=== PATIENT | male | born 1960 | race Caucasian/White ===

== ENCOUNTER 2021-12-11 21:33 | Observation (INO) ==
--- NOTE | 2021-12-11 21:42 | Emergency Department Note ---
Impression & Plan Acute dehydration, Nausea and vomiting, Abdominal discomfort, Prostate cancer metastatic to bone ED Provider Note NAME: AMBER PERRY AGE: 61 SEX: M : 1960 ARRIVES VIA: Walk-In INFORMANT: [Patient][, ] ED PROVIDER(S): [Manuel Keane MD] Chief Complaint: Nausea vomiting HPI: Patient presents primarily with concern for nausea vomiting patient has been unable to keep anything down for about 3-day period. The patient states that he did have some diarrhea and today noticed some slight blood in the stools . The patient does have abdominal discomfort which is generalized does not describe it as pain. Patient denies any fevers but has felt chilled. Patient does have a history of prostate and bone CA for which the patient does follow with hematology oncology Dr. Roland. The patient most recently had chemotherapy 1 week prior. Patient denies any upper respiratory symptoms. Patient denies any chest pains or shortness of breath. The patient has noticed some slight leg swelling may be slightly worse compared to before. Patient denies any known sick contacts or recent travel. Patient denies any dysuria or hematuria. ROS: See HPI for pertinent positives and negatives. A total of 10 systems were reviewed and otherwise negative. Past medical history: See below Surgical history: See below Social history: See below Physical Exam: GENERAL: NAD, [wearing a mask,] non-toxic. EYE EXAM: Normal conjunctiva. PERRL, no anisocoria and EOM's grossly intact w/o pain. NECK: Supple, no nuchal rigidity, no adenopathy, non-tender. No signs of meningismus. LUNGS: Clear to auscultation. Normal chest wall mechanics. HEART: Tachycardic and regular, no MRG. ABDOMEN: Abdomen soft, mild discomfort throughout but without peritonitis or localized pain, normo-active bowel sounds, no masses, no rebound or guarding. BACK: No CVA TTP. SKIN: No rashes and no bruising. UPPER EXTREMITIES: Upper extremities are grossly normal. LOWER EXTREMITIES: Grossly normal, no edema. NEURO EXAM: A&O x3, cranial nerves II-XII grossly intact, normal speech, moves all 4 extremities on command w/o issue. Differential diagnoses: Gastroenteritis, food borne illness, infections, appendicitis, diverticulitis, inflammatory bowel disease, obstruction, GI bleed, biliary pathology, volvulus, as well as other pathologies. Course: Patient was seen and evaluated the bedside. Full history physical exam was performed. [EKG interpreted by me] Sinus tachycardia with PVCs noted, rate of 124, normal intervals, normal axis, no ST changes. Imaging Studies: See Below [Cardiac monitoring: An order was placed for continuous cardiac monitoring. The monitor shows a rate of 112 with tachycardic and regular rhythm.] MDM: Patient presents due to concern for vomiting with generalized abdominal discomfort. Blood work was obtained along with procalcitonin and blood cultures. The patient was ordered IV fluids and antiemetics. Upon reassessment the patient was feeling improved. The patient states that abdominal discomfort had also improved. The patient does have a white count of 18 I do think the patient may have an element of a enteritis which may be causing his symptoms. Given the patient does have a white count with associated mild elevation of procalcitonin Zosyn was also ordered. Patient did have a white count of 18 with a hemoglobin of 12. The patient's kidney function does show prerenal azotemia. Mild hypokalemia was noted. COVID-negative. Given the patient's history of chemotherapy and cancer with associated chills and white count meeting sepsis criteria do think the patient would benefit from further treatment as an inpatient. I did speak with Dr. Campos and the patient was admitted to the inpatient service. Urinalysis was pending at the time of admission. Past Med/Surg History Social History Smoking Status: Never smoker Second Hand Exposure: No; Do You Dip or Chew Tobacco: Yes; Tobacco Cessation Education Requested by Patient: No Hx Alcohol Use: No Hx Substance Use: No Preferred Language: Bulgarian Communication Ability: Effective Restorative Coordinator Required: No Beliefs That Will Affect Care: None marital status: Single Current Living Situation: Alone Other Information That Helps Us Care for You: No Feels Safe at Home: Yes Safety Concerns: Feels Safe At This Time Assistive Devices: Cane, Walker and Wheelchair Allergies Allergies Allergy/AdvReac Type Severity Reaction Status Date / Time No Known Allergies Allergy Verified 12/12/21 04:36 Home Meds Home Medications Medication Instructions Recorded Confirmed clonidine HCl 0.1 mg tablet 0.1 mg PO TID 12/12/21 12/12/21 cyclobenzaprine 10 mg tablet 10 mg PO BID 12/12/21 12/12/21 metoprolol succinate 50 mg 50 mg PO DAILY 12/12/21 12/12/21 tablet,extended release 24 hr ondansetron HCl 8 mg tablet 8 mg PO Q6 PRN 12/12/21 12/12/21 oxycodone 10 mg tablet 10 mg PO .Q4-6HRS PRN 12/12/21 12/12/21 prednisone 5 mg tablet 5 mg PO BID 12/12/21 12/12/21 Previous Rx's Medication Instructions Recorded diphenoxylate-atropine 2.5 1 tab PO Q6H PRN #14 tab 12/12/21 mg-0.025 mg tablet (Lomotil) Results & Data (ED) Vital Signs Vital Signs - 24 hr 12/11/21 21:35 12/11/21 22:33 12/12/21 00:06 Temperature 37.2 C Temperature Source Oral Pulse Rate 125 H Pulse Rate [Apical] 114 H 113 H Respiratory Rate 16 22 20 Respiratory Effort / Characteristics Non-Labored Spontaneous Non-Labored Non-Labored Spontaneous Respiratory Depth Normal Normal Normal Blood Pressure 153/106 H Blood Pressure [Left Arm] 170/110 H 151/116 H Blood Pressure Mean 121 Blood Pressure Mean [Left Arm] 130 127 Blood Pressure Position Sitting Blood Pressure Position [Left Arm] Sitting Pulse Oximetry 98 98 97 Oxygen Delivery Method Room Air Room Air Room Air Sepsis Recent Fever Within 48 Hours No Sepsis New/Unexplained Change in Mental Status N/A Sepsis Action Taken by Nursing No Action Required Home Medications Current Medication List: was personally reviewed by me Laboratory Data Attestation: I reviewed the patient's lab results. Result diagrams: 12/12/21 05:32 12/12/21 05:32 Lab Results 12/11/21 12/11/21 12/11/21 Range/Units 22:46 22:46 22:46 WBC 18.69 H (4.8-10.8) K/uL RBC 3.89 L (4.7-6.1) M/uL Hgb 12.0 L (14.0-18.0) g/dL Hct 35.4 L (42-52) % MCV 91.0 (80-100) fL MCH 30.8 (25-34) pg MCHC 33.9 (32-36) g/dL RDW Std Deviation 48.7 H (36.4-46.3) fL RDW Coeff of Emelina 14.6 H (11.5-14.5) % Plt Count 346 (130-400) K/uL MPV 9.0 (7.4-10.4) fL Neutrophils % (Manual) 81.5 % Lymphocytes % (Manual) 16.7 % Monocytes % (Manual) 0.9 % Myelocytes % (Man) 0.9 % Neutrophils # (Manual) 15.23 H (1.4-6.5) K/uL Total Absolute Neuts 15.23 H (1.4-6.5) K/uL Lymphocytes # (Manual) 3.12 (1.2-3.4) K/uL Total Abs Lymphocytes 3.12 (1.2-3.4) K/uL Monocytes # (Manual) 0.17 (0.11-0.59) K/uL Myelocytes # (Manual) 0.17 H (0-0) K/uL RBC Morphology Unremarkable Sodium 134 L (136-145) mmol/L Potassium 3.3 L (3.5-5.1) mmol/L Chloride 98 (98-107) mmol/L Carbon Dioxide 23 (21-32) mmol/L Anion Gap 13 H (3-11) BUN 24 H (6-23) mg/dl Creatinine 0.93 (0.6-1.4) mg/dl Est Cr Clr Drug Dosing 93.5 ml/min Est GFR ( Amer) 103.8 ml/min Est GFR (Non-Af Amer) 89.5 ml/min BUN/Creatinine Ratio 25.8 H (10-20) Glucose 115 H (70-99(Fasting)) mg/dl Lactate (0.4-2.0) mmol/L Calcium 9.3 (8.5-10.1) mg/dl Magnesium 2.0 (1.7-2.4) mg/dl Total Bilirubin 0.8 (0.2-1.0) mg/dl AST 12 L (13-39) U/L ALT 11 (7-52) U/L Alkaline Phosphatase 194 H (34-104) U/L Total Protein 7.2 (6.0-8.3) gm/dl Albumin 4.5 (3.4-5.0) gm/dl Globulin 2.7 (2.5-4.0) gm/dl Albumin/Globulin Ratio 1.7 (0.9-2) Lipase 22 (11-82) U/L Procalcitonin 1.07 H (0-0.5) ng/ml SARS-CoV-2, RNA, NAAT (NEGATIVE) 12/11/21 12/11/21 Range/Units 22:46 23:11 WBC (4.8-10.8) K/uL RBC (4.7-6.1) M/uL Hgb (14.0-18.0) g/dL Hct (42-52) % MCV (80-100) fL MCH (25-34) pg MCHC (32-36) g/dL RDW Std Deviation (36.4-46.3) fL RDW Coeff of Emelina (11.5-14.5) % Plt Count (130-400) K/uL MPV (7.4-10.4) fL Neutrophils % (Manual) % Lymphocytes % (Manual) % Monocytes % (Manual) % Myelocytes % (Man) % Neutrophils # (Manual) (1.4-6.5) K/uL Total Absolute Neuts (1.4-6.5) K/uL Lymphocytes # (Manual) (1.2-3.4) K/uL Total Abs Lymphocytes (1.2-3.4) K/uL Monocytes # (Manual) (0.11-0.59) K/uL Myelocytes # (Manual) (0-0) K/uL RBC Morphology Sodium (136-145) mmol/L Potassium (3.5-5.1) mmol/L Chloride (98-107) mmol/L Carbon Dioxide (21-32) mmol/L Anion Gap (3-11) BUN (6-23) mg/dl Creatinine (0.6-1.4) mg/dl Est Cr Clr Drug Dosing ml/min Est GFR ( Amer) ml/min Est GFR (Non-Af Amer) ml/min BUN/Creatinine Ratio (10-20) Glucose (70-99(Fasting)) mg/dl Lactate 1.4 (0.4-2.0) mmol/L Calcium (8.5-10.1) mg/dl Magnesium (1.7-2.4) mg/dl Total Bilirubin (0.2-1.0) mg/dl AST (13-39) U/L ALT (7-52) U/L Alkaline Phosphatase (34-104) U/L Total Protein (6.0-8.3) gm/dl Albumin (3.4-5.0) gm/dl Globulin (2.5-4.0) gm/dl Albumin/Globulin Ratio (0.9-2) Lipase (11-82) U/L Procalcitonin (0-0.5) ng/ml SARS-CoV-2, RNA, NAAT NEGATIVE (NEGATIVE) Administered Medications Discontinued Medications Clonidine HCl (Clonidine Hcl 0.1 Mg Tab) 0.1 mg PO TID [facility] Stop: 01/11/22 08:59 Last Admin: 12/12/21 13:04 Dose: 0.1 mg Documented by: [id number] Admin: 12/12/21 08:20 Dose: 0.1 mg Documented by: [id number] Cyclobenzaprine HCl (Cyclobenzaprine Hcl 10 Mg Tab) 10 mg PO BID LINDY Stop: 01/11/22 08:59 Last Admin: 12/12/21 08:20 Dose: 10 mg Documented by: [id number] Enoxaparin Sodium (Enoxaparin Inj 40 Mg/0.4 Ml Syr) 40 mg SQ Q24H LINDY Stop: 01/11/22 08:59 Last Admin: 12/12/21 08:21 Dose: 40 mg Documented by: [id number] Sodium Chloride (Nss 1000ml) 2,000 mls @ 999 mls/hr IV .Q2H1M LINDY Stop: 12/12/21 00:00 Last Infusion: 12/12/21 02:03 Dose: 0 mls/hr Documented by: [id number] Admin: 12/11/21 22:43 Dose: 999 mls/hr Documented by: [id number] Piperacillin Sod/Tazobactam Sod (Zosyn) 4.5 gm in 120 mls @ 240 mls/hr IV NOW ONE Stop: 12/12/21 00:13 Last Infusion: 12/12/21 00:42 Dose: 0 mls/hr Documented by: [id number] Admin: 12/12/21 00:01 Dose: 240 mls/hr Documented by: [id number] Sodium Chloride (Nss 1000ml) 1,000 mls @ 125 mls/hr IV .Q8H [facility] Stop: 01/11/22 02:27 Last Admin: 12/12/21 10:21 Dose: 125 mls/hr Documented by: [id number] Infusion: 12/12/21 10:21 Dose: 125 mls/hr Documented by: [id number] Admin: 12/12/21 02:28 Dose: 125 mls/hr Documented by: [id number] Potassium Chloride (K Lino / Wtr) 10 meq in 100 mls @ 100 mls/hr IV Q1H LINDY; Protocol Stop: 12/12/21 06:27 Last Infusion: 12/12/21 08:55 Dose: 0 mls/hr Documented by: [id number] Admin: 12/12/21 07:50 Dose: 100 mls/hr Documented by: [id number] Infusion: 12/12/21 07:45 Dose: 0 mls/hr Documented by: [id number] Admin: 12/12/21 06:44 Dose: 100 mls/hr Documented by: [id number] Infusion: 12/12/21 06:43 Dose: 100 mls/hr Documented by: [id number] Admin: 12/12/21 05:43 Dose: 100 mls/hr Documented by: [id number] Infusion: 12/12/21 03:28 Dose: 100 mls/hr Documented by: [id number] Admin: 12/12/21 02:28 Dose: 100 mls/hr Documented by: [id number] Ioversol (Optiray 320 100ml) 100 ml IV ONCE ONE Stop: 12/12/21 02:03 Last Admin: 12/12/21 02:02 Dose: 93 ml Documented by: [id number] Lactobacillus Acidophilus (Advanced Probiotic 1250 Mg Capsule) 2 cap PO DAILY LINDY Stop: 01/11/22 08:59 Last Admin: 12/12/21 08:20 Dose: 2 cap Documented by: [id number] Metoprolol Succinate (Metoprolol Succ 50mg Ext Rel Tab) 50 mg PO DAILY LINDY Stop: 01/11/22 08:59 Last Admin: 12/12/21 08:20 Dose: 50 mg Documented by: [id number] Miscellaneous Information (Patient's Allergy Info Needs Entered) 1 ea N/A NOW STA Stop: 12/12/21 03:30 Last Admin: 12/12/21 04:38 Dose: 1 ea Documented by: [id number] Ondansetron HCl (Ondansetron Inj 2 Mg/Ml 2 Ml Vial) 4 mg IV NOW STA Stop: 12/11/21 21:57 Last Admin: 12/11/21 23:27 Dose: 4 mg Documented by: [id number] Ondansetron HCl (Ondansetron 4 Mg Od Tab) 8 mg PO Q6 PRN PRN Reason: Nausea Stop: 01/11/22 03:24 Last Admin: 12/12/21 07:50 Dose: 8 mg Documented by: [id number] Oxycodone HCl (Oxycodone Hcl Ir 5 Mg Tab (Immediate Release)) 10 mg PO NOW STA Stop: 12/12/21 01:24 Last Admin: 12/12/21 01:35 Dose: 10 mg Documented by: [id number] Oxycodone HCl (Oxycodone Hcl Ir 5 Mg Tab (Immediate Release)) 10 mg PO Q6H PRN PRN Reason: Pain Stop: 12/26/21 02:27 Last Admin: 12/12/21 07:50 Dose: 10 mg Documented by: [id number] Pantoprazole Sodium (Pantoprazole 40 Mg Tab) 40 mg PO DAILY LINDY Stop: 01/11/22 08:59 Last Admin: 12/12/21 09:51 Dose: 40 mg Documented by: [id number] Discharge Plan Visit Data Chief Complaint: Vomiting Stated Complaint: VOMITING. BLOOD IN STOOL. CHILLS ED Provider: Manuel Keane Discharge Problem: Acute dehydration, Nausea and vomiting, Abdominal discomfort, Prostate cancer metastatic to bone Patient Disposition: Admitted As Inpatient Discharge Instructions Interventions: ED Discharge Assessment Last Done: 12/12/21 02:09
[2021-12-11] MEDS ORDERED: ONDANSETRON INJ 2 MG/ML 2 ML VIAL IV STA (21:56)
[2021-12-11] MEDS ORDERED: SODIUM CHLORIDE 0.9% 1000ML 2,000 ML IV SCH (22:00)
[2021-12-11 23:06] LABS: Hematocrit (blood only) 35.4 % (42-52); Mean Corpuscular Hemoglobin 30.8 pg (25-34); Mean Corpuscular Hgb Conc 33.9 g/dL (32-36); Platelet Count 346 K/uL (130-400); RDW Coefficient of Variation 14.6 % (11.5-14.5); RDW Standard Deviation 48.7 fL (36.4-46.3); Red Blood Count 3.89 M/uL (4.7-6.1); White Blood Count 18.69 K/uL (4.8-10.8)
[2021-12-11 23:20] LABS: ALC (manual) 3.12 K/uL (1.2-3.4); ANC (manual) 15.23 K/uL (1.4-6.5); Lymphocytes # (manual) 3.12 K/uL (1.2-3.4); Lymphocytes % (manual) 16.7 %; Monocytes # (manual) 0.17 K/uL (0.11-0.59); Monocytes % (manual) 0.9 %; Myelocytes # (manual) 0.17 K/uL (0-0); Myelocytes % (manual) 0.9 %; Neutrophils # (manual) 15.23 K/uL (1.4-6.5); Neutrophils % (manual) 81.5 %; RBC Morphology Unremarkable
[2021-12-11 23:22] LABS: Albumin Globulin Ratio 1.7 (0.9-2); Albumin Level 4.5 gm/dl (3.4-5.0); BUN Creatinine Ratio 25.8 (10-20); Bilirubin,Total 0.8 mg/dl (0.2-1.0); Calcium 9.3 mg/dl (8.5-10.1); Creatinine Clr Calc Pharmacy 93.5 ml/min; Est GFR (African American) 103.8 ml/min; Est GFR (Non-African American) 89.5 ml/min; Globulin 2.7 gm/dl (2.5-4.0); Potassium 3.3 mmol/L (3.5-5.1); Total Protein 7.2 gm/dl (6.0-8.3)
[2021-12-11] MEDS ORDERED: PIPERACILLIN/TAZOBACTAM 4.5 GM/120 ML BAG IV ONE (23:44)
[2021-12-12] MEDS ORDERED: oxyCODONE HCL IR 5 MG TAB (IMMEDIATE RELEASE) PO STA (01:23)
[2021-12-12] MEDS ORDERED: OPTIRAY 320 100ml IV ONE (02:02)
--- NOTE | 2021-12-12 02:21 | History & Physical Report ---
Date of Service December 12, 2021 Assessment & Plan (1) Nausea and vomiting: Plan: Abhijit Brennan is a 61-year-old male with past medical history of prostate cancer with metastases to bone and hypertension who presented due to GI symptoms for the past couple of days. Admitted for further workup as well as IV hydration in the setting of PO intolerance. Nausea/vomiting/abdominal discomfort Symptoms likely due to gastroenteritis do sound more consistent with viral gastroenteritis, however his immunosuppression and elevated Pro-Favian concerning for bacterial infection Blood cultures taken in ED monitor Stool PCR ordered CT abdomen/pelvis ordered Received dose of IV Zosyn in ED will hold on further antibiotics at this time until above results available, especially in case of possible E. coli O157: H7 as antibiotics could precipitate hemolytic uremic syndrome IV fluids for maintenance Replete potassium in the setting of GI losses Antiemetics as needed Admit to [facility] Hypertension Continue home clonidine and metoprolol succinate Prostate cancer with bone metastasis Followed by [facility] cancer care partnership Last chemotherapy last week Immunosuppression making patient high risk for bacterial infection blood cultures pending, see above Continue as needed oxycodone and cyclobenzaprine for chronic low back pain related to bony metastasis Holding twice daily prednisone at this time due to abdominal discomfort/nausea/vomiting DVT prophylaxis: Lovenox SQ FEN/GI: NPO, NSS at 125 cc/h, pantoprazole for GI ppx Dispo: Admit to [facility] CODE STATUS: Full, discussed with patient (2) Abdominal discomfort: (3) Prostate cancer metastatic to bone: (4) Hypertension: History of Present Illness Primary Care Provider: Joe George Abhijit Brennan is a 61-year-old male with past medical history of prostate cancer with metastases to bone and hypertension who presented due to GI symptoms for the past couple of days. Patient states he has had nausea, vomiting, sweats, chills, loss of appetite, fatigue. Has been unable to tolerate much oral nutrition, as most of what he consumes comes back up. Says he has tolerated small amounts of water, but admittedly not as much as he is likely to need. He has not noticed any diarrhea but does say that earlier today he had a small amount of a small amount of red blood in one of his bowel movements. Feels he had some mild abdominal discomfort related more to his nausea and vomiting, but not overt abdominal pain. Does not have any known sick contacts. Denies chest pain, palpitations, shortness of breath, cough, congestion, rashes, headaches, dizziness. He denies any new urinary symptoms, but does have urgency and frequency at baseline. No dysuria at this time. He does get chemotherapy with [facility] cancer care partnership last time about a week ago. In ED, patient had lab work significant for an elevated white count at 18.69, hypokalemia of 3.3, alk phos of 194, Pro-Favian of 1.07. Of note, patient had abdomen/pelvis CT in September, which showed bladder wall thickening and nonspecific sigmoid colon thickening considered to potentially represent posttreatment changes or infectious/inflammatory process. Allergies Allergy/AdvReac Type Severity Reaction Status Date / Time No Known Allergies Allergy Verified 12/12/21 04:36 Home Medications Medication Instructions Recorded Confirmed Type clonidine HCl 0.1 mg tablet 0.1 mg PO TID 12/12/21 12/12/21 History cyclobenzaprine 10 mg tablet 10 mg PO BID 12/12/21 12/12/21 History diphenoxylate-atropine 2.5 1 tab PO Q6H PRN #14 tab 12/12/21 Rx mg-0.025 mg tablet (Lomotil) metoprolol succinate 50 mg 50 mg PO DAILY 12/12/21 12/12/21 History tablet,extended release 24 hr ondansetron HCl 8 mg tablet 8 mg PO Q6 PRN 12/12/21 12/12/21 History oxycodone 10 mg tablet 10 mg PO .Q4-6HRS PRN 12/12/21 12/12/21 History prednisone 5 mg tablet 5 mg PO BID 12/12/21 12/12/21 History Past Med/Surg History Social History Smoking Status: Never smoker Second Hand Exposure: No; Do You Dip or Chew Tobacco: Yes; Tobacco Cessation Education Requested by Patient: No Hx Alcohol Use: No Hx Substance Use: No Preferred Language: Nepali Communication Ability: Effective Credit Union Field Examiner Required: No Beliefs That Will Affect Care: None marital status: Single Current Living Situation: Alone Other Information That Helps Us Care for You: No Feels Safe at Home: Yes Safety Concerns: Feels Safe At This Time Assistive Devices: Cane, Walker and Wheelchair Review of Systems Review of Systems: All systems reviewed & are unremarkable except as noted in HPI & below Physical Exam Physical Exam: GENERAL: A&Ox3. NAD. HEENT: PERRL, EOMI. Moist mucous membranes. NECK: No JVD. No lymphadenopathy. CHEST/LUNGS: CTAB A/P. No crackles, wheezes, rales, rhonchi. Right-sided chemo port on chest without surrounding erythema or signs of infection at this time. HEART: RRR. No m/g/r. No carotid bruits. ABDOMEN: NT/ND, soft. BS+ x4 EXTREMITIES: No cyanosis, no clubbing, no edema SKIN: Warm and dry. No rashes or lesions. PSYCHIATRIC: Euthymic affect, no SI, no pressured speech, no hallucinations NEUROLOGIC: No FND. CN II-XII grossly intact. Results & Data Results & Data ([facility]) Vital Signs (Past 12 Hours) Vital Signs Temp Pulse Pulse Resp BP BP Pulse Ox 12/12/21 00:06 113 H 20 151/116 H 97 12/11/21 22:33 114 H 22 170/110 H 98 12/11/21 21:35 37.2 C 125 H 16 153/106 H 98 Code Status & VTE Plan VTE Prophylaxis Plan VTE Prophylaxis will be ordered: Yes Supervising Physician Co-Signing Physician Notes Attending addendum: I have physically seen this patient, have supervised the medical residents activities, and agree with the H&P unless as otherwise noted. Assessment and Plan: Nausea/vomiting/abdominal discomfort- Follow results of stool PCR. If negative, would start on IV antibiotics Follow results of blood cultures Received a single dose of Zosyn from the ED, will hold on further antibiotics at this time until PCR returns Previous CT scans of questioned inflammatory/infectious process noted in September, repeat CT if symptoms persist Zofran 4 mg IV every 6 hours as needed Famotidine 20 mg IV every 12 hours Hypertension - continue clonidine and metoprolol succinate with hold parameters Prostate cancer with bone mets- Most recent chemotherapy last week Monitor for secondary infection associated with immunosuppressive state Remaining orders and notations as noted Resident Activity Tracking Resident Involvement: Resident Care Provided Care Provided: Adult [facility] Medicine
[2021-12-12] MEDS: POTASSIUM CHLORIDE / WTR 10 MEQ/100 ML PLCT IV SCH ×4 (02:28→07:50)
[2021-12-12] MEDS ORDERED: ACETAMINOPHEN 325 MG TAB PO PRN (02:28)
[2021-12-12] MEDS: SODIUM CHLORIDE 0.9% 1000ML 1,000 ML IV SCH ×2 (02:28→10:21)
[2021-12-12] MEDS ORDERED: oxyCODONE HCL IR 5 MG TAB (IMMEDIATE RELEASE) PO PRN (02:28)
[2021-12-12] MEDS ORDERED: ONDANSETRON 4 MG OD TAB PO PRN (03:25)
[2021-12-12] MEDS ORDERED: Patient's ALLERGY Info needs ENTERED STA (03:29)
[2021-12-12 04:05] LABS: Appearance Urine Clear (Clear); Bacteria Urine Automated Negative (Negative); Bilirubin Urine Negative (Negative); Blood Urine 3+ (Negative); Cast Urine Automated 0 /lpf (0-5); Color Urine Yellow; Epithelial Cell Urine Auto 0-5 /lpf (0-5); Glucose Urine UA Negative (Negative); Ketones Urine Negative (Negative); Leukocyte Esterase Urine Negative (Negative); Nitrite Urine Negative (Negative); Protein Urine Trace (Negative); Specific Gravity Urine 1.037 (1.000-1.030); Urobilinogen Urine Negative (Negative)
[2021-12-12 05:53] LABS: Hematocrit (blood only) 33.4 % (42-52); Hemoglobin 11.2 g/dL (14.0-18.0); Mean Corpuscular Hemoglobin 30.6 pg (25-34); Mean Corpuscular Hgb Conc 33.5 g/dL (32-36); Mean Corpuscular Volume 91.3 fL (80-100); Mean Platelet Volume 8.5 fL (7.4-10.4); Platelet Count 293 K/uL (130-400); RDW Coefficient of Variation 14.5 % (11.5-14.5); RDW Standard Deviation 48.4 fL (36.4-46.3); Red Blood Count 3.66 M/uL (4.7-6.1); White Blood Count 14.48 K/uL (4.8-10.8)
[2021-12-12 06:23] LABS: ALC (manual) 2.77 K/uL (1.2-3.4); ANC (manual) 11.71 K/uL (1.4-6.5); Dohle Bodies 1+; Lymphocytes # (manual) 2.77 K/uL (1.2-3.4); Lymphocytes % (manual) 19.1 %; Neutrophils # (manual) 11.71 K/uL (1.4-6.5); Neutrophils % (manual) 80.9 %
[2021-12-12 06:26] LABS: Albumin Globulin Ratio 1.7 (0.9-2); Albumin Level 3.8 gm/dl (3.4-5.0); BUN Creatinine Ratio 19.1 (10-20); Bilirubin,Total 0.7 mg/dl (0.2-1.0); Calcium 7.9 mg/dl (8.5-10.1); Creatinine Clr Calc Pharmacy 84.6 ml/min; Est GFR (African American) 102.4 ml/min; Est GFR (Non-African American) 88.4 ml/min; Globulin 2.3 gm/dl (2.5-4.0); Magnesium 1.9 mg/dl (1.7-2.4); Potassium 3.6 mmol/L (3.5-5.1); Total Protein 6.1 gm/dl (6.0-8.3)
[2021-12-12] MEDS: cloNIDine HCL 0.1 MG TAB PO SCH ×2 (08:20→13:04)
[2021-12-12] MEDS ORDERED: PANTOprazole 40 MG TAB PO SCH (09:00)
[2021-12-12] MEDS ORDERED: CYCLOBENZAPRINE HCL 10 MG TAB PO SCH (09:00)
[2021-12-12] MEDS ORDERED: ENOXAPARIN INJ 40 MG/0.4 ML SYR SQ SCH (09:00)
[2021-12-12] MEDS ORDERED: ADVANCED PROBIOTIC 1250 MG CAPSULE PO SCH (09:00)
[2021-12-12] MEDS ORDERED: METOPROLOL SUCC 50MG EXT REL TAB PO SCH (09:00)
--- NOTE | 2021-12-12 09:41 | CT Scan Report ---
CT abd pelvis IV con only CLINICAL HISTORY: abd discomfort, n/v TECHNIQUE: Helical axial images of the abdomen and pelvis were obtained and displayed. Automated dose lowering techniques and/or adjustment according to patient size were utilized for this exam. This e xam was performed with intravenous contrast. CT DOSE: 478.39 mGy.cm COMPARISON: Comparison is made to CT abdomen pelvis 09/12/2021 FINDINGS: Lower chest: No acute abnormality Liver: Unremarkable. No focal lesions are seen. Gallbladder and biliary tree: No calcified gallstones. Normal caliber wall. No intra- or extrahepatic biliary ductal dilation. Pancreas: Unremarkable, no focal lesions. Spleen: Unremarkable. Adrenals: Unremarkable. Kidneys and ureters: Mild to moderate left hydronephrosis and hydroureter of the proximal third of th e ureter without evidence of obstructing stone. This is new from prior exam. Mildly striated appearan ce of the right kidney, more pronounced than in the prior exam. Bladder: A tiny bladder diverticulum is seen in the left. Reproductive organs: Unremarkable. Bowel: Diverticulosis is seen without evidence of diverticulitis. Lymph nodes Retroperitoneal: Unremarkable. Mesenteric: Unremarkable. Pelvic: There is a 9 mm common iliac node on the left. Otherwise unremarkable. Peritoneum: Normal. Vessels: Unremarkable. Abdominal wall: Left fat containing inguinal hernia. A fat-containing umbilical hernia is seen. Bones: Extensive osteolytic metastatic disease is seen. IMPRESSION: 1. Mild/moderate hydronephrosis and hydroureter in the left kidney, new from prior exam, may represe nt recently passed stone. 2. Striated appearance of the right kidney is nonspecific, however correlation with urinalysis is re commended to exclude pyelonephritis. 3. Extensive osseous metastatic disease. ACT 112: Negative or not required by law. Electronically signed by: Jairo Beyer M.D. 12/12/2021 9:40 AM
--- NOTE | 2021-12-12 19:35 | Discharge Summary ---
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 Patient states he has had nausea, vomiting, sweats, chills, loss of appetite, fatigue. Has been unable to tolerate much oral nutrition, as most of what he consumes comes back up. Says he has tolerated small amounts of water, but admittedly not as much as he is likely to need. He has not noticed any diarrhea but does say that earlier today he had a small amount of a small amount of red blood in one of his bowel movements. Feels he had some mild abdominal discomfort related more to his nausea and vomiting, but not overt abdominal pain. Does not have any known sick contacts. Denies chest pain, palpitations, shortness of breath, cough, congestion, rashes, headaches, dizziness. He denies any new urinary symptoms, but does have urgency and frequency at baseline. No dysuria at this time. He does get chemotherapy with [facility] care [facility] last time about a week ago. In ED, patient had lab work significant for an elevated white count at 18.69, hypokalemia of 3.3, alk phos of 194, Pro-Favian of 1.07. Of note, patient had abdomen/pelvis CT in September, which showed bladder wall thickening and nonspecific sigmoid colon thickening considered to potentially represent posttreatment changes or infectious/inflammatory process. Principal Diagnosis Gastroenteritis possibly viral, microscopic hematuria possibly secondary to passing kidney stone Discharge Exam GENERAL: A&Ox3. NAD. HEENT: PERRL, EOMI. Moist mucous membranes. NECK: No JVD. No lymphadenopathy. CHEST/LUNGS: CTAB A/P. No crackles, wheezes, rales, rhonchi. Right-sided chemo port on chest without surrounding erythema or signs of infection at this time. HEART: RRR. No m/g/r. No carotid bruits. ABDOMEN: NT/ND, soft. BS+ x4 EXTREMITIES: No cyanosis, no clubbing, no edema SKIN: Warm and dry. No rashes or lesions. PSYCHIATRIC: Euthymic affect, no SI, no pressured speech, no hallucinations NEUROLOGIC: No FND. CN II-XII grossly intact. 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 Admitted for further workup as well as IV hydration in the setting of PO intolerance. Nausea/vomiting/abdominal discomfort Symptoms likely due to gastroenteritis do sound more consistent with viral gastroenteritis, however his immunosuppression and elevated Pro-Favian of 1.07 Blood cultures so far negative CT abdomen/pelvis showed: IMPRESSION: 1. Mild/moderate hydronephrosis and hydroureter in the left kidney, new from prior exam, may represent recently passed stone. 2. Striated appearance of the right kidney is nonspecific, however correlation with urinalysis is recommended to exclude pyelonephritis. 3. Extensive osseous metastatic disease. Urinalysis showed microscopic hematuria, creatinine was normal range, there was no evidence of bacteriuria and pyuria on urinalysis I examined the patient next day all of her symptoms had completely resolved, patient does not feel nauseated, patient was able to tolerate full liquid diet, no bowel movement on 12/12, lab work-up shows leukocytosis but per review of old blood work-up patient had persistent leukocytosis possibly secondary to widespread metastatic cancer , no significant lecture light abnormality, patient was hemodynamically stable, patient was discharged on as needed Zofran and Lomotil and recommend to follow full liquid diet and advance if he tolerates Hypertension Continue home clonidine and metoprolol succinate Prostate cancer with bone metastasis Followed by [facility] cancer care [facility] Last chemotherapy last week Immunosuppression making patient high risk for bacterial infection blood cultures pending, see above Continue as needed oxycodone and cyclobenzaprine for chronic low back pain related to bony metastasis DVT prophylaxis: Lovenox SQ FEN/GI: NPO, NSS at 125 cc/h, pantoprazole for GI ppx Dispo: Admit to [facility] CODE STATUS: Full, discussed with patient (2) Abdominal discomfort: (3) Prostate cancer metastatic to bone: (4) Hypertension: Total Time Total Time Spent Total Time Spent (In Minutes): 35-minute Discharge Plan Discharge Items Patient Disposition: Home - Self-Care Reason For Visit: NAUSEA, VOMITING Discharge Diagnosis: gasteroentritis Activity: Resume your previous activity Bathing: No limitations Sexual Activity: When tolerated Exercise/Sports: Gradually increase as tolerated Driving/Machine Use: No limitations Weightbearing: Full weightbearing Non-emergency contact: Primary Care Provider and Oncologist Call non-emergency contact if: you have any medication questions and your symptoms worsen Follow-up/Referrals: Joe George D.O. [Primary Care Provider] - 12/19/21 11:30 am Diet: Full liquid Diet Comment: advance your diet as you tolerate Addtl Attending Provider Instructions: follow with your primary care in one week Stand-Alone Forms: My [facility] Shoozy, Smoking Cessation Medications and DC Order Prescriptions: New diphenoxylate-atropine [Lomotil] 2.5-0.025 mg tablet 1 tab PO Q6H PRN (Reason: diarrhea) Qty: 14 RF: 0 Continued cyclobenzaprine 10 mg tablet 10 mg PO BID RF: 0 clonidine HCl 0.1 mg tablet 0.1 mg PO TID RF: 0 metoprolol succinate 50 mg tablet extended release 24 hr 50 mg PO DAILY RF: 0 ondansetron HCl 8 mg tablet 8 mg PO Q6 PRN (Reason: Nausea) RF: 0 prednisone 5 mg tablet 5 mg PO BID RF: 0 oxycodone 10 mg tablet 10 mg PO .Q4-6HRS PRN (Reason: Pain) RF: 0 Discontinued dexamethasone 4 mg tablet 8 mg PO DIRECTED RF: 0 Discharge Orders: Discharge Order (Routine); Ordered 12/12/21 Ordered By: Thiago Samson/Other Patient Handouts: Lomotil Oral Tablet 0.025 mg/2.5 mg, Nausea Vomit Control Admission Data Admit Date/Time: 12/12/21 01:35 Attending Provider: Thiago Nelson Admit Provider: Zia Liu Primary Care Provider: Joe George Other Providers: Neal Phillips ; [facility],Home Care Other Interventions: Discharge Summary Assessment (RN) Last Done: 12/12/21 16:42 Coding Level of Care Code D/C DAY MANAGEMENT >30 MINS Diagnoses Nausea and vomiting R11.2 Vomiting type: unspecified Abdominal discomfort R10.9 Prostate cancer metastatic to bone C61; C79.51 Hypertension I10
--- NOTE | 2021-12-12 20:44 | Billing Data ---
Date of Service December 12, 2021 Coding Level of Care Code 67158 Initial Inpt Care Lvl 2
--- NOTE | 2021-12-13 13:50 | Electrocardiogram Report ---
Test Reason : Blood Pressure : / mmHG Vent. Rate : 124 BPM Atrial Rate : 124 BPM P-R Int : 138 ms QRS Dur : 068 ms QT Int : 306 ms P-R-T Axes : 053 050 052 degrees QTc Int : 439 ms Sinus tachycardia with Premature ventricular complexes Otherwise normal ECG No previous ECGs available Confirmed by Bandar Naylor ([id number]) on 12/13/2021 1:49:59 PM Referred By: Joe George Confirmed By:Bandar Naylor
== END 2021-12-12 17:28 | disposition home or self-care (01) | DRG 392 ==
LOC: ED 21:33 → 3E 12-12 01:35 → SUATTDRO 12-12 01:35 → INTOOBSV 12-12 01:35 → 3E 12-12 02:09

== ENCOUNTER 2022-07-13 10:50 | Inpatient (IN) ==
[2022-07-13] MEDS ORDERED: ONDANSETRON INJ 2 MG/ML 2 ML VIAL IV STA (11:51)
[2022-07-13] MEDS ORDERED: SODIUM CHLORIDE 0.9% 1000ML 1,000 ML IV STA (11:51)
--- NOTE | 2022-07-13 12:02 | Emergency Department Note ---
Impression & Plan Prostate cancer metastatic to bone, Acute dehydration, Acute pain of left hip, Anemia, YASSINE (acute kidney injury) ED Provider Note NAME: AMBER PERRY AGE: 61 SEX: M : 1960 ARRIVES VIA: Walk-In INFORMANT: Patient, ED PROVIDER(S): Vadim Blount DO CHIEF COMPLAINT: Hip pain HPI: The patient is a 61-year-old male who has a history of metastatic prostate cancer who was sent from the [facility] for pain management and admission. The patient has a history of diagnosed prostate cancer 2 years ago. He states he has noticed that he has been taking his pain medication including fentanyl and oxycodone but continues to have very severe left hip pain. He denies having any recent trauma. He denies having any fever. He has no dysuria or frequency. The patient was at the [facility] center today and was sent here. The patient has been having nausea and vomiting and having difficulty keeping down his medications. ROS: See above HPI for pertinent positives & negatives. A total of 10 systems re viewed and were otherwise negative. PAST MEDICAL HISTORY: See Below PAST SURGICAL HISTORY: See Below FAMILY HISTORY: See Below SOCIAL HISTORY: See Below HOME MEDICATIONS: See Below ALLERGIES: See Below VITALS: See Below PHYSICAL EXAMINATION: GENERAL: The patient is awake and alert. He is very anxious appearing. EYES: The conjunctivae are pale. The pupils are round and reactive. EARS, NOSE, MOUTH AND THROAT: The nose is without any evidence of any deformity. Mucous membranes are dry NECK: The neck is nontender and supple. RESPIRATORY: Normal respiratory effort is noted there is no evidence of wheezing rhonchi or rales CARDIOVASCULAR: Tachycardic and regular heart sounds were noted auscultation. There is no definite murmur. GASTROINTESTINAL: The abdomen is soft. Abdomen is nontender. MUSCULOSKELETAL/EXTREMITIES: There is no gross deformity in either lower extremity. There is pain with range of motion testing of the left hip. SKIN: Skin is cool and dry. Pedal edema was noted bilaterally. Skin was pale. NEUROLOGIC: Patient is awake alert and oriented x3 MEDICAL DECISION MAKING: The patient is a 61-year-old male who presented to the emergency department for an evaluation of left hip pain. The patient has a history of metastatic prostate cancer. His pain is very poorly controlled as an outpatient even though he has been on medication for some time. The patient has not been eating or drinking as well. He appears to be somewhat dehydrated. I discussed patient's laboratory and radiographic studies with him. I independently reviewed the patient's films. [facility] have agreed to evaluate the patient in the emergency department for further management and disposition. Given the patient's degree of pain I do not feel he can manage this as an outpatient at this time. Triage Nursing notes reviewed. Prior medical records reviewed Vital Signs: reviewed and remarkable for tachycardia and hypertension. Differential diagnosis: Fracture, subluxation, dislocation, contusion, ligamentous injury, neurovascular, compartment syndrome, rhabdomyolysis, as well as other pathologies. ER treatment provided: See below Diagnostics interpreted by me: ECG: none Cardiac Monitoring: An order was placed for continuous cardiac monitoring. The monitor shows a rate of 113 bpm with sinus tachycardia. Laboratory studies: As stated above and show below. Imaging studies: See below Radiographic imaging was reviewed by myself Consultation(s): Discussed this case with Dr. Jordan who [facility]. I discussed the patient's condition with Elizabeth, who was evaluating the patient at the cancer center and who sent the patient to the emergency department. Past Med/Surg History Medical History Acute dehydration Hypertension Prostate cancer metastatic to bone Social History Smoking Status: Never smoker Second Hand Exposure: No; Hx Alcohol Use: No Hx Substance Use: Yes Substance Use Type Other:: medical marijuana Preferred Language: Ghanaian Communication Ability: Effective Personnel Research Scientist Required: No Beliefs That Will Affect Care: None marital status: Single Current Living Situation: Alone Feels Safe at Home: Yes Assistive Devices: None Allergies Allergies Allergy/AdvReac Type Severity Reaction Status Date / Time No Known Allergies Allergy Verified 07/13/22 15:19 Home Meds Home Medications Medication Instructions Recorded Confirmed clonidine HCl 0.1 mg tablet 0.1 mg PO TID 12/12/21 07/13/22 cyclobenzaprine 10 mg tablet 10 mg PO BID 12/12/21 07/13/22 metoprolol succinate 50 mg 50 mg PO DAILY 12/12/21 07/13/22 tablet,extended release 24 hr ondansetron HCl 8 mg tablet 8 mg PO Q6 PRN Nausea 12/12/21 07/13/22 prednisone 5 mg tablet 5 mg PO BID 12/12/21 07/13/22 Previous Rx's Medication Instructions Recorded diphenoxylate-atropine 2.5 1 tab PO Q6H PRN diarrhea #14 tabs 12/12/21 mg-0.025 mg tablet (Lomotil) Results & Data (ED) Vital Signs Vital Signs - 24 hr 07/13/22 11:42 Temperature 36.3 C L Temperature Source Temporal Artery Scan Pulse Rate 128 H Pulse Rhythm Regular Pulse Strength Normal Respiratory Rate 20 Respiratory Effort / Characteristics Non-Labored Spontaneous Respiratory Depth Normal Respiratory Pattern Regular Blood Pressure 142/96 H Blood Pressure Mean 111 Blood Pressure Position Sitting Pulse Oximetry 96 Oxygen Delivery Method Room Air Sepsis Recent Fever Within 48 Hours No Sepsis New/Unexplained Change in Mental Status N/A Sepsis Action Taken by Nursing No Action Required Home Medications Current Medication List: was personally reviewed by me Laboratory Data Attestation: I reviewed the patient's lab results. 07/13/22 12:18 07/13/22 12:18 Lab Results 07/13/22 07/13/22 07/13/22 Range/Units 12:18 12:18 12:18 WBC 10.74 (4.8-10.8) K/ul RBC 3.45 L (4.63-6.08) M/uL Hgb 9.3 L (14.0-18.0) g/dl Hct 28.1 L (40.1-51.0) % MCV 81.4 (80.0-100.0) fL MCH 27.0 (25.0-34.0) pg MCHC 33.1 (32.0-36.0) g/dL RDW Std Deviation 52.0 H (36.4-46.3) fL RDW Coeff of Emelina 17.5 H (11.5-14.5) % Plt Count 278 (130-400) K/uL MPV 9.0 L (9.4-12.4) fL Immature Gran % (Auto) 3.5 % Neut % (Auto) 73.4 % Lymph % (Auto) 15.4 % Kimball % (Auto) 6.3 % Eos % (Auto) 0.7 % Baso % (Auto) 0.7 % Neut # (Auto) 7.89 H (1.4-6.5) K/uL Lymph # (Auto) 1.65 (1.2-3.4) K/uL Kimball # (Auto) 0.68 (0.24-0.82) K/uL Eos # (Auto) 0.07 (0-0.50) K/uL Baso # (Auto) 0.07 (0-0.2) K/uL Immature Gran # (Auto) 0.38 H (0.00-0.02) K/uL Sodium 133 L (136-145) mmol/L Potassium 4.0 (3.5-5.1) mmol/L Chloride 97 L (98-107) mmol/L Carbon Dioxide 18 L (21-32) mmol/L Anion Gap 18 H (3-11) BUN 45 H (6-23) mg/dl Creatinine 1.92 H (0.6-1.4) mg/dl Est Cr Clr Drug Dosing Not Reportable Est GFR ( Amer) 43.2 ml/min Est GFR (Non-Af Amer) 37.3 ml/min BUN/Creatinine Ratio 23.4 H (10-20) Glucose 85 (70-99(Fasting)) mg/dl Calcium 8.1 L (8.5-10.1) mg/dl Magnesium 1.3 L (1.7-2.4) mg/dl Total Bilirubin 0.4 (0.2-1.0) mg/dl AST 64 H (13-39) U/L ALT 23 (7-52) U/L Alkaline Phosphatase 581 H (34-104) U/L Total Protein 6.4 (6.0-8.3) gm/dl Albumin 3.4 (3.4-5.0) gm/dl Globulin 3.0 (2.5-4.0) gm/dl Albumin/Globulin Ratio 1.1 (0.9-2) Lipase 24 (11-82) U/L Urine Color Yellow Urine Appearance Cloudy A (Clear) Urine pH 5.0 (4.5-7.5) Ur Specific [place] 1.012 (1.000-1.030) Urine Protein 1+ H (Negative) Urine Glucose (UA) Negative (Negative) Urine Ketones 1+ H (Negative) Urine Blood Trace H (Negative) Urine Nitrite Negative (Negative) Urine Bilirubin Negative (Negative) Urine Urobilinogen Negative (Negative) Ur Leukocyte Esterase Trace H (Negative) Urine WBC (Auto) 10-30 H (0-5) /hpf Urine RBC (Auto) 0-4 (0-4) /hpf U Hyaline Cast (Auto) 0 (0-5) /lpf U Epithel Cells (Auto) >30 H (0-5) /lpf Urine Bacteria (Auto) Negative (Negative) Uric Acid Crystals Present A (None Prsent) Amorphous Sediment Present A (None Prsent) Urine Yeast Not Reportable SARS-CoV-2, RNA, NAAT (NEGATIVE) 07/13/22 Range/Units 12:18 WBC (4.8-10.8) K/ul RBC (4.63-6.08) M/uL Hgb (14.0-18.0) g/dl Hct (40.1-51.0) % MCV (80.0-100.0) fL MCH (25.0-34.0) pg MCHC (32.0-36.0) g/dL RDW Std Deviation (36.4-46.3) fL RDW Coeff of Emelina (11.5-14.5) % Plt Count (130-400) K/uL MPV (9.4-12.4) fL Immature Gran % (Auto) % Neut % (Auto) % Lymph % (Auto) % Kimball % (Auto) % Eos % (Auto) % Baso % (Auto) % Neut # (Auto) (1.4-6.5) K/uL Lymph # (Auto) (1.2-3.4) K/uL Kimball # (Auto) (0.24-0.82) K/uL Eos # (Auto) (0-0.50) K/uL Baso # (Auto) (0-0.2) K/uL Immature Gran # (Auto) (0.00-0.02) K/uL Sodium (136-145) mmol/L Potassium (3.5-5.1) mmol/L Chloride (98-107) mmol/L Carbon Dioxide (21-32) mmol/L Anion Gap (3-11) BUN (6-23) mg/dl Creatinine (0.6-1.4) mg/dl Est Cr Clr Drug Dosing Est GFR ( Amer) ml/min Est GFR (Non-Af Amer) ml/min BUN/Creatinine Ratio (10-20) Glucose (70-99(Fasting)) mg/dl Calcium (8.5-10.1) mg/dl Magnesium (1.7-2.4) mg/dl Total Bilirubin (0.2-1.0) mg/dl AST (13-39) U/L ALT (7-52) U/L Alkaline Phosphatase (34-104) U/L Total Protein (6.0-8.3) gm/dl Albumin (3.4-5.0) gm/dl Globulin (2.5-4.0) gm/dl Albumin/Globulin Ratio (0.9-2) Lipase (11-82) U/L Urine Color Urine Appearance (Clear) Urine pH (4.5-7.5) Ur Specific [place] (1.000-1.030) Urine Protein (Negative) Urine Glucose (UA) (Negative) Urine Ketones (Negative) Urine Blood (Negative) Urine Nitrite (Negative) Urine Bilirubin (Negative) Urine Urobilinogen (Negative) Ur Leukocyte Esterase (Negative) Urine WBC (Auto) (0-5) /hpf Urine RBC (Auto) (0-4) /hpf U Hyaline Cast (Auto) (0-5) /lpf U Epithel Cells (Auto) (0-5) /lpf Urine Bacteria (Auto) (Negative) Uric Acid Crystals (None Prsent) Amorphous Sediment (None Prsent) Urine Yeast SARS-CoV-2, RNA, NAAT NEGATIVE (NEGATIVE) Administered Medications Discontinued Medications Hydromorphone HCl (Hydromorphone Inj 1 Mg/Ml Syringe) 1 mg IV Q15M PRN PRN Reason: Pain Stop: 07/27/22 11:50 Last Admin: 07/13/22 14:05 Dose: 1 mg Documented By: Admin: 07/13/22 12:40 Dose: 1 mg Documented By: LULA Sodium Chloride (Nss 1000ml) 1,000 mls @ 999 mls/hr IV .Q1H1M STA Stop: 07/13/22 12:51 Last Infusion: 07/13/22 13:44 Dose: 0 mls/hr Documented By: Admin: 07/13/22 12:40 Dose: 999 mls/hr Documented By: LULA Sodium Chloride (Nss 1000ml) 1,000 mls @ 999 mls/hr IV .Q1H1M ONE Stop: 07/13/22 14:39 Last Infusion: 07/13/22 16:12 Dose: 0 mls/hr Documented By: Admin: 07/13/22 14:00 Dose: 999 mls/hr Documented By: LULA Magnesium Sulfate/Dextrose (Magnesium Sulfate / D5w) 1 gm in 100 mls @ 100 mls/hr IV NOW STA Stop: 07/13/22 14:38 Last Infusion: 07/13/22 16:12 Dose: 0 mls/hr Documented By: Admin: 07/13/22 13:58 Dose: 100 mls/hr Documented By: LULA Ondansetron HCl (Ondansetron Inj 2 Mg/Ml 2 Ml Vial) 4 mg IV NOW STA Stop: 07/13/22 11:52 Last Admin: 07/13/22 12:40 Dose: 4 mg Documented By: LULA Imaging Data Radiologist's Impression: Hip/Pelvis X-Ray 07/13/22 12:01 XR hip LT 2V w pelvis CLINICAL HISTORY: Left-sided hip pain. COMPARISON STUDY: Abdomen and pelvis CT 05/21/2022. 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 No acute fracture or dislocation within the pelvis or hips. The sacrum is intact. Soft tissues are unremarkable. IMPRESSION: 1. No acute fracture or dislocation within the pelvis or hips. 2. Multifocal osteoblastic metastatic disease again noted. ACT 112: Negative or not required by law. Electronically signed by: Brayan Tran M.D. 07/13/2022 2:42 PM Discharge Plan Visit Data Chief Complaint: Pain (Generalized) Stated Complaint: PAIN, DR REF OVER ED Provider: Vadim Blount Discharge Problem: Prostate cancer metastatic to bone, Acute dehydration, Acute pain of left hip, Anemia, YASSINE (acute kidney injury) Patient Disposition: Being Evaluated by Hospitalist Discharge Instructions Interventions: ED Discharge Assessment Last Done: 07/13/22 15:53
--- NOTE | 2022-07-13 12:06 | History & Physical Report ---
Date of Service July 13, 2022 Assessment & Plan (1) Prostate cancer metastatic to bone: Plan: Goals of care: Discussed goals of care with patient at bedside during admission. Patient reports that he accepts that his cancer will progress, he will end up on hospi ce, and will eventually need to transition to comfort oriented care but does not feel that he is there yet. He reports that his pain has gradually worsened, and his p.o. intake is gradually declining, and acknowledges that he has had progression of his cancer on multiple different medications but still would like to see if he can recover with supportive care, fluid therapy, and if he improves with supportive care. He reports he is very familiar with hospice, and has had multiple family members on this and "will be next in line "but that he does not wish to pursue this at this time. He does feel that his ambulation has gradually worsened and is significantly limited by bone pain in his left hip which radiates to the knee and makes it difficult to bear weight. He is hopeful that palliative radiation will help his pain. He notes he was in 10/10 pain earlier, has come down to a 10 since being in the ER but now feels very nauseous. Reports he has had poor oral intake as he is just not hungry and gets intermittent nausea over the last few months. Would like to try nutrition supplements and IV fluids as needed to see if this improves his energy. Has been trying to set up with palliative care as an outpatient, is aware that that their scope of practice is not limited to but does include hospice, and would like to establish care for ongoing pain management. Discussed success rate of CPR/intubation and picture of success, patient acknowledges that at some point this will not be worth it to them and he understands that this could result in worsened pain from broken ribs or reduced function but at this time would like to remain full code and does not feel DNR/DNI is consistent with his goals. Metastatic prostate adenocarcinoma Most recent imaging: Liver ultrasound with biopsy 06/22/2022: Right hepatic lobe biopsy completed. CTA/P with IV and oral contrast: 1. Numerous foci of skeletal metastatic disease are seen, overall slightly progressed from prior exam.2. Interval development of a left external iliac lymph node measuring 13 mm, concerning for metastatic disease.3. Interval development of numerous enhancing liver lesions. Findings are concerning for hepatic metastases which were not seen on prior exams. Correlation with MRI liver mass protocol with urinalysis is recommended if not previously evaluated.4. Redemonstration of left h ydronephrosis without evidence of obstructing stone. - CT-H 04/03/22: IMPRESSION: There is no hemorrhage, mass effect, or evidence of acute territorial ischemia by CT criteria. - CT-Cspine 04/03/22: No acute fractures or subluxations are identified. Degenerative changes are seen in the visualized spine. Numerous blastic foci are seen in the visualized skeleton. The alignment is normal. Soft tissues are unremarkable. - CT-Chest 04/03/22: 1. There is no acute posttraumatic intrathoracic abnormality.2. There is no airspace consolidation, pleural effusion, or pneumothorax.3. There is multifocal hepatic metastatic disease. This is new from 12/15/2021.4. Again seen is diffuse osteoblastic metastatic disease. This appears progressive as compared to 12/15/2021.5. Left-sided hydronephrosis is partially visualized and likely unchanged.6. Additional findings as above. - Bone Scan 12/2021: Interval mild improvement in multifocal osseous signal, most pronounced in the ribs all may represent somewhat improved osseous metastatic disease. Per cancer care note 06/2022 Continued progression on multiple treatment options including enzalutamide, olaparib, Doxil Taxol, carbotaxol. Patient with significant bone pain 2/2 metastasis Zometa held due to worsening renal function ADT with leuprolide injections continued at [facility] Patient follows with Dr. Waters Referral previously placed to RT for palliative radiation therapy of left hip metastasis, pending consult 07/17 - Progressive despite multiple tx including enzalutamide, olaparib, Doxil Taxol, carbo as a Taxol. - Guarded prognosis, outpt referrals made to palliative care. Consulted while inpatient - Most severe pain suspect 2/2 bony metastasis at L buttock/hip Inadequate control with fentanyl 50 mcg every 3 days, oxycodone 20 mg every 4every 6. Increased to fent 75mcg patch and scaled hydromorphine. Pending radiation oncology evaluation/treatment was to have consult 07/17 - Rad/onc and pain management consulted - Continue multimodal pain control. 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 Can get to the bathroom at night but takes considerable effort and has had falls Palliative care referral placed 06/29/2022, has had difficulty getting with services - UA with trace leukocytes esterase, no overt bacteria, epithelial cells more consistent with contamination. No urinary symptoms. Follow culture. No leukocytosis. L Hip Pain -XR: 1. No acute fracture or dislocation within the pelvis or hips.2. Multifocal osteoblastic metastatic disease again noted. -Increased fentanyl patch from 50 up to 75, oral analgesia converted to IV, continue to follow. Palliative consulted, radiation oncology also consulted? If patient can receive palliative radiation while inpatient, was scheduled for this next week. We will hold Dex pending evaluation, continue baseline prednisone Chronic anemia MCV 81, hemoglobin 9.3 Trend H&H suspect 2/2 CKD with chronic cancer and poor nutritional status B12, folate, iron levels ordered YASSINE Patient previously with creatinine 1.22 prior to June 2022, has been 2.2 and 2.07 as outpatient in the setting of poor intake and chemo treatment Admitting creatinine 1.92 Unclear baseline, will trend and follow with fluids. Renally dose medications Elevated alk phos Likely 2/2 multiple bony mets, management of metastatic cancer as noted Hypomagnesemia Received repletion IV in er, +1g IV and then BID PO. Repeat pending. - Potassium wnl Hypertension Continue clonidine, metoprolol DVT prophylaxis: Defer Lovenox in the setting of YASSINE/unclear renal baseline. Heparin Disposition: Medical/telemetry Diet: Regular, nutrition consult placed to maximize calories Full code, discussed with patient. See goals of care above (2) Hypertension: (3) Acute dehydration: History of Present Illness Primary Care Provider: Joe George Abhijit Brennan is a 61-year-old male with a past medical history of prostate cancer with metastasis to bone, hypertension who presents to the ER on referral from the cancer care center for 04/16 intractable pain pending RT evaluation. Patient diagnosed with prostate cancer in April 2018, was found to have retroperitoneal adenopathy 05/2018, and bone scan 06/2018 indicated metastatic disease in posterior ribs, T11, midthoracic vertebrae. Was started on ADT with Lupron. Persistently elevated PSA 07/2019, was seen at [facility] and started on enzalutamide and Zometa. PSA rising 05/2020, CT revealed progression with bony metastasis. Based on tumor markers patient was switched to Lynparza 05/2020 and continue this until 04/2021 when his PSA again increased. CT 05/2021 with increasing number of metastatic disease in thoracic/lumbar spine. Docetaxel started 06/2021, this was poorly tolerated and treatment was held. Resumed treatment for cycle [address] chest 09/2021 with multifocal osteoblastic skeletal metastasis without pulmonary disease. Nuclear bone scan 12/2021 with mild improvement in bony signal, 2 pulmonary nodules right-sided appreciated. PSA rising 01/2022, PSMA denied by insurance. Cycle 10 of Doxil Taxol completed 02/2022 and discontinued subsequently. Carb as a Taxol 03/27/2022 - 05/27/2022. CT 05/2022 with continued progression of disease, enhancing liver lesions, and new left external iliac lymph node progression. Carb Acetoxyl discontinued due to progression. Patient was referred for a liver lesion biopsy in hopes of Caris testing and possible additional options, however overall prognosis guarded. Pathology results of biopsy 06/22/22: Liver, core biopsy: - Adenocarcinoma, consistent with metastatic adenocarcinoma of prostate origin. The vast majority of the core biopsy consists of benign liver tissue. The metastatic carcinoma represents an area no greater than 1.0 mm in greatest dimension. This case was discussed with Dr. Waters and given the small amount of tumor present it will not be sent for Caris testing. Hip deformity Appetite decreased. Globally weak 'whole body' left leg is the worst with severe bone pain. Pain in his L hip/buttock and radiates into the thigh, does not go past the knee. No foot drop. Some paresthesia in the thigh/ankle on the L, sensation is intact. No fevers, chills, or sweats. 'Don't know what ot call it, sometimes get some hot sweats or flushed but nothing new'. no chest pain or chest pressure. Denies pain in neck/spine 'thats not that bad, just really the left hip bone which has been there for a few months.' Worsening over last few months, much worse in last 24 hours and could not get comfortable. Morphine has helped and down to 8-9 from 04/16 at cancer center. Difficulty bearing weight due to lisa, but can do it. Current tx: Oxycodone, fentanyl 50mcg patch. Not sure which. Takes lupron. Was scheduled for radiation next week, was scheduled for first teatmetn ~07/17, has not had simulation Poo po intact, gradually declining. +N/+V worse after tx. Medical History: Reviewed Medications: Reviewed Surgical History: Reviewed Allergies: Reviewed Social History: Code Status: Most recent imaging: Liver ultrasound with biopsy 06/22/2022: Right hepatic lobe biopsy completed. CTA/P with IV and oral contrast: 1. Numerous foci of skeletal metastatic disease are seen, overall slightly progressed from prior exam.2. Interval development of a left external iliac lymph node measuring 13 mm, concerning for metastatic disease.3. Interval development of numerous enhancing liver lesions. Findings are concerning for hepatic metastases which were not seen on prior exams. Correlation with MRI liver mass protocol with urinalysis is recommended if not previously evaluated.4. Redemonstration of left hydronephrosis without evidence of obstructing stone. - CT-H 04/03/22: IMPRESSION: There is no hemorrhage, mass effect, or evidence of acute territorial ischemia by CT criteria. - CT-Cspine 04/03/22: No acute fractures or subluxations are identified. Degenerative changes are seen in the visualized spine. Numerous blastic foci are seen in the visualized skeleton. The alignment is normal. Soft tissues are unremarkable. - CT-Chest 04/03/22: 1. There is no acute posttraumatic intrathoracic abnormality.2. There is no airspace consolidation, pleural effusion, or pneumothorax.3. There is multifocal hepatic metastatic disease. This is new from 12/15/2021.4. Again seen is diffuse osteoblastic metastatic disease. This appears progressive as compared to 12/15/2021.5. Left-sided hydronephrosis is partially visualized and likely unchanged.6. Additional findings as above. - Bone Scan 12/2021: Interval mild improvement in multifocal osseous signal, most pronounced in the ribs all may represent somewhat improved osseous metastatic disease. Per cancer care note 06/2022 Dramatic progression on multiple treatment options including enzalutamide, olaparib, Doxil Taxol, carbotaxol. Patient with significant bone pain 2/2 metastasis Zometa held due to worsening renal function ADT with leuprolide injections continued at [facility] Patient follows with Dr. Waters Referral previously placed to RT for palliative radiation therapy of left hip metastasis, pending consult 07/17 Baseline EKG 04/03/22: nsr, qtc 416, no ST segment/t wave changes Allergies Allergy/AdvReac Type Severity Reaction Status Date / Time No Known Allergies Allergy Verified 07/13/22 15:19 Home Medications Medication Instructions Recorded Confirmed Type clonidine HCl 0.1 mg tablet 0.1 mg PO TID 12/12/21 07/13/22 History cyclobenzaprine 10 mg tablet 10 mg PO BID 12/12/21 07/13/22 History diphenoxylate-atropine 2.5 1 tab PO Q6H PRN diarrhea #14 tabs 12/12/21 07/13/22 Rx mg-0.025 mg tablet (Lomotil) metoprolol succinate 50 mg 50 mg PO DAILY 12/12/21 07/13/22 History tablet,extended release 24 hr ondansetron HCl 8 mg tablet 8 mg PO Q6 PRN Nausea 12/12/21 07/13/22 History prednisone 5 mg tablet 5 mg PO BID 12/12/21 07/13/22 History Past Med/Surg History Medical History Acute dehydration Hypertension Prostate cancer metastatic to bone Social History Smoking Status: Never smoker Second Hand Exposure: No; Hx Alcohol Use: No Hx Substance Use: Yes Substance Use Type Other:: medical marijuana Preferred Language: Belgian Communication Ability: Effective Veneer Stapler Required: No Beliefs That Will Affect Care: None marital status: Single Current Living Situation: Alone Feels Safe at Home: Yes Assistive Devices: None Review of Systems Review of Systems: All systems reviewed & are unremarkable except as noted in HPI & below Physical Exam Physical Exam: General: A&Ox3. Cachectic, frail appearing. HEENT: Atraumatic, normocephalic. Vision/hearing grossly intact. Eom intact. Pulm: CTAB A&P. -wheezes, -rales, -rhonchi. Symmetrical chest rise. No increased work of breathing. No respiratory distress. Cardiac: tachycardic while vomiting x1 during exam. -mrg. Radial pulses intact and symmetrical. Abdominal: Nausea/vomiting during exam with nonbloody/nonbilious emesis. Mild epigastric disconfort, but without rebound./guarding/rigidity. Ext: Thin. R 4+/5 hip flexion, L hip flexion 4-/5 limited by discomfort. bilat 5/5 ankle plantarflexion/dorsiflexion. Sensation intact but slightly diminished on L. PT pulses intact Results & Data Results & Data ([facility]) Vital Signs (Past 12 Hours) Vital Signs Temp Pulse Resp BP Pulse Ox O2 Del Method 07/13/22 11:42 36.3 C L 128 H 20 142/96 H 96 Room Air PG Care Time/CCT Total # of Minutes Spent Total Time Spent with Patient: Total time spent is greater than 50% in coordination of care (as documented) at patient's floor/unit and/or counseling patient: Coding Level of Care Code 98557 INT INP/OBS CARE 375MIN Diagnoses Prostate cancer metastatic to bone C61; C79.51 Hypertension I10 Acute dehydration E86.0
[2022-07-13] MEDS: HYDROmorphone INJ 1 MG/ML SYRINGE IV PRN ×2 (12:40→14:05)
[2022-07-13 12:54] LABS: Basophils # (auto) 0.07 K/uL (0-0.2); Basophils % (auto) 0.7 %; Eosinophils # (auto) 0.07 K/uL (0-0.50); Eosinophils % (auto) 0.7 %; Hematocrit (blood only) 28.1 % (40.1-51.0); Hemoglobin 9.3 g/dl (14.0-18.0); Immature Granulocytes # (auto) 0.38 K/uL (0.00-0.02); Immature Granulocytes % (auto) 3.5 %; Lymphocytes # (auto) 1.65 K/uL (1.2-3.4); Lymphocytes % (auto) 15.4 %; Mean Corpuscular Hgb Conc 33.1 g/dL (32.0-36.0); Mean Corpuscular Volume 81.4 fL (80.0-100.0); Monocytes # (auto) 0.68 K/uL (0.24-0.82); Monocytes % (auto) 6.3 %; Neutrophils # (auto) 7.89 K/uL (1.4-6.5); Neutrophils % (auto) 73.4 %; Platelet Count 278 K/uL (130-400); RDW Coefficient of Variation 17.5 % (11.5-14.5); Red Blood Count 3.45 M/uL (4.63-6.08); White Blood Count 10.74 K/ul (4.8-10.8)
[2022-07-13 13:12] LABS: Appearance Urine Cloudy (Clear); Bacteria Urine Automated Negative (Negative); Bilirubin Urine Negative (Negative); Blood Urine Trace (Negative); Color Urine Yellow; Epithelial Cell Urine Auto >30 /lpf (0-5); Glucose Urine UA Negative (Negative); Ketones Urine 1+ (Negative); Leukocyte Esterase Urine Trace (Negative); Nitrite Urine Negative (Negative); Protein Urine 1+ (Negative); Specific Gravity Urine 1.012 (1.000-1.030); Urobilinogen Urine Negative (Negative)
[2022-07-13 13:22] LABS: Alanine Aminotransferase 23 U/L (7-52); Albumin Globulin Ratio 1.1 (0.9-2); Albumin Level 3.4 gm/dl (3.4-5.0); Alkaline Phosphatase 581 U/L (34-104); Anion Gap 18 (3-11); Aspartate Aminotransferase 64 U/L (13-39); BUN Creatinine Ratio 23.4 (10-20); Bilirubin,Total 0.4 mg/dl (0.2-1.0); Blood Urea Nitrogen 45 mg/dl (6-23); Calcium 8.1 mg/dl (8.5-10.1); Carbon Dioxide 18 mmol/L (21-32); Chloride 97 mmol/L (98-107); Est GFR (African American) 43.2 ml/min; Est GFR (Non-African American) 37.3 ml/min; Glucose 85 mg/dl (70-99(Fasting)); Lipase 24 U/L (11-82); Magnesium 1.3 mg/dl (1.7-2.4); Sodium 133 mmol/L (136-145); Total Protein 6.4 gm/dl (6.0-8.3)
[2022-07-13 13:37] LABS: Uric Acid Crystals Urine Present (None Prsent)
[2022-07-13 13:38] LABS: Amorphous Sediment Urine Present (None Prsent); Cast Urine Automated 0 /lpf (0-5); RBC Urine Automated 0-4 /hpf (0-4)
[2022-07-13] MEDS ORDERED: MAGNESIUM SULFATE / D5W 1 GM/100 ML BAG IV STA (13:39)
[2022-07-13] MEDS ORDERED: SODIUM CHLORIDE 0.9% 1000ML 1,000 ML IV ONE (13:39)
--- NOTE | 2022-07-13 14:44 | XRay Report ---
XR hip LT 2V w pelvis CLINICAL HISTORY: Left-sided hip pain. COMPARISON STUDY: Abdomen and pelvis CT 05/21/2022. 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 No acute fracture or dislocation within the pelvis or hips. The sacrum is intact. Soft tissues are unre markable. IMPRESSION: 1. No acute fracture or dislocation within the pelvis or hips. 2. Multifocal osteoblastic metastatic disease again noted. ACT 112: Negative or not required by law. Electronically signed by: Brayan Tran M.D. 07/13/2022 2:42 PM
[2022-07-13] MEDS ORDERED: NALOXONE HCL 0.4 MG/1 ML VIAL/CARP IV PRN (16:09)
[2022-07-13] MEDS ORDERED: fentaNYL 50 MCG/HR TDSY TD SCH (16:30)
[2022-07-13] MEDS ORDERED: MAGNESIUM SULFATE / D5W 1 GM/100 ML BAG IV ONE (16:30)
[2022-07-13] MEDS: LACTATED RINGER'S 1,000 ML IV SCH (16:42)
[2022-07-13] MEDS: CHECK fentaNYL PATCH PLACEMENT SCH ×2 (16:42→23:45)
[2022-07-13] MEDS: LIDOCAINE 5% 1 PATCH TD SCH (17:37)
[2022-07-13] MEDS: CYCLOBENZAPRINE HCL 10 MG TAB PO SCH (20:29)
[2022-07-13] MEDS: predniSONE 5 MG TAB PO SCH (20:29)
[2022-07-13] MEDS: cloNIDine HCL 0.1 MG TAB PO SCH (20:29)
[2022-07-13] MEDS: MAGNESIUM OXIDE 400 MG TAB PO SCH (20:30)
[2022-07-13] MEDS: HEPARIN SOD 5,000 UNIT/0.5 ML VIAL SQ SCH (20:33)
[2022-07-14] MEDS: LACTATED RINGER'S 1,000 ML IV SCH (00:45)
[2022-07-14] MEDS: CHECK fentaNYL PATCH PLACEMENT SCH ×3 (09:16→23:59)
[2022-07-14] MEDS: LIDOCAINE 5% 1 PATCH TD SCH (09:18)
[2022-07-14] MEDS: PANTOprazole 40 MG TAB PO SCH (09:20)
[2022-07-14] MEDS: HEPARIN SOD 5,000 UNIT/0.5 ML VIAL SQ SCH ×2 (09:20→20:34)
[2022-07-14] MEDS: predniSONE 5 MG TAB PO SCH ×2 (09:20→20:34)
[2022-07-14] MEDS: CYCLOBENZAPRINE HCL 10 MG TAB PO SCH ×2 (09:21→20:34)
[2022-07-14] MEDS: METOPROLOL SUCC 50MG EXT REL TAB PO SCH (09:21)
[2022-07-14] MEDS: cloNIDine HCL 0.1 MG TAB PO SCH ×3 (09:21→20:34)
[2022-07-14] MEDS: MAGNESIUM OXIDE 400 MG TAB PO SCH ×2 (09:22→20:34)
[2022-07-14 09:32] LABS: Basophils # (auto) 0.04 K/uL (0-0.2); Basophils % (auto) 0.4 %; Eosinophils # (auto) 0.06 K/uL (0-0.50); Eosinophils % (auto) 0.6 %; Hematocrit (blood only) 25.2 % (40.1-51.0); Hemoglobin 8.3 g/dl (14.0-18.0); Immature Granulocytes # (auto) 0.38 K/uL (0.00-0.02); Immature Granulocytes % (auto) 4.1 %; Lymphocytes # (auto) 1.58 K/uL (1.2-3.4); Lymphocytes % (auto) 17.1 %; Mean Corpuscular Hemoglobin 26.8 pg (25.0-34.0); Mean Corpuscular Hgb Conc 32.9 g/dL (32.0-36.0); Mean Corpuscular Volume 81.3 fL (80.0-100.0); Mean Platelet Volume 8.7 fL (9.4-12.4); Monocytes # (auto) 0.61 K/uL (0.24-0.82); Monocytes % (auto) 6.6 %; Neutrophils # (auto) 6.59 K/uL (1.4-6.5); Neutrophils % (auto) 71.2 %; Platelet Count 207 K/uL (130-400); RDW Coefficient of Variation 17.7 % (11.5-14.5); RDW Standard Deviation 52.3 fL (36.4-46.3); White Blood Count 9.26 K/ul (4.8-10.8)
[2022-07-14 10:13] LABS: BUN Creatinine Ratio 19.8 (10-20); Calcium 8.5 mg/dl (8.5-10.1); Creatinine Clr Calc Pharmacy 34.5 ml/min; Est GFR (African American) 39.4 ml/min; Magnesium 1.7 mg/dl (1.7-2.4); Phosphorus 3.9 mg/dl (2.5-4.9); Potassium 4.6 mmol/L (3.5-5.1)
[2022-07-14] MEDS ORDERED: bisacodyL 10 MG SUPP PR STA (11:17)
[2022-07-14] MEDS: POLYETHYLENE (MIRALAX) 17 GM PACK PO SCH (12:33)
--- NOTE | 2022-07-14 14:25 | Hospitalist Progress Note ---
Date of Service July 14, 2022 Assessment & Plan (1) Prostate cancer metastatic to bone: Plan: - Progressive despite multiple tx including enzalutamide, olaparib, Doxil Taxol, carbo as a Taxol. - Guarded prognosis, outpt referrals made to palliative care. Consulted while inpatient - Most severe pain suspect 2/2 bony metastasis at L buttock/hip Inadequate control with fentanyl 50 mcg every 3 days, oxycodone 20 mg every 4every 6. Increased to fent 75mcg patch and scaled hydromorphine. Pending radiation oncology evaluation/treatment was to have consult 07/17 - Rad/onc and pain management consulted - Continue multimodal pain control. 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 Can get to the bathroom at night but takes considerable effort and has had falls Palliative care referral placed 06/29/2022, has had difficulty getting with services - UA with trace leukocytes esterase, no overt bacteria, epithelial cells more consistent with contamination. No urinary symptoms. Follow culture. No leukocytosis. L Hip Pain -XR: 1. No acute fracture or dislocation within the pelvis or hips.2. Multifocal osteoblastic metastatic disease again noted. -Increased fentanyl patch from 50 up to 75, oral analgesia converted to IV, continue to follow. Palliative consulted, radiation oncology also consulted? If patient can receive palliative radiation while inpatient, was scheduled for this next week. We will hold Dex pending evaluation, continue baseline prednisone Chronic anemia MCV 81, hemoglobin 9.3 Trend H&H suspect 2/2 CKD with chronic cancer and poor nutritional status B12, folate, iron levels ordered YASSINE Patient previously with creatinine 1.22 prior to June 2022, has been 2.2 and 2.07 as outpatient in the setting of poor intake and chemo treatment Admitting creatinine 1.92 Unclear baseline, will trend and follow with fluids. Renally dose medications Elevated alk phos Likely 2/2 multiple bony mets, management of metastatic cancer as noted Hypomagnesemia Received repletion IV in er, +1g IV and then BID PO. Repeat pending. - Potassium wnl (2) Hypertension: Plan: Hypertension Continue clonidine, metoprolol (3) Acute dehydration: Plan DVT prophylaxis: Defer Lovenox in the setting of YASSINE/unclear renal baseline. Heparin Disposition: Medical/telemetry Diet: Regular, nutrition consult placed to maximize calories Full code, discussed with patient. See goals of care above Admission and Anticipated Discharge Date Admission Date: July 13, 2022 Subjective patient seen and examined, still has some left hip pain, but much improved according to him Review of Systems Review of Systems: All systems reviewed are negative, apart from the ones contained in the history. Physical Exam Physical Exam: The patient is awake, alert and oriented 3, well developed and well nourished, normocephalic and atraumatic, lying in bed and in no acute distress. HEENT--PERRL, EOMI, mucous membranes and oropharynx mildly dry Neck--supple. No JVD. No bruits. Thyroid normal, trachea midline, no adenopathy. Heart--normal S1 and S2. No murmurs, rubs or gallops. Lungs--clear bilaterally, no respiratory distress, no accessory muscle use. Abdomen--normal bowel sounds and soft. Mild epigastric and left sided abdominal pain Extremities--no cyanosis or clubbing. No edema. Dermatologic--normal skin turgor, normal color, no abnormal lymph nodes, no rash. Neurologic--cranial nerves II through XII grossly intact. Rheumatologic--normal range of motion. Psychiatric--normal affect. Results & Data Results & Data ([facility]) Vital Signs (Past 12 Hours) Vital Signs Temp Pulse Resp BP Pulse Ox O2 Del Method 07/14/22 07:43 98.4 F 93 H 16 136/88 97 Room Air PG Care Time/CCT Total # of Minutes Spent Total Time Spent with Patient: Total time spent is greater than 50% in coordination of care (as documented) at patient's floor/unit and/or counseling patient: Coding Level of Care Code 60173 SUB INP/OBS CARE 2/35MIN Diagnoses Prostate cancer metastatic to bone C61; C79.51 Hypertension I10 Acute dehydration E86.0 Time Spent (min) 35
[2022-07-15] MEDS: HEPARIN 100 UNIT/ML 5ML FLUSH FLUSH PRN ×2 (05:32→05:42)
[2022-07-15] MEDS: HYDROmorphone INJ 0.5 MG/0.5 ML SYR IV PRN (05:40)
[2022-07-15 05:47] LABS: Hematocrit (blood only) 23.9 % (40.1-51.0); Hemoglobin 7.9 g/dl (14.0-18.0); Mean Corpuscular Hemoglobin 26.7 pg (25.0-34.0); Mean Corpuscular Hgb Conc 33.1 g/dL (32.0-36.0); Mean Corpuscular Volume 80.7 fL (80.0-100.0); Platelet Count 200 K/uL (130-400); RDW Coefficient of Variation 17.6 % (11.5-14.5); RDW Standard Deviation 52.2 fL (36.4-46.3); Red Blood Count 2.96 M/uL (4.63-6.08); White Blood Count 8.53 K/ul (4.8-10.8)
[2022-07-15 06:25] LABS: BUN Creatinine Ratio 17.4 (10-20); Calcium 7.7 mg/dl (8.5-10.1); Creatinine Clr Calc Pharmacy 25.4 ml/min; Est GFR (African American) 27.3 ml/min; Est GFR (Non-African American) 23.5 ml/min; Potassium 5.3 mmol/L (3.5-5.1)
[2022-07-15] MEDS: LIDOCAINE 5% 1 PATCH TD SCH (08:31)
[2022-07-15] MEDS: CHECK fentaNYL PATCH PLACEMENT SCH ×3 (08:31→23:35)
[2022-07-15] MEDS: SODIUM CHLORIDE 0.9% 1000ML 1,000 ML IV SCH ×2 (08:31→21:00)
[2022-07-15] MEDS: PANTOprazole 40 MG TAB PO SCH (08:33)
[2022-07-15] MEDS: predniSONE 5 MG TAB PO SCH ×2 (08:33→20:35)
[2022-07-15] MEDS: POLYETHYLENE (MIRALAX) 17 GM PACK PO SCH (08:33)
[2022-07-15] MEDS: cloNIDine HCL 0.1 MG TAB PO SCH ×3 (08:33→20:35)
[2022-07-15] MEDS: METOPROLOL SUCC 50MG EXT REL TAB PO SCH (08:33)
[2022-07-15] MEDS: CYCLOBENZAPRINE HCL 10 MG TAB PO SCH ×2 (08:33→20:35)
[2022-07-15] MEDS: HEPARIN SOD 5,000 UNIT/0.5 ML VIAL SQ SCH ×2 (08:33→20:35)
[2022-07-15] MEDS: MAGNESIUM OXIDE 400 MG TAB PO SCH ×2 (08:33→20:35)
--- NOTE | 2022-07-15 14:29 | Hospitalist Progress Note ---
Date of Service July 15, 2022 Assessment & Plan (1) Prostate cancer metastatic to bone: Plan: - Progressive despite multiple tx including enzalutamide, olaparib, Doxil Taxol, carbo as a Taxol. - Guarded prognosis, outpt referrals made to palliative care. Consulted while inpatient - Most severe pain suspect 2/2 bony metastasis at L buttock/hip Inadequate control with fentanyl 50 mcg every 3 days, oxycodone 20 mg every 4every 6. Increased to fent 75mcg patch and scaled hydromorphine. Pending radiation oncology evaluation/treatment was to have consult 07/17 - Rad/onc and pain management consulted - Continue multimodal pain control. 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 Can get to the bathroom at night but takes considerable effort and has had falls Palliative care referral placed 06/29/2022, has had difficulty getting with services - UA with trace leukocytes esterase, no overt bacteria, epithelial cells more consistent with contamination. No urinary symptoms. Follow culture. No leukocytosis. L Hip Pain -XR: 1. No acute fracture or dislocation within the pelvis or hips.2. Multifocal osteoblastic metastatic disease again noted. -Increased fentanyl patch from 50 up to 75, oral analgesia converted to IV, continue to follow. Palliative consulted, radiation oncology also consulted? If patient can receive palliative radiation while inpatient, was scheduled for this next week. We will hold Dex pending evaluation, continue baseline prednisone Chronic anemia MCV 81, hemoglobin 9.3 Trend H&H suspect 2/2 CKD with chronic cancer and poor nutritional status B12, folate, iron levels ordered YASSINE Patient previously with creatinine 1.22 prior to June 2022, has been 2.2 and 2.07 as outpatient in the setting of poor intake and chemo treatment Admitting creatinine 1.92 Unclear baseline, will trend and follow with fluids. Renally dose medications Elevated alk phos Likely 2/2 multiple bony mets, management of metastatic cancer as noted Hypomagnesemia Received repletion IV in er, +1g IV and then BID PO. Repeat pending. - Potassium wnl (2) Hypertension: Plan: Hypertension Continue clonidine, metoprolol (3) Acute dehydration: Plan DVT prophylaxis: Defer Lovenox in the setting of YASSINE/unclear renal baseline. Heparin Disposition: Medical/telemetry Diet: Regular, nutrition consult placed to maximize calories Full code, discussed with patient. See goals of care above Admission and Anticipated Discharge Date Admission Date: July 13, 2022 Subjective patient seen and examined, still has some left hip pain, but much improved according to him Review of Systems Review of Systems: All systems reviewed are negative, apart from the ones contained in the history. Physical Exam Physical Exam: The patient is awake, alert and oriented 3, well developed and well nourished, normocephalic and atraumatic, lying in bed and in no acute distress. HEENT--PERRL, EOMI, mucous membranes and oropharynx mildly dry Neck--supple. No JVD. No bruits. Thyroid normal, trachea midline, no adenopathy. Heart--normal S1 and S2. No murmurs, rubs or gallops. Lungs--clear bilaterally, no respiratory distress, no accessory muscle use. Abdomen--normal bowel sounds and soft. Mild epigastric and left sided abdominal pain Extremities--no cyanosis or clubbing. No edema. Dermatologic--normal skin turgor, normal color, no abnormal lymph nodes, no rash. Neurologic--cranial nerves II through XII grossly intact. Rheumatologic--normal range of motion. Psychiatric--normal affect. Results & Data Results & Data ([facility]) Vital Signs (Past 12 Hours) Vital Signs Temp Pulse Resp BP Pulse Ox O2 Del Method 07/15/22 07:52 98.2 F 88 16 136/90 97 Room Air PG Care Time/CCT Total # of Minutes Spent Total Time Spent with Patient: Total time spent is greater than 50% in coordination of care (as documented) at patient's floor/unit and/or counseling patient: Coding Diagnoses Prostate cancer metastatic to bone C61; C79.51 Hypertension I10 Acute dehydration E86.0
--- NOTE | 2022-07-15 14:31 | Hospitalist Progress Note ---
Date of Service July 15, 2022 Assessment & Plan (1) Prostate cancer metastatic to bone: Plan: - Progressive despite multiple tx including enzalutamide, olaparib, Doxil Taxol, carbo as a Taxol. - Guarded prognosis, outpt referrals made to palliative care. Consulted while inpatient - Most severe pain suspect 2/2 bony metastasis at L buttock/hip Inadequate control with fentanyl 50 mcg every 3 days, oxycodone 20 mg every 4every 6. Increased to fent 75mcg patch and scaled hydromorphine. Pending radiation oncology evaluation/treatment was to have consult 07/17 - Rad/onc and pain management consulted - Continue multimodal pain control. 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 Can get to the bathroom at night but takes considerable effort and has had falls Palliative care referral placed 06/29/2022, has had difficulty getting with services - UA with trace leukocytes esterase, no overt bacteria, epithelial cells more consistent with contamination. No urinary symptoms. Follow culture. No leukocytosis. L Hip Pain -XR: 1. No acute fracture or dislocation within the pelvis or hips.2. Multifocal osteoblastic metastatic disease again noted. -Increased fentanyl patch from 50 up to 75, oral analgesia converted to IV, continue to follow. Palliative consulted, radiation oncology also consulted? If patient can receive palliative radiation while inpatient, was scheduled for this next week. We will hold Dex pending evaluation, continue baseline prednisone -MRI has been done, official report pending Chronic anemia MCV 81, hemoglobin 7.9 Trend H&H suspect 2/2 CKD with chronic cancer and poor nutritional status B12, folate, iron levels ordered YASSINE Patient previously with creatinine 1.22 prior to June 2022, has been 2.2 and 2.07 as outpatient in the setting of poor intake and chemo treatment Admitting creatinine 1.92, some worsening, today Unclear baseline, will trend and follow with fluids. Renally dose medications -IV saline 80cc/hr Elevated alk phos Likely 2/2 multiple bony mets, management of metastatic cancer as noted Hypomagnesemia Received repletion IV in er, +1g IV and then BID PO. Repeat pending. - Potassium wnl (2) Hypertension: Plan: Hypertension Continue clonidine, metoprolol (3) Acute dehydration: Plan DVT prophylaxis: Defer Lovenox in the setting of YASSINE/unclear renal baseline. Heparin Disposition: Medical/telemetry Diet: Regular, nutrition consult placed to maximize calories Full code, discussed with patient. See goals of care above Admission and Anticipated Discharge Date Admission Date: July 13, 2022 Subjective patient seen and examined, still some hip pain Review of Systems Review of Systems: All systems reviewed are negative, apart from the ones contained in the history. Physical Exam Physical Exam: The patient is awake, alert and oriented 3, well developed and well nourished, normocephalic and atraumatic, lying in bed and in no acute distress. HEENT--PERRL, EOMI, mucous membranes and oropharynx mildly dry Neck--supple. No JVD. No bruits. Thyroid normal, trachea midline, no adenopathy. Heart--normal S1 and S2. No murmurs, rubs or gallops. Lungs--clear bilaterally, no respiratory distress, no accessory muscle use. Abdomen--normal bowel sounds and soft. Mild epigastric and left sided abdominal pain Extremities--no cyanosis or clubbing. No edema. Dermatologic--normal skin turgor, normal color, no abnormal lymph nodes, no rash. Neurologic--cranial nerves II through XII grossly intact. Rheumatologic--normal range of motion. Psychiatric--normal affect. Results & Data Results & Data ([facility]) Vital Signs (Past 12 Hours) Vital Signs Temp Pulse Resp BP Pulse Ox O2 Del Method 07/15/22 07:52 98.2 F 88 16 136/90 97 Room Air PG Care Time/CCT Total # of Minutes Spent Total Time Spent with Patient: Total time spent is greater than 50% in coordination of care (as documented) at patient's floor/unit and/or counseling patient: Coding Level of Care Code 53342 SUB INP/OBS CARE 2/35MIN Diagnoses Prostate cancer metastatic to bone C61; C79.51 Hypertension I10 Acute dehydration E86.0 Time Spent (min) 35
[2022-07-15] MEDS: HYDROmorphone INJ 1 MG/ML SYRINGE IV PRN (16:59)
--- NOTE | 2022-07-15 19:56 | Magnetic Resonance Report ---
LUMBAR SPINE MRI HISTORY: Low back pain with left hip pain TECHNIQUE: Multiplanar multisequence MRI of the lumbar spine was performed without the use of contras t. COMPARISON: Pelvis and left hip 07/13/2022. Abdomen and pelvis CT 05/21/2022. FINDINGS: For the purpose of the report the L5-S1 disc space will be located on axial image 27 of 30. Heterogeneous marrow signal consistent with diffuse metastatic disease. No fracture or subluxation. N o epidural or paraspinal tumor extension identified. There is moderate to severe bilateral hydronephr osis again noted. This has slightly progressed on the right. A single enlarged right retrocaval lymph node is again noted measuring 13 mm. The conus terminates at the L1-L2 disc space level. Mild body w all edema is noted. Disc spaces are preserved. L1-L2: No significant central canal or neural foraminal narrowing. L2-L3: No significant central canal or neural foraminal narrowing. L3-L4: No significant central canal or neural foraminal narrowing. L4-L5: No significant central canal or neural foraminal narrowing. L5-S1: No significant central canal or neural foraminal narrowing. IMPRESSION: 1. Diffuse osseous metastatic disease again noted. 2. Moderate to severe bilateral hydronephrosis again noted. This has slightly progressed on the right . 3. No disc herniations. No significant central canal or neural foraminal narrowing. 4. No acute fracture or subluxation. ACT 112: Negative or not required by law. Electronically signed by: Brayan Tran M.D. 07/15/2022 7:55 PM
[2022-07-16] MEDS: POLYETHYLENE (MIRALAX) 17 GM PACK PO SCH (09:16)
[2022-07-16] MEDS: CHECK fentaNYL PATCH PLACEMENT SCH ×3 (09:17→23:57)
[2022-07-16] MEDS: PANTOprazole 40 MG TAB PO SCH (09:17)
[2022-07-16] MEDS: CYCLOBENZAPRINE HCL 10 MG TAB PO SCH ×2 (09:17→20:20)
[2022-07-16] MEDS: cloNIDine HCL 0.1 MG TAB PO SCH ×3 (09:17→20:20)
[2022-07-16] MEDS: predniSONE 5 MG TAB PO SCH ×2 (09:17→20:19)
[2022-07-16] MEDS: LIDOCAINE 5% 1 PATCH TD SCH (09:18)
[2022-07-16] MEDS: METOPROLOL SUCC 50MG EXT REL TAB PO SCH (09:18)
[2022-07-16] MEDS: HEPARIN SOD 5,000 UNIT/0.5 ML VIAL SQ SCH ×2 (09:18→20:20)
[2022-07-16] MEDS: MAGNESIUM OXIDE 400 MG TAB PO SCH ×2 (09:18→20:20)
[2022-07-16] MEDS: SODIUM CHLORIDE 0.9% 1000ML 1,000 ML IV SCH ×2 (09:18→23:55)
[2022-07-16 10:01] LABS: BUN Creatinine Ratio 14.9 (10-20); Creatinine Clr Calc Pharmacy 18.7 ml/min; Est GFR (African American) 18.7 ml/min; Est GFR (Non-African American) 16.2 ml/min; Potassium 5.3 mmol/L (3.5-5.1)
--- NOTE | 2022-07-16 10:50 | Urology Consultation ---
Date of Consultation July 16, 2022 Assessment & Plan (1) Prostate cancer metastatic to bone: (2) YASSINE (acute kidney injury): (3) Hydronephrosis: Plan 61yo/M with a hx of prostate cancer with liver and bone metastasis admitted with severe left hip pain. Patient with prostate cancer with liver and bone metastasis. Has progressed through multiple lines of treatment. Urology consulted for moderatesevere hydronephrosis. Lumbar spine MRI 07/15/2021 showing moderate to severe bilateral hydronephrosis again noted, which has slightly progressed on the right compared to prior imaging. Also with worsening creatinine. He is afebrile and hemodynamically stable. Creatinine up to 3.83 today. Continue to trend Voiding spontaneously, continue to monitor. Bladder scan prn. Given his moderate-severe bilateral hydronephrosis and worsening YASSINE, will plan to proceed to the OR today for cystoscopy, bilateral retrograde pyelogram, ureteral stent placement with Dr. Bar. Risks and benefits reviewed with patient by Dr. Bar. OR notified. COVID test negative. Will cover with IV Ceftriaxone. Patient agreeable to plan, all questions were answered. Urology will follow. See attending note for further details. Attending note: Independently evaluated, interviewed, assessed, and examined. Extensively reviewed patient findings on imaging. Patient has metastatic prostate cancer with severe disease after multiple interventions. Patient had previously followed with a [facility] at [place]. Patient has been dealing with worsening issues with pain and discomfort. Has been found to have significant increase in lower urinary tract symptoms decreasing urine output and significant elevation of creatinine. Creatinine is now 3.83. Had been around 1.1 less than a few months ago. Vitals are currently stable. Patient not having major infectious issues. Did extensively review possible obstructions from external compression from scarring or mass. Discussed other possible obstructive issues. Discussed different options. Patient is not having considerable retention but may end up needing catheterization. Patient complex medical and surgical history reviewed and summarized above. All imaging was reviewed interpreted by myself. Labs were all reviewed and assessed. Risks and benefits discussed at length for procedure. These include bleeding, infection, injury to surrounding tissues or organs, and risks associated with anesthesia. Patient states understanding and agrees to proceed. Will sign consent and schedule. We will plan to proceed with cystoscopy and bilateral stent placement History of Present Illness Reason for Consultation: Metastatic prostate cancer,mod-severe hydronephrosis Attending Physician: Lesia Osorio MD History of Present Illness 61-year-old male who has a history of metastatic prostate cancer who presented with severe left hip pain admitted to the hospital service for pain management. Patient with prostate cancer with liver and bone metastasis. Has progressed through multiple lines of treatment. Urology consulted for moderate- severe hydronephrosis. Lumbar spine MRI 07/15/2021 showing moderate to severe bilateral hydronephrosis again noted. This has slightly progressed on the right. CT abdomen pelvis from 05/21/2022 also reviewed and noted left-sided hydronephrosis, increased from prior exam, without evidence of obstructive stone. Follows with cancer care center. Previously followed with a urologist in [place]- Dr. Banks. Per [facility] last note from 06/2022- Dramatic progression on multiple treatment options including enzalutamide, olaparib, docetaxel,cabazitaxel. Patient with significant bone pain 2/2 metastasis Zometa held due to worsening renal function ADT with leuprolide injections continued at [facility] Patient follows with Dr. Waters Referral previously placed to [facility] for palliative radiation therapy of left hip metastasis, pending consult 07/17 Outpatient referral made to palliative care. Patient examined at bedside this AM with Dr. Bar. Awake, resting in bed on arrival. No acute distress. Still with left hip pain. Denies significant flank or back pain. Denies suprapubic pain. No fevers. Voiding spontaneously in urinal. Denies hematuria or dysuria. Feels he is emptying his bladder well. Bladder scan at bedside for 0ml. Had breakfast around 830 this morning. Family history noncontributory. Allergies Allergy/AdvReac Type Severity Reaction Status Date / Time No Known Allergies Allergy Verified 07/13/22 15:19 Home Medications Medication Instructions Recorded Confirmed Type clonidine HCl 0.1 mg tablet 0.1 mg PO TID 12/12/21 07/13/22 History cyclobenzaprine 10 mg tablet 10 mg PO BID 12/12/21 07/13/22 History diphenoxylate-atropine 2.5 1 tab PO Q6H PRN diarrhea #14 tabs 12/12/21 07/13/22 Rx mg-0.025 mg tablet (Lomotil) metoprolol succinate 50 mg 50 mg PO DAILY 12/12/21 07/13/22 History tablet,extended release 24 hr ondansetron HCl 8 mg tablet 8 mg PO Q6 PRN Nausea 12/12/21 07/13/22 History prednisone 5 mg tablet 5 mg PO BID 12/12/21 07/13/22 History Patient History Medical History Acute dehydration Advanced care planning/counseling discussion YASSINE (acute kidney injury) Cancer related pain Hydronephrosis Hypertension Palliative care encounter Prostate cancer metastatic to bone Social History Smoking Status: Never smoker Second Hand Exposure: No; Hx Alcohol Use: No Hx Substance Use: Yes Substance Use Type Other:: medical Preferred Language: Albanian Communication Ability: Effective Cheese Maker Required: No Beliefs That Will Affect Care: None marital status: Single Current Living Situation: Alone Feels Safe at Home: Yes Assistive Devices: Cane, Walker and Wheelchair Review of Systems Review of Systems: All systems reviewed & are unremarkable except as noted in HPI & below Physical Exam Constitutional: + ill appearing and + frail appearing; no acute distress Eyes: PERRL, conjunctivae normal, anicteric sclerae ENMT: external ear and nose normal, oropharynx normal Neck: normal visual inspection Respiratory: no respiratory distress and no labored breathing Gastrointestinal (Abdomen): Percussion/Palpation: abdomen soft; abdomen nontender Musculoskeletal: Head/Neck/Chest: normocephalic Skin: No visible rashes or lesions Neurologic: awake Psychiatric: Orientation: alert, oriented x 3 and cooperative Genitourinary: no CVA tenderness Results & Data ([facility]) Vital Signs (Past 12 Hours) Vital Signs Temp Pulse Resp BP Pulse Ox O2 Del Method 07/16/22 08:06 36.8 C 74 13 116/78 96 Room Air PG Care Time/CCT Total # of Minutes Spent Total Time Spent with Patient: Total time spent is greater than 50% in coordination of care (as documented) at patient's floor/unit and/or counseling patient: Coding Level of Care Code INP/OBS CONSULT LVL 4, 60 MIN Diagnoses Prostate cancer metastatic to bone C61; C79.51 YASSINE (acute kidney injury) N17.9 Hydronephrosis N13.30
[2022-07-16] MEDS ORDERED: cefTRIAXone SODIUM 1,000 MG in DEXTROSE 5% AD-VAN 50 ML IV ONE (12:00)
--- NOTE | 2022-07-16 13:53 | Anesthesiology Consultation ---
Date of Service July 16, 2022 Assessment & Plan (1) Encounter for pre-operative examination: Chart Review Chart Review: Acceptable Risk for Surgery and Patient NOT seen in Pre Admission Testing Will order preop ECG (if one not done this admission) given slightly elevated potassium. Consults Requested none History Surgery Operation Date: 07/16/22 13:15 Proposed Procedures p Cystoscopy, Bilateral Retrograde Pyelogram, Bilateral Stent Placement - Laron Bar, DO Height/Weight Height: 5 ft 9 in Weight: 63.503 kg Allergies Allergy/AdvReac Type Severity Reaction Status Date / Time No Known Allergies Allergy Verified 07/13/22 15:19 Medications Home Medications Medication Instructions Recorded Confirmed Last Taken clonidine HCl 0.1 mg tablet 0.1 mg PO TID 12/12/21 07/13/22 07/12/22 cyclobenzaprine 10 mg tablet 10 mg PO BID 12/12/21 07/13/22 07/12/22 diphenoxylate-atropine 2.5 1 tab PO Q6H PRN diarrhea #14 tabs 12/12/21 07/13/22 Unknown mg-0.025 mg tablet (Lomotil) metoprolol succinate 50 mg 50 mg PO DAILY 12/12/21 07/13/22 07/12/22 tablet,extended release 24 hr ondansetron HCl 8 mg tablet 8 mg PO Q6 PRN Nausea 12/12/21 07/13/22 Unknown prednisone 5 mg tablet 5 mg PO BID 12/12/21 07/13/22 07/12/22 Active Medications Generic Name Dose Route Start Last Admin Trade Name Freq PRN Reason Stop Dose Admin Clonidine HCl 0.1 mg 07/13/22 21:00 07/16/22 13:38 Clonidine Hcl 0.1 Mg Tab PO 08/12/22 20:59 0.1 mg TID LINDY Administration Cyclobenzaprine HCl 10 mg 07/13/22 21:00 07/16/22 09:17 Cyclobenzaprine Hcl 10 Mg Tab PO 08/12/22 20:59 10 mg BID LINDY Administration Fentanyl 75 mcg 07/16/22 14:00 07/16/22 13:40 Fentanyl 75 Mcg/Hr Tdsy TD 07/30/22 13:59 75 mcg Q3D LINDY Administration Heparin Sodium (Porcine) 5,000 units 07/13/22 21:00 07/16/22 09:18 Heparin Sod 5,000 Unit/0.5 Ml Vial SQ 08/12/22 20:59 5,000 units Q12 LINDY Administration Heparin Sodium (Porcine) 5 ml 07/14/22 00:36 07/15/22 05:42 Heparin 100 Unit/Ml 5ml Flush FLUSH 08/13/22 00:35 5 ml PRN PRN Administration Flush Hydromorphone HCl 0.5 mg 07/13/22 16:09 07/15/22 05:40 Hydromorphone Inj 0.5 Mg/0.5 Ml Syr IV 07/27/22 16:08 0.5 mg Q3H PRN Administration Moderate Pain (4,5,6) on NRS Hydromorphone HCl 1 mg 07/13/22 16:09 07/15/22 16:59 Hydromorphone Inj 1 Mg/Ml Syringe IV 07/27/22 16:08 1 mg Q3H PRN Administration Severe Pain (7,8,9,10) on NRS Sodium Chloride 1,000 mls @ 80 mls/hr 07/15/22 08:15 07/16/22 09:18 Nss 1000ml IV 08/14/22 08:14 80 mls/hr .[id number] LINDY Administration Lidocaine 1 patch 07/13/22 16:30 07/16/22 09:18 Lidocaine 5% 1 Patch TD 08/12/22 16:29 1 patch QAM LINDY Administration Magnesium Oxide 400 mg 07/13/22 21:00 07/16/22 09:18 Magnesium Oxide 400 Mg Tab PO 08/12/22 20:59 400 mg BID LINDY Administration Metoprolol Succinate 50 mg 07/14/22 09:00 07/16/22 09:18 Metoprolol Succ 50mg Ext Rel Tab PO 08/13/22 08:59 50 mg DAILY LINDY Administration Miscellaneous 1 each 07/13/22 16:09 07/16/22 09:17 Check Fentanyl Patch Placement N/A 08/12/22 16:08 1 each QS LINDY Administration Miscellaneous 1 each 07/13/22 21:00 07/15/22 21:03 Remove Lidoderm Patch N/A 08/12/22 20:59 1 each DAILY@2100 LINDY Administration Miscellaneous 1 each 07/16/22 14:00 07/16/22 13:40 Fentanyl Patch Remove & Waste N/A 08/15/22 13:59 1 each Q3D LINDY Administration Pantoprazole Sodium 40 mg 07/14/22 09:00 07/16/22 09:17 Pantoprazole 40 Mg Tab PO 08/13/22 08:59 40 mg DAILY LINDY Administration Polyethylene Glycol 17 gm 07/14/22 11:30 07/16/22 09:16 Polyethylene (Miralax) 17 Gm Pack PO 08/13/22 11:29 17 gm DAILY LINDY Administration Prednisone 5 mg 07/13/22 21:00 07/16/22 09:17 Prednisone 5 Mg Tab PO 08/12/22 20:59 5 mg BID LINDY Administration Past Medical History Medical History (Updated 07/16/22 @ 13:52 by Jarad Rodrigues MD) Acute dehydration YASSINE (acute kidney injury) Hydronephrosis Hypertension Prostate cancer metastatic to bone Prostate cancer metastatic to bone: Progressive despite multiple tx including enzalutamide, olaparib, Doxil Taxol, carbo as a Taxol. - Guarded prognosis, outpt referrals made to palliative care. Consulted while inpatient - Most severe pain suspect 2/2 bony metastasis at L buttock/hip Inadequate control with fentanyl 50 mcg every 3 days, oxycodone 20 mg every 4every 6. Increased to fent 75mcg patch and scaled hydromorphine. Chronic anemia Social History Smoking Status: Never smoker tobacco type: smokeless tobacco Hx Alcohol Use: No Hx Substance Use: Yes substance use type: marijuana Substance Use Type Other:: medical Physical Exam Vital Signs Last Vital Signs Temp 36.6 C 07/16/22 11:43 Pulse 75 07/16/22 11:43 Resp 20 07/16/22 11:43 BP 110/66 07/16/22 11:43 Pulse Ox 96 07/16/22 11:43 O2 Del Method 07/16/22 11:43 Testing Laboratory Results 07/15/22 05:35 07/16/22 09:01 Urine Color Yellow 07/13/22 12:18 Urine Appearance Cloudy (Clear) A 07/13/22 12:18 Urine pH 5.0 (4.5-7.5) 07/13/22 12:18 Ur Specific [place] 1.012 (1.000-1.030) 07/13/22 12:18 Urine Protein 1+ (Negative) H 07/13/22 12:18 Urine Glucose (UA) Negative (Negative) 07/13/22 12:18 Urine Ketones 1+ (Negative) H 07/13/22 12:18 Urine Nitrite Negative (Negative) 07/13/22 12:18 Ur Leukocyte Esterase Trace (Negative) H 07/13/22 12:18 Urine WBC (Auto) 10-30 /hpf (0-5) H 07/13/22 12:18 Urine RBC (Auto) 0-4 /hpf (0-4) 07/13/22 12:18 U Hyaline Cast (Auto) 0 /lpf (0-5) 07/13/22 12:18 U Epithel Cells (Auto) >30 /lpf (0-5) H 07/13/22 12:18 Urine Bacteria (Auto) Negative (Negative) 07/13/22 12:18 07/13/22 12:18 Urine Culture - Final Urine,Clean Catch No growth - less than 1,000 colonies/mL. Electrocardiogram Date: 04/03/22 DICTATED BY:Bandar Naylor MD Test Reason : Blood Pressure : / mmHG Vent. Rate : 097 BPM Atrial Rate : 097 BPM P-R Int : 144 ms QRS Dur : 058 ms QT Int : 328 ms P-R-T Axes : 000 031 037 degrees QTc Int : 416 ms Normal sinus rhythm Normal ECG When compared with ECG of 11-DEC-2021 22:17, Premature ventricular complexes are no longer Present Confirmed by Bandar Naylor ([id number]) on 04/04/2022 6:08:50 AM
[2022-07-16] MEDS ORDERED: fentaNYL 75 MCG/HR TDSY TD SCH (14:00)
--- NOTE | 2022-07-16 14:36 | Electrocardiogram Report ---
Test Reason : Blood Pressure : / mmHG Vent. Rate : 079 BPM Atrial Rate : 079 BPM P-R Int : 170 ms QRS Dur : 060 ms QT Int : 350 ms P-R-T Axes : 038 028 040 degrees QTc Int : 401 ms Normal sinus rhythm Normal ECG When compared with ECG of 03-APR-2022 10:59, No significant change was found Confirmed by Jose Juan Arredondo ([id number]) on 07/16/2022 2:35:41 PM Referred By: REFERRED SELF Confirmed By:Jose Juan Arredondo
--- NOTE | 2022-07-16 15:19 | Palliative Care Consultation ---
Date of Consultation July 16, 2022 Assessment & Plan (1) Palliative care encounter: Met with pt/family. Provided overview of Palliative Medicine, a subspecialty that provides specialized medical care for people living with a serious illness by offering a focus on quality of life. Palliative Medicine is often conflated with hospice: I advised patient/family that Palliative and hospice can be partners but we are not the same. It is important to understand the difference so that we may be informed, and not afraid. Palliative Medicine works to improve QOL through reduction of symptom burden/more control over their illness, for both the patient and family. Palliative medicine clinicians are board certified, specially-trained and another member of the patient's medical care team. We often provide an extra layer of support because our care is based on the needs of the patient, not the prognosis; as such, it's appropriate at any age/advancing stage of a serious illness and can be provided along with curative treatment. Palliative Medicine clinicians are also trained in advanced communication methodologies, to facilitate complex discussions about advanced illness planning, which are needed to help assure that the treatment choices match the patient's goals, aka delivering Goal Concordant care. Finally, we discussed that hospice is a visiting nurse service that focuses on care delivered at the very end of life for patients with terminal illness, with life expectancy less than 6 month. (2) Cancer related pain: Transdermal fentanyl dose adjusted to 75 mcg. (3) Advanced care planning/counseling discussion: Care management notes reviewed. Patient sister has expressed concern that he is not safe at home and although approved for 12 hours of caregiver support, these caregivers are not reliable and do not show up. In the week leading up to this current admission, patient's caregivers did not show up at all. He was alone in his home and required help as could be provided intermittently from friends and neighbors. There is no consistency to their availability and they are not able to firmly commit to providing steady [id number] support. Even if patient is approved for more hours per day of caregiver support, the likelihood that they will be reliable and accountable is minimal to likely abysmal given their track record to date. Unfortunately patient does not have any additional caregiver support from family and will likely need placement in order to assure that he is safe and has access to the technical support of additional medical staff as well as ongoing pain management assistance. (4) Prostate cancer metastatic to bone: Patient has had continued disease progression across multiple lines of treatment. Recent oncology notes indicate that it may be time for patient to transition focus to be more about supportive care and quality of life. We will begin undertaking these discussions with him over the next few days. The purpose of today's initial visit was to introduce palliative medicine, the services we offer and to begin by modifying his pain management. Brendan Lacey was using 120 mg of oral oxycodone in addition to 50 mcg of transdermal fentanyl per day for his very severe and refractory cancer-related pain. The 120 mg of oral oxycodone is equivalent to 240 oral morphine equivalents which is approximately 80 mg of IV morphine equivalents which is equivalent to 75 mcg of transdermal fentanyl. He is currently on 50 mcg. This is his baseline dose and he is using the equivalent of an additional 75 mcg of transdermal fentanyl and as needed medication dosing with the oxycodone. In my discussion with patient, we reviewed the options for pain control. He is not able to effectively navigate or mobilize himself around the room. He is also not able to comfortably change positions or tolerate supine positioning while in bed. He is interested in improving his pain management. Currently he is only "okay" if he does not move. I have increased transdermal fentanyl to 75 mcg I will continue current IV Dilaudid 0.5 and 1 mg every 3 hours as needed for breakthrough pain dosing. This can also be given prior to any procedures or on- call to radiation oncology. It is noted that patient lives alone and is beginning to experience further progression of his disease with increasing weakness and decline. And care ma nagement conversation with his sister, it is noted that although patient qualifies for 12 hours a day of private caregivers, in the week leading up to his admission, none of his caregiver showed up. They then had to rely on help from his neighbors and a few friends but this was not consistent or on a steady basis. His sister does not feel he is safe to go home. There is no family that is able to reside with patient in an ongoing [id number] manner. Patient will likely need some assistance with placement. This will be coordinated through care management. I will continue to follow this patient for ongoing severe cancer-related pain management as well as initiating further discussions for disposition planning especially with the likelihood of needing to transition to a intermediate facility. I have updated the primary team and care management. Radha William DNP Clinical Director, Palliative Medicine History of Present Illness Reason for Consultation: Mets prostate cancer, pain Attending Physician: Lesia Osorio MD History of Present Illness Patient admitted to the hospital 07/13/2022 from [facility] with 10/10 intractable cancer pain, pending radiation oncology consultation. He was diagnosed with prostate cancer April 2018 with retroperitoneal adenopathy discovered May 2018. The bone scan June 2018 indicated metastatic disease in the posterior ribs, T11, mid thoracic vertebrae. He was then started on ADT with Lupron and had a persistently elevated PSA which ultimately led to starting enzalutamide and Zometa. By May 2020 his PSA continued to rise and a CAT scan revealed progression of bony metastatic disease. Based on tumor markers he was then switched to Lynparza in May 2020 which continued through April 2021 PSA again increased. Additional imaging at that time revealed an increasing number of metastatic disease focus in the thoracic and lumbar spine. He was thus started on docetaxel which was very poorly tolerated. Therapy was ultimately suspended. His CAT scan done September 2021 revealed multifocal osteoblastic skeletal metastatic disease without pulmonary disease. His bone scan in December 2021 showed some mild improvement in the bony signal and 2 pulmonary nodules on the right side. His PSA continued to rise through the summer 2021. Cycle 10 of docetaxel was completed by February. Cabazitaxel was initiated in March through May of 2022 at which time his CAT scan continue to show progressive disease, enhancing liver lesions and a new left external iliac lymph node with progression. Cabazitaxel was discontinued at that time. Liver metastatic disease biopsy done 06/22/2022 revealed adenocarcinoma consistent with metastatic adenocarcinoma of prostate origin. At this time, cabazitaxel was discontinued due to progression. He was set up for a liver lesion biopsy in hopes of sending it out for further Caris testing. Unfortunately, the biopsy sample was too small for processing via [facility]. A guardian 360 has been ordered instead per recent oncology notes of 07/04/2022. At the time of that clinic visit in oncology, it was noted that a referral to outpatient palliative care would be requested because it was felt it would "be in his best interest to be under their care moving forward for pain management and likely eventual transition to hospice. He will likely need a "bridge" type of program soon." Referral to radiation oncology was also ordered for evaluation of palliative radiation therapy to the left hip at the known areas of bone metastatic disease. Patient is seen at bedside, there is no family present. He is resting on his side. He states that he has had a generalized weakness with progressing pain especially in his back and his lower extremities left leg more than right leg. He describes the pain on the left is very severe, electric and at times stabbing with radiation down into his buttocks and thighs. Seems to stop around the knee and he denies any evidence of foot drop. He has some loss of sensation from his thigh to his ankle on the left but sensation is intact on the right. Occasionally has some hot flashes which has been consistent since his diagnosis of prostate cancer. At home he was using transdermal fentanyl 50 mcg along with oxycodone 20 mg by mouth as needed every 4 hours for breakthrough pain. He averages 6 doses of oxycodone every day for a total of 120 mg overall oxycodone along with his baseline transdermal fentanyl 50 mcg/h patch. His pain remains refractory and very severe at a 10 out of 10. Allergies Allergy/AdvReac Type Severity Reaction Status Date / Time No Known Allergies Allergy Verified 07/13/22 15:19 Home Medications Medication Instructions Recorded Confirmed Type clonidine HCl 0.1 mg tablet 0.1 mg PO TID 12/12/21 07/13/22 History cyclobenzaprine 10 mg tablet 10 mg PO BID 12/12/21 07/13/22 History diphenoxylate-atropine 2.5 1 tab PO Q6H PRN diarrhea #14 tabs 12/12/21 07/13/22 Rx mg-0.025 mg tablet (Lomotil) metoprolol succinate 50 mg 50 mg PO DAILY 12/12/21 07/13/22 History tablet,extended release 24 hr ondansetron HCl 8 mg tablet 8 mg PO Q6 PRN Nausea 12/12/21 07/13/22 History prednisone 5 mg tablet 5 mg PO BID 12/12/21 07/13/22 History Patient History Medical History (Updated 07/16/22 @ 15:50 by Radha William DNP) Acute dehydration Advanced care planning/counseling discussion YASSINE (acute kidney injury) Cancer related pain Hydronephrosis Hypertension Palliative care encounter Prostate cancer metastatic to bone Social History Smoking Status: Never smoker Second Hand Exposure: No; Hx Alcohol Use: No Hx Substance Use: Yes Substance Use Type Other:: medical Preferred Language: Danish Communication Ability: Effective It Service Delivery Manager Required: No Beliefs That Will Affect Care: None marital status: Single Current Living Situation: Alone Other Information That Helps Us Care for You: No Feels Safe at Home: Yes Safety Concerns: Feels Safe At This Time Assistive Devices: Cane, Walker and Wheelchair Review of Systems Review of Systems: All systems reviewed & are unremarkable except as noted in Subjective Physical Exam Physical Exam: Chronically ill-appearing gentleman, lying in bed on his right side. He reports a significant generalized pain that is improved since admission but is still limiting his ability to care for his own needs. He is not able to sit up in bed or ambulate across the room without severe pain. Respirations are even with no increased effort noted. Heart tones are normal. Abdomen is soft and nontender. He has significant tenderness along his spine and he describes a radiating pain into his lower extremities left more than right. Overall strength is diminished in a generalized manner. He is awake alert and oriented x3. He is able to follow commands. His mood is subdued but he is pleasant and cooperative with this examiner. His skin color is pale, cool to touch. There is no cyanosis or clubbing noted. Results & Data ([place]) Vital Signs (Past 12 Hours) Vital Signs Temp Pulse Resp BP BP Pulse Ox O2 Del Method 07/16/22 14:57 37 C 72 18 115/76 97 Room Air 07/16/22 11:43 36.6 C 75 20 110/66 96 Room Air 07/16/22 08:06 36.8 C 74 13 116/78 96 Room Air Laboratory Results Data reviewed Diagnostic Findings Data reviewed PG Care Time/CCT Total # of Minutes Spent Total Time Spent: 60 Total Time Spent with Patient: Total time spent is greater than 50% in coordination of care (as documented) at patient's floor/unit and/or counseling patient: Coding Level of Care Code New Pt INP/OBS CONSULT LVL 5, 80 MIN Patient Type New History Comprehensive Exam Detailed Medical Decision Making High Complexity Diagnoses Palliative care encounter Z51.5 Cancer related pain G89.3 Advanced care planning/counseling discussion Z71.89 Prostate cancer metastatic to bone C61; C79.51
--- NOTE | 2022-07-16 15:43 | Hospitalist Progress Note ---
Date of Service July 16, 2022 Assessment & Plan (1) Prostate cancer metastatic to bone: Plan: (1) Prostate cancer metastatic to bone: Plan: - Progressive despite multiple tx including enzalutamide, olaparib, Doxil Taxol, carbo as a Taxol. - Guarded prognosis, outpt referrals made to palliative care. Consulted while inpatient - Most severe pain suspect 2/2 bony metastasis at L buttock/hip Inadequate control with fentanyl 50 mcg every 3 days, oxycodone 20 mg every 4every 6. Increased to fent 75mcg patch and scaled hydromorphine. - Rad/onc and pain management consulted - Continue multimodal pain control. Tylenol [dose reduced], fentanyl patch, and scaled breakthrough morphine - Narcan PRN for respiratory suppression/narcosis -Palliative on board (2) Acute pain of left hip: Plan: L Hip Pain -XR: 1. No acute fracture or dislocation within the pelvis or hips.2. Multifocal osteoblastic metastatic disease again noted. -Increased fentanyl patch from 50 up to 75, oral analgesia converted to IV, continue to follow. Palliative consulted, radiation oncology also consulted? If patient can receive palliative radiation while inpatient, was scheduled for this next week. We will hold Dex pending evaluation, continue baseline prednisone -MRI has been done, no evidence of spinal stenosis but Diffuse osseous metastatic disease again noted. -Palliative on board for pain mgt (3) Hypertension: Plan: Continue clonidine, metoprolol BP under good control (4) Hydronephrosis: Plan: Found to have moderate-severe hydronephrosis on MRI Urology consulted Plan for Cystoscopy and stent placement today (5) YASSINE (acute kidney injury): Plan: Worsening renal function, likely due to obstructive uropathy MRI shows evidence of hydronephrosis Urology on consult, plan for cystoscopy and stent placement Plan Plan DVT prophylaxis: Defer Lovenox in the setting of YASSINE/unclear renal baseline. Heparin Disposition: Medical/telemetry Diet: Regular, nutrition consult placed to maximize calories Full code, discussed with patient. See goals of care above Patient will need placement after hospital stay. Declining functional capacity, he lives alone Admission and Anticipated Discharge Date Admission Date: July 13, 2022 Subjective patient seen and examined, still with some hip pain Review of Systems Review of Systems: All systems reviewed are negative, apart from the ones contained in the history. Physical Exam Physical Exam: The patient is awake, alert and oriented 3, well developed and well nourished, normocephalic and atraumatic, lying in bed and in no acute distress. HEENT--PERRL, EOMI, mucous membranes and oropharynx mildly dry Neck--supple. No JVD. No bruits. Thyroid normal, trachea midline, no adenopathy. Heart--normal S1 and S2. No murmurs, rubs or gallops. Lungs--clear bilaterally, no respiratory distress, no accessory muscle use. Abdomen--normal bowel sounds and soft. Mild epigastric and left sided abdominal pain Extremities--no cyanosis or clubbing. No edema. Dermatologic--normal skin turgor, normal color, no abnormal lymph nodes, no rash. Neurologic--cranial nerves II through XII grossly intact. Rheumatologic--normal range of motion. Psychiatric--normal affect. Results & Data Results & Data ([facility]) Vital Signs (Past 12 Hours) Vital Signs Temp Pulse Resp BP BP Pulse Ox O2 Del Method 07/16/22 14:57 98.6 F 72 18 115/76 97 Room Air 07/16/22 11:43 97.9 F 75 20 110/66 96 Room Air 07/16/22 08:06 98.2 F 74 13 116/78 96 Room Air PG Care Time/CCT Total # of Minutes Spent Total Time Spent with Patient: Total time spent is greater than 50% in coordination of care (as documented) at patient's floor/unit and/or counseling patient: Coding Level of Care Code 20974 SUB INP/OBS CARE 2/35MIN Diagnoses Prostate cancer metastatic to bone C61; C79.51 Acute pain of left hip M25.552 Hypertension I10 Hydronephrosis N13.30 YASSINE (acute kidney injury) N17.9 Time Spent (min) 35
[2022-07-16] MEDS ORDERED: HYDROmorphone INJ 2 MG/ML SYR/VIAL IV PRN (16:38)
[2022-07-16] MEDS ORDERED: ATROPINE SULFATE 0.1 MG/ML 10ML SYR IV PRN ×2 (16:38→17:37)
[2022-07-16] MEDS ORDERED: ePHEDrine sulfate 50 MG/ML AMP IV PRN ×2 (16:38→17:37)
[2022-07-16] MEDS ORDERED: fentaNYL citrate 100 MCG/2 ML VIAL IV PRN ×2 (16:38→17:37)
[2022-07-16] MEDS ORDERED: PROMETHAZINE HCL 12.5 MG in SODIUM CHLORIDE 0.9% 50 ML IV PRN (16:38)
[2022-07-16] MEDS ORDERED: ONDANSETRON INJ 2 MG/ML 2 ML VIAL IV PRN (16:38)
[2022-07-16] MEDS ORDERED: DIATRIZOATE MEGLUMINE 30% 100ML VIAL INSTIL ONE (17:13)
--- NOTE | 2022-07-16 17:17 | Operative Report ---
PG Post Operative Report Pre & Post Diagnosis Bilateral Hydronephrosis. Prostate Cancer with metastatic disease. Same Operation Date: 07/16/22 13:15 <No data on this case meets the specified criteria> I identified the patient and participated in the time-out.: Yes Procedure Cystoscopy with bilateral retrograde pyelograms and bilateral stent placement. Operation Date: 07/16/22 13:15 <No data on this case meets the specified criteria> Surgeon Laron Bar, II, DO Ballpoint Pen Assembly Machine Operator None Estimated Blood Loss 1 Findings Consistent with Post-Op Diagnosis Mass in base of bladder with displacement of ureter bilaterally. Mass appears to completely displace the left ureter but appears to involve/encase the distal right ureter at the UO. Stents placed in good position. Specimens None Drains 7 Fr x 24 Bilateral 22 Fr [place] Coude Anesthesia Type MAC Complications none Disposition Disposition: Recovery Room Indications Patient with obstruction with significant metastatic prostate cancer. Risks and benefits discussed at length. Description of Procedure Patient was consented and brought back to the operating room. Patient was placed under anesthesia in the supine position and moved to the dorsal lithotomy position. Patient was prepped and draped in the regular sterile fashion. A time out was completed. A 30degree Cystoscope was placed into the bladder and the entire bladder was examined. The UO's were identified. A mass was noted through the base of the bladder and appeared to have displaced the ureter. The right UO appeared to be involved with the right UO. The left UO appeared to be displaced laterally. The left UO was cannulized with a catheter and a retrograde pyelogram was completed. Significant Hydronephrosis and hydroureter. Ureter was tortuous without significant area of narrowing. Distal ureter did have a considerable hooking towards the bladder possibly due to displacement. A wire was then placed. With the wire in place, a 7 Fr Double J stent was placed. It was confirmed with fluoroscopy. The UO on the right was found to be involved with the mass along the bladder floor. This was cannulized with a catheter and a retrograde pyelogram was completed. Significant hydronephrosis and hydroureter was again discovered. A wire was then placed. With the wire in place, a 7 Fr Double J stent was placed. It was confirmed with fluoroscopy. With the stents in place, the bladder was emptied. The scope was removed. A 22 Fr Coude Catheter was then placed. The patient was cleaned, aroused from anesthesia, and transferred to the pacu in stable condition having tolerated the procedure well with no complications. I was present and participated in all aspects of the procedure. The patient will be monitored in the PACU until transferred. Plan to maintain catheter over night for maximization of drainage. Will likely be able to remove over next day or two. Will plan to maintain stents for drainage bilaterally. Will monitor renal function. Transfer back to floor and monitor. Likely outpatient followup in approx 1 month. I attest to the content of the Intraoperative Record and any orders documented therein. Any exceptions are noted below.
[2022-07-16] MEDS ORDERED: HYDROmorphone INJ 1 MG/ML SYRINGE IV PRN (17:37)
--- NOTE | 2022-07-16 18:21 | Anesthesiology Progress Note ---
Date of Service July 16, 2022 Anesthesia Post Procedure Vital Signs Vital Signs: Temp Pulse Pulse Resp BP BP Pulse Ox 07/16/22 17:45 90 15 107/75 97 07/16/22 17:35 88 14 118/81 96 07/16/22 17:25 85 17 107/75 100 07/16/22 17:19 36.6 C 83 12 97/66 L 100 07/16/22 16:14 36.9 C 79 20 125/77 96 07/16/22 14:57 37 C 72 18 115/76 97 07/16/22 11:43 36.6 C 75 20 110/66 96 07/16/22 08:06 36.8 C 74 13 116/78 96 07/15/22 22:32 36.7 C 81 16 105/68 95 07/15/22 20:34 88 115/79 07/15/22 18:36 36.7 C 85 16 116/79 97 O2 Del Method O2 Flow Rate 07/16/22 17:45 Room Air 07/16/22 17:35 Room Air 07/16/22 17:25 Oxymask 5 07/16/22 17:19 Oxymask 5 07/16/22 16:14 Room Air 07/16/22 14:57 Room Air 07/16/22 11:43 Room Air 07/16/22 08:06 Room Air 07/15/22 22:32 Room Air 07/15/22 20:34 07/15/22 18:36 Room Air Pain Intensity Left Hip: Pain Intensity: 2 Penis: Pain Intensity: 5 Transfer of Care Handoff Completed per policy Notes Mental Status: alert / awake / arousable and participated in evaluation Patient Amnestic to Procedure: Yes Nausea / Vomiting: adequately controlled Pain: adequately controlled Airway Patency, RR, SpO2: stable & adequate BP & HR: stable & adequate Hydration State: stable & adequate Anesthetic Complications: no major complications apparent
[2022-07-16] MEDS: HYDROmorphone INJ 1 MG/ML SYRINGE IV PRN (19:40)
--- NOTE | 2022-07-16 20:39 | Fluoroscopy Report ---
FL retrograde includes kub CLINICAL HISTORY: Bilateral retrograde and stent placement. COMPARISON STUDY: None. FLUOROSCOPY TIME: 55 seconds. FINDINGS: 3 fluoroscopic spot images of the abdomen and pelvis demonstrate retrograde opacification o f the bilateral renal collecting systems with bilateral ureteral stents. The ureteral stents appear a nd good position. IMPRESSION: Fluoroscopic assistance as described above. ACT 112: Negative or not required by law. Electronically signed by: Brayan Tran M.D. 07/16/2022 8:37 PM
[2022-07-16] MEDS ORDERED: Nursing to Pharmacy Communication SCH (20:45)
[2022-07-17] MEDS: HYDROmorphone INJ 1 MG/ML SYRINGE IV PRN ×2 (04:14→12:31)
--- NOTE | 2022-07-17 08:11 | Urology Progress Note ---
Date of Service July 17, 2022 Assessment & Plan (1) Prostate cancer metastatic to bone: (2) YASSINE (acute kidney injury): (3) Hydronephrosis: Plan 61yo/M with a hx of prostate cancer with liver and bone metastasis that has progressed through multiple lines of treatment admitted with severe left hip pain. Patient had previously followed with a [facility] at [place]. Patient has been dealing with worsening issues with pain and discomfort. Had been found to have significant increase in lower urinary tract symptoms, decreasing urine output, and significant elevation of creatinine. POD 1 s/p cystoscopy, bilateral retrograde pyelogram, bilateral ureteral stent placement. He is afebrile and hemodynamically stable. Creatinine down to 3.31 today ( 3.83 yesterday). Continue to trend. Tolerating the ureteral stents and Matamoros catheter with minimal bother. Urine is clear yellow. Continue to monitor. Plan to maintain Matamoros catheter for now, will likely be able to remove over next day or two. Will plan to maintain stents for drainage bilaterally and continue to monitor renal function. We will arrange outpatient follow-up with our service for continued care and stent management. Urology will follow peripherally. Admission and Anticipated Discharge Date Admission Date: July 13, 2022 Subjective Patient examined at bedside this AM. Awake, resting in bed on arrival. No acute distress. Tolerating the ureteral stents with minimal bother. Still notes left hip pain. Denies fevers or chills. Denies nausea or vomiting. Matamoros catheter intact, draining clear yellow urine. Urine output [id number]. Review of Systems Constitutional: as per Subjective / HPI Gastrointestinal: as per Subjective / HPI Genitourinary: + as per Subjective / HPI Physical Exam Constitutional: + ill appearing and + frail appearing; no acute distress Respiratory: no respiratory distress and no labored breathing Musculoskeletal: Head/Neck/Chest: normocephalic Skin: No visible rashes or lesions Neurologic: awake Psychiatric: Orientation: alert, oriented x 3 and cooperative Genitourinary: Matamoros catheter intact Results & Data ([facility]) Vital Signs (Past 12 Hours) Vital Signs Temp Pulse Pulse Resp BP BP Pulse Ox 07/17/22 07:13 36.9 C 96 H 18 101/66 97 07/17/22 03:25 36.6 C 83 16 105/71 96 07/16/22 21:54 36.5 C 84 18 93/67 L 97 07/16/22 20:15 36.7 C 82 18 97/65 L 97 O2 Del Method 07/17/22 07:13 Room Air 07/17/22 03:25 Room Air 07/16/22 21:54 Room Air 07/16/22 20:15 Room Air PG Care Time/CCT Total # of Minutes Spent Total Time Spent with Patient: Total time spent is greater than 50% in coordination of care (as documented) at patient's floor/unit and/or counseling patient: Coding Level of Care Code 34029 SUB INP/OBS CARE 2/35MIN Diagnoses Prostate cancer metastatic to bone C61; C79.51 YASSINE (acute kidney injury) N17.9 Hydronephrosis N13.30
[2022-07-17 08:47] LABS: Hematocrit (blood only) 24.4 % (40.1-51.0); Hemoglobin 7.9 g/dl (14.0-18.0); Mean Corpuscular Hemoglobin 26.4 pg (25.0-34.0); Mean Corpuscular Hgb Conc 32.4 g/dL (32.0-36.0); Mean Corpuscular Volume 81.6 fL (80.0-100.0); Mean Platelet Volume 8.7 fL (9.4-12.4); Nucleated RBC # (auto) 0.02 K/uL (0-0); Nucleated RBC % (auto) 0.2 %; Platelet Count 192 K/uL (130-400); RDW Coefficient of Variation 18.2 % (11.5-14.5); RDW Standard Deviation 53.9 fL (36.4-46.3); Red Blood Count 2.99 M/uL (4.63-6.08); White Blood Count 10.26 K/ul (4.8-10.8)
[2022-07-17] MEDS: CYCLOBENZAPRINE HCL 10 MG TAB PO SCH ×2 (08:58→20:05)
[2022-07-17] MEDS: LIDOCAINE 5% 1 PATCH TD SCH (08:58)
[2022-07-17] MEDS: CHECK fentaNYL PATCH PLACEMENT SCH ×3 (08:58→23:23)
[2022-07-17] MEDS: predniSONE 5 MG TAB PO SCH ×2 (08:59→20:05)
[2022-07-17] MEDS: HEPARIN SOD 5,000 UNIT/0.5 ML VIAL SQ SCH ×2 (08:59→20:05)
[2022-07-17] MEDS: cloNIDine HCL 0.1 MG TAB PO SCH ×3 (08:59→20:05)
[2022-07-17] MEDS: PANTOprazole 40 MG TAB PO SCH (09:00)
[2022-07-17] MEDS: MAGNESIUM OXIDE 400 MG TAB PO SCH ×2 (09:00→20:05)
[2022-07-17] MEDS: METOPROLOL SUCC 50MG EXT REL TAB PO SCH (09:00)
[2022-07-17] MEDS: POLYETHYLENE (MIRALAX) 17 GM PACK PO SCH (09:00)
--- NOTE | 2022-07-17 09:08 | Nephrology Consultation ---
Date of Consultation July 17, 2022 Assessment & Plan (1) YASSINE (acute kidney injury): * YASSINE due to bilateral ureteral obstruction * Cystoscopy w/ bilateral ureteral stent placement completed 07/16/22 * Now nonoliguric, Cr trending down * Mild hyponatremia, otherwise electrolyte balance is acceptable. Patient is e uvolemic to volume contracted. No indication for [facility] at this time * Monitor PRP, UO (2) Hypertension: * BP is currently well controlled. Continue Metoprolol therapy (3) Prostate cancer metastatic to bone: * Await further input from Oncology, Radiation Therapy and Palliative Care History of Present Illness Reason for Consultation: YASSINE Attending Physician: Lesia Osorio MD History of Present Illness Mr. Brennan s a 61 year old white male who is seen at the request of the hospitalist service for evaluation of YASSINE. Medical records in the EMR were reviewed today and are summarized as follows: Mr. Brennan has preserved kidney function w/ baseline Cr 1.2. His medical history is significant for HTN (Metoprolol) and prostate CA that is metastatic to bone. Mr. Brennan recently developed back and L hip pain. He had been requiring increasing doses of his narcotic analgesics. He was seen by his Oncologist 07/13/22 and referred to the hospital for pain management. EMD evaluation revealed Cr 2.07, lumbar spine MRI revealed severe bilateral hydronephrosis. Mr. Brennan was evaluated by Urology and underwent cystoscopy w/ bilateral stent placement 07/16/22. Cr has risen to 3.3 but patient is nonoliguric. He now reports that the back discomfort is less. He denies dyspnea or uremic symptoms. Allergies Allergy/AdvReac Type Severity Reaction Status Date / Time No Known Allergies Allergy Verified 07/13/22 15:19 Home Medications Medication Instructions Recorded Confirmed Type clonidine HCl 0.1 mg tablet 0.1 mg PO TID 12/12/21 07/13/22 History cyclobenzaprine 10 mg tablet 10 mg PO BID 12/12/21 07/13/22 History diphenoxylate-atropine 2.5 1 tab PO Q6H PRN diarrhea #14 tabs 12/12/21 07/13/22 Rx mg-0.025 mg tablet (Lomotil) metoprolol succinate 50 mg 50 mg PO DAILY 12/12/21 07/13/22 History tablet,extended release 24 hr ondansetron HCl 8 mg tablet 8 mg PO Q6 PRN Nausea 12/12/21 07/13/22 History prednisone 5 mg tablet 5 mg PO BID 12/12/21 07/13/22 History Patient History Medical History Acute dehydration Advanced care planning/counseling discussion YASSINE (acute kidney injury) Cancer related pain Hydronephrosis Hypertension Palliative care encounter Prostate cancer metastatic to bone Social History Smoking Status: Never smoker Second Hand Exposure: No; Hx Alcohol Use: No Hx Substance Use: Yes Substance Use Type Other:: medical Preferred Language: Czech Communication Ability: Effective Instructional Support Technician Required: No Beliefs That Will Affect Care: None marital status: Single Current Living Situation: Alone Feels Safe at Home: Yes Assistive Devices: Cane, Walker and Wheelchair Review of Systems Constitutional: no fever Eyes: no problem reported Ear, Nose, Mouth, Throat: no problem reported Respiratory: no dyspnea Cardiovascular: no chest pain Gastrointestinal: no abdominal pain, no vomiting and no diarrhea/loose stools Neurologic: no confusion Physical Exam Constitutional: + ill appearing; not in distress Eyes: PERRL, conjunctivae normal, anicteric sclerae ENMT: Mouth: + poor dentition Neck: trachea midline, no thyromegaly Respiratory: normal respiratory effort, lungs clear to auscultation Cardiovascular: Rate/Rhythm: regular rate and regular rhythm Gastrointestinal (Abdomen): normal bowel sounds, soft, nontender, no hepatosplenomegaly Neurologic: Speech / Cognition: normal speech and normal cognition Results & Data ([facility]) Vital Signs (Past 12 Hours) Vital Signs Temp Pulse Resp BP Pulse Ox O2 Del Method 07/17/22 09:02 104 H 117/80 97 Room Air 07/17/22 07:13 36.9 C 96 H 18 101/66 97 Room Air 07/17/22 03:25 36.6 C 83 16 105/71 96 Room Air 07/16/22 21:54 36.5 C 84 18 93/67 L 97 Room Air Laboratory Results Laboratory Tests 07/13/22 07/15/22 07/16/22 12:18 05:35 09:01 WBC 8.53 Hgb 7.9 L Hct 23.9 L Plt Count 200 Sodium 131 L Potassium 5.3 H Chloride 100 Carbon Dioxide 19 L BUN 57 H Creatinine 3.83 H D Est GFR (Non-Af Amer) 16.2 Calcium 8.0 L Urine Color Yellow Urine Appearance Cloudy A Ur Specific [place] 1.012 Urine Protein 1+ H Urine Blood Trace H Urine RBC (Auto) 0-4 07/17/22 08:24 WBC 10.26 Hgb 7.9 L Hct 24.4 L Plt Count 192 Sodium Potassium Chloride Carbon Dioxide BUN Creatinine Est GFR (Non-Af Amer) Calcium Urine Color Urine Appearance Ur Specific [place] Urine Protein Urine Blood Urine RBC (Auto) Diagnostic Findings Abdominal MRI 07/15/22: 1. Diffuse osseous metastatic disease again noted. 2. Moderate to severe bilateral hydronephrosis again noted. This has slightly progressed on the right. 3. No disc herniations. No significant central canal or neural foraminal narrowing. 4. No acute fracture or subluxation. Retrograde pyelogram 07/16/22: 3 fluoroscopic spot images of the abdomen and pelvis demonstrate retrograde opacification of the bilateral renal collecting systems with bilateral ureteral stents. The ureteral stents appear and good position. PG Care Time/CCT Total # of Minutes Spent Total Time Spent with Patient: Total time spent is greater than 50% in coordination of care (as documented) at patient's floor/unit and/or counseling patient: Coding Level of Care Code INP/OBS CONSULT LVL 5, 80 MIN Diagnoses YASSINE (acute kidney injury) N17.9 Hypertension I10 Prostate cancer metastatic to bone C61; C79.51
[2022-07-17 09:42] LABS: Calcium 7.6 mg/dl (8.5-10.1); Creatinine Clr Calc Pharmacy 21.6 ml/min; Est GFR (African American) 22.4 ml/min; Est GFR (Non-African American) 19.3 ml/min; Potassium 4.9 mmol/L (3.5-5.1)
--- NOTE | 2022-07-17 11:40 | Radiation OncologyConsultation ---
Date of Consultation July 17, 2022 Assessment & Plan (1) Prostate cancer metastatic to bone: Assessment: 61-year-old gentleman who presented with metastatic prostate cancer in 2018. He has been treated with systemic chemotherapy and ADT. He is now showing progression of disease with biopsy-proven liver metastatic disease and progressive bony metastatic disease. He was experiencing severe pain in the lower back and left pelvis. MRI, CT and bone scan showed evidence of diffuse pelvic disease. Treatment Options: 1. Systemic targeted therapy as recommended by Dr. Waters. 2. Palliative radiation to the sacrum and left hip. 3. Palliative care. Recommendations: I would recommend a course of palliative radiation to the pelvis and left hip targeting likely sites of metastatic bony pain. Plan: 1. Continued pain medication. 2. Targeted therapy if appropriate and recommended by Dr. Waters. 3. CT simulation for palliative radiation to the pelvis and left hip. 4. Continued ADT. Rationale/Explanation of Treatment: Mr. Brennan unfortunately is showing evidence of progressive disease including liver metastasis despite ongoing systemic therapy. He is being evaluated for potential targeted therapy. His scans showed evidence of progressive bony disease in the pelvis. Patient is experiencing severe lower back pain and left hip pain. Scan showed evidence of widespread diffuse metastatic disease. There is significant disease involving the left SI joint and left pelvis. This would be the site of palliation. I recommend we proceed with a CT simulation today and initiation of palliative radiation as soon as possible. If patient is discharged we will contact the patient and proceed with treatment as an outpatient as appropriate. History of Present Illness Reason for Consultation: Severe back pain Attending Physician: Lesia Osorio MD History of Present Illness Mr. Brennan is a 61-year-old male with a history of prostate cancer metastatic to bone. Patient has been treated with systemic therapy but recently developed severe lower back and left hip pain. April 2018. Patient presented with difficulty urinating and was found to have an abnormal prostate with presenting PSA of 697 and positive prostate biopsy consistent with prostatic carcinoma. 05/14/2018. Bilateral pelvic and retroperitoneal adenopathy suspicious for metastatic prostate cancer. 06/13/2018. Bone scan suspicious for metastatic disease in the posterior ribs, mid thoracic vertebrae and T11. Patient started on ADT with Lupron. 12/17/2018. PSA 7.6 response to initiation of ADT. July 2019. Patient's PSA increased and patient was seen by Dr. Overton (medical oncology) [place]. He was subsequently started on enzalutamide and Zometa. 05/20/2020. CT chest abdomen and pelvis showed progression of bony metastatic disease. 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 Patient was started on Lynparza. 05/24/2020. PSA again started to increase to 49.6. April 2021. Patient remained on Lynparza which was ultimately stopped. 05/23/2021. PSA increased 234. CT chest abdomen and pelvis showed increasing number of metastatic disease in his thoracic and lumbar spine with unchanged stable pulmonary nodules. 06/21/2021. Patient started on docetaxel 75 mg per metered squared. Cycle 1 was poorly tolerated. Patient ultimately resumed cycle 2 of docetaxel at [facility] with pretreatment PSA of 300. 09/12/2021. CT of the chest revealed multifocal blastic skeletal metastasis with no lymphadenopathy or evidence of pulmonary mets. 09/12/2021. CT abdomen and pelvis showed pelvic lymphadenopathy, bladder wall thickening and nonspecific sigmoid colon thickening. 09/12/2021. Bone scan revealed extensive osseous metastatic disease throughout the majority of the axial/appendicular skeleton. 12/21/2021. Bone scan showed mild improvement most pronounced in the ribs. 02/08/2022. Patient received cycle 10 of docetaxel which was discontinued. 03/08/2022. Patient initiated on cabazitaxel. 05/10/2022. Patient received cycle 4 of cabazitaxel. 05/21/2022. CT chest abdomen pelvis showed continued progression of disease with additional enhancing liver lesions as well as interval development of left external iliac lymph node and slightly progressed skeletal metastatic disease. Cabazitaxel was discontinued. 06/22/2022. Patient undergoes core biopsy of the liver. This confirmed adenocarcinoma consistent with metastatic adenocarcinoma of prostate origin. Immunohistochemical stain showed intact proteins staining and did not indicate microsatellite instability (MSI). Case #: [id number]. 07/13/2022. Patient was in the infusion center and was seen by Dr. Waters with a complaint of uncontrolled pain. He was given increasing pain medication with some improvement but was planned for admission for further evaluation and work- up. He recommended consideration of guardant 360 to indicate whether there might be a immune, PARP inhibitor, or other noncytotoxic options. Dr. Waters did not feel additional's systemic chemotherapy would be beneficial and recommended consideration of palliative care and more targeted therapy pending results of guardant 360. 07/13/2022. X-ray of the hip and pelvis revealed multifocal osteoblastic metastatic disease seen throughout the pelvis and hips. There was no acute fracture or dislocation within the pelvis or the hips. 07/15/2022. MRI of the lumbar spine performed. This showed diffuse osseous metastatic disease with moderate to severe bilateral hydronephrosis slightly progressed on the right. A single enlarged right retrocaval lymph node is again noted measuring 1.3 cm. 07/16/2022. Patient undergoes bilateral retrograde and stent placement. 07/17/2022. Patient seen in radiation oncology for evaluation and discussion of the role of palliative radiation for his low back and left pelvic pain. This chart was completed in part utilizing [employer] Speech Voice Recognition software. Grammatical errors, random word insertions, pronoun errors and incomplete sentences are occasional consequence of this system due to software limitations, ambient noise and hardware issues. Any formal questions or concerns about the content, text or information contained within the body of this dictation should be directly addressed to the provider for clarification. Hang Dunn MD Department of Radiation Oncology [facility] Allergies Allergy/AdvReac Type Severity Reaction Status Date / Time No Known Allergies Allergy Verified 07/13/22 15:19 Home Medications Medication Instructions Recorded Confirmed Type clonidine HCl 0.1 mg tablet 0.1 mg PO TID 12/12/21 07/13/22 History cyclobenzaprine 10 mg tablet 10 mg PO BID 12/12/21 07/13/22 History diphenoxylate-atropine 2.5 1 tab PO Q6H PRN diarrhea #14 tabs 12/12/21 07/13/22 Rx mg-0.025 mg tablet (Lomotil) metoprolol succinate 50 mg 50 mg PO DAILY 12/12/21 07/13/22 History tablet,extended release 24 hr ondansetron HCl 8 mg tablet 8 mg PO Q6 PRN Nausea 12/12/21 07/13/22 History prednisone 5 mg tablet 5 mg PO BID 12/12/21 07/13/22 History Patient History Medical History Acute dehydration Advanced care planning/counseling discussion YASSINE (acute kidney injury) Cancer related pain Hydronephrosis Hypertension Palliative care encounter Prostate cancer metastatic to bone Social History Smoking Status: Never smoker Second Hand Exposure: No; Hx Alcohol Use: No Hx Substance Use: Yes Substance Use Type Other:: medical Preferred Language: Barbadian Communication Ability: Effective Hogshead Hooper Required: No Beliefs That Will Affect Care: None marital status: Single Current Living Situation: Alone Feels Safe at Home: Yes Assistive Devices: Cane, Walker and Wheelchair Physical Exam Constitutional: WD/WN, vitals as above Eyes: PERRL, conjunctivae normal, anicteric sclerae ENMT: Poor dentition. Neck: trachea midline, no thyromegaly Respiratory: normal respiratory effort, lungs clear to auscultation Cardiovascular: RRR, no murmur, no edema Gastrointestinal (Abdomen): The abdomen is soft. There is some tenderness in the right upper quadrant with deep breathing and the liver edge is palpated. No abdominal masses appreciated. Musculoskeletal: There is no evidence of peripheral edema Skin: no rashes, warm and dry Neurologic: Cranial nerves II through XII are intact with no obvious evidence of cerebellar, sensory or motor weakness. Psychiatric: A+Ox3, euthymic affect Lymphatic: There is no palpable cervical, supraclavicular, axillary or inguinal adenopathy appreciated. Results (Rad Onc) Laboratory Results: were reviewed and pertinent findings noted in HPI Pathology Results: were reviewed and pertinent findings noted in HPI Imaging Studies: were reviewed and pertinent findings noted in HPI Time Spent Attending This documentation has been prepared in full by Dr. Dunn. I have personally reviewed the services described and have reviewed the documentation to ensure its accuracy. I spent 25 minutes with direct face to face interaction with the patient which included obtaining clinical information, recommending a plan of action and answering questions. I spent 20 minutes reviewing his scans with radiology and his chart and preparation of this document. LUZMA
[2022-07-17] MEDS: SODIUM CHLORIDE 0.9% 1000ML 1,000 ML IV SCH (12:31)
--- NOTE | 2022-07-17 14:00 | Palliative Care Progress Note ---
Date of Service July 17, 2022 Assessment & Plan (1) Palliative care encounter: Plan: For Oncology Patients: Patient's Palliative Prognostic Score (PaP) Score = 6.5 points/Interpretation:30-day survival probability 30-70% [email or web address] Patient's Palliative Prognostic Index (PPI) Score = 9 points/Note:If the PPI is greater than 6.0, survival is less than three weeks (Sensitivity - 80%; Spec ificity - 85%) [email or web address] (2) Cancer related pain: Plan: Patient reports a persisting 8/10 pain, not relieved by TDF increase. Using prn meds. Anticipates RT positioning will be more painful. 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 I will defer increasing TDF until tomorrow, sometimes a full 48hr can be needed to determine if dose adjustment is helping. He is ok with the current regimen and prefers to ask for PRN as needed, but also hopes RT will reduce pain, so he does not want to increase TDF dose unless he needs to. (3) Advanced care planning/counseling discussion: Plan: Met with pt at bedside x 30 min, no family is present. He shares his AD - his sister Luanne/tel# [phone] is HCP. he elects DNR/DNI. we discussed and reviewed this, pt acknowledges he is terminally ill, cancer isn't curable and he has limited time. Abhijit shared a copy of his advance directive with me. He designates his Sister Luanne as his surrogate decision-maker. He also lacks no CODE STATUS, does not wish to be placed on machines, have artificial nutrition or aggressive interventions, and wishes to allow for a peaceful and natural . We discussed his goals of care a little bit further. He states that he knows his time is running out. He states that he knows this was his last Lizz to celebrate with his family. When I asked him where he saw himself at the end of his life, he replied that he would like to be at home spending time with friends and family and not in a hospital. He acknowledges that he may not be able to get home because of the limitations of his caregivers who have been unreliable and inconsistent as well as the unavailability of family to provide fbtrgf-iac-aeyni support. His sister lives 10 hours away in [place]. His daughter is a full-time childcare provider and has offered to have patient move in with her but is not able to provide oimvsj-vbn-chhmj care. We talked about services that hospice could provide at home, specifically emphasizing that this would be a visiting nurse service and that the majority of the hands-on care would need to come from family and caregivers. He acknowledges the limitation in this requirement and is agreeable to a fdc discharge. He would like a trial of rehab in the hopes of trying to improve some strength and mobility. We discussed that this may also help improve some of his pain if he could learn better body dynamics for things such as personal care. He states that he knows he may have to stay in a snf although's is still not his first choice he asked that I call his Sister Luanne and provide an update I called his Sister Luanne who is listed as his healthcare surrogate x 33min. I reviewed all of the above and she shared her perspective as well, noting that when she had come up to visit him during the holiday, he spent that entire week in bed and was not able to get up or do much for himself. She also notes that his in-home caregivers are already unreliable and not showing up. He has some very kind neighbors who tried to help as much as they can but they are not available for qzdgtl-uts-snacb support. He has not been willing to move in with his daughter. I reviewed his advanced directive, of which Luanne does have a copy. She states that patient and her have had numerous discussions about the goals of care and end-of-life wishes, especially because they are the 2 remaining siblings after the loss of both parents and 2 additional siblings. She states that they have been through quite a lot together and even though the losses of her other family members were understandably difficult, losing Abhijit will be the hardest for her because he is the one with whom she has endured all the other losses. She also shares that she believes Kavon is afraid of dying. He consistently tells her and has indicated to me that he is aware of his mortality and he is ready to , "I am right with the Lord I am not worried about anything in that way," but he still fears the dying process most especially suffering and progression of his already severe cancer related pain. He has asked her to promise him that he will not have uncontrolled pain and that she will make sure he is comfortable as he can be. She feels that he would benefit from additional spiritual support while here in the hospital as he has vocalized to her some concerns about why God may be punishing him with this severe cancer pain. I told her I would asked the general farmer to stop by and begin regular visits with patient to provide ongoing psychosocial and spiritual support. Luanne was especially grateful for this. Luanne and I discussed disposition planning. She is in agreement for discharge to a snf and I discussed that it would be best to move him to long-term care once his skilled rehab days are consumed. I advised her the manager nursing would have to initiate an application for Medicaid so that patient would have his room and board for the snf P3 Medicaid and his Medicare can then be used for hospice at the snf. We discussed the benefits and services provided by hospice in detail. Luanne is very welcoming of the hospice philosophy and notes that the prior 4 family members who also had encounters with hospice and end-of-life care providers. All of these were positive experiences for them as a family. She is supportive of a referral to hospice and feels that this would provide the patient with much-needed additional psychosocial support, medication management, and expertise in ensuring he does not suffer at the end of his life. I advised her she needs to make sure that this is communicated to the snf and I will also asked care management to conveyed to the snf the patient is coming for trial of rehab but the overall focus is comfort with no further escalation of care and once his rehab days are over, he will be moved to long-term care with the addition of hospice at the snf. Luanne was extremely appreciative of this discussion and all questions were answered to her apparent satisfaction. I have updated the primary team and career manager. (4) Prostate cancer metastatic to bone: Plan Discharged to snf for a trial of rehab, once rehab days are used moved to long-term care. harvest worker fruit will need to begin a Medicaid application. Once rehab days are used, patient and family would like the addition of hospice at the snf with long-term care. Ongoing palliative medicine engagement for cancer related pain management as noted above. Extensive psychosocial support provided as outlined above. Professor Of Communication And Writing engaged and requested, patient is experiencing significant existential distress and spiritual suffering with a fear of dying due to the distress of his uncontrolled pain. Radha William DNP Clinical Director, Palliative Medicine Late entry note, note completed 07/18/2022 for visit of 07/17/2022 Admission and Anticipated Discharge Date Admission Date: July 13, 2022 Subjective cancer related pain mgt follow up patient states he has a copy of his AD for us to review/copy for EMR he is hoping to have RT started, tells me this is palliative RT, he understands cancer is not curableexpresses wish to be able to go home but frustrated by lack of stable caregiver support thru his agency appetite is ok, denies n.v.d Asks if I would call his sister to update/"keep her in the loop bc she's in charge of all my decisions" Review of Systems Review of Systems: All systems reviewed & are unremarkable except as noted in Subjective Physical Exam Physical Exam: Chronically ill-appearing gentleman, semi recline in bed, legs out at angle on his left. remains unable to move/ambulate across the room without severe pain. Respirations are even with no increased effort noted. Heart tones are normal. Abdomen is soft and nontender. He has significant tenderness along his spine and he describes a radiating pain into his lower extremities left more than right. Overall strength is diminished in a gen eralized manner. He is awake alert and oriented x3. He is able to follow commands. His mood is subdued but he is pleasant and cooperative with this examiner. His skin color is pale, cool to touch. There is no cyanosis or clubbing noted. Results & Data ([facility]) Vital Signs (Past 12 Hours) Vital Signs Temp Pulse Resp BP Pulse Ox O2 Del Method 07/17/22 13:34 36.6 C 103 H 16 102/69 97 Room Air 07/17/22 11:21 36.9 C 94 H 16 102/69 98 Room Air 07/17/22 09:02 104 H 117/80 97 Room Air 07/17/22 07:13 36.9 C 96 H 18 101/66 97 Room Air 07/17/22 03:25 36.6 C 83 16 105/71 96 Room Air Laboratory Results data reviewed Diagnostic Findings data reviewed PG Care Time/CCT Total # of Minutes Spent Total Time Spent: 103 Total Time Spent with Patient: Total time spent is greater than 50% in coordination of care (as documented) at patient's floor/unit and/or counseling patient: I spent 103 minutes overall addressing this case: 10 in medical data review/discussion with referring provider(s) and/or preparation for the visit 10 in direct interaction with the patient 63 Advance Care Planning/Goals of Care discussions as detailed above in note (must be >16min) with patient and his sister 10 in subsequent review and synthesis of assessment and plan 10 in communicating with other providers regarding the patient's case: [] Prolonged Care Time Prolonged Care Time: Yes Advanced Care Planning 43971 Advanced Care Planning Additional 30 Min [place] [address] SUB INP/OBS CARE 3/50MIN Patient Type Established History Detailed Exam Detailed Medical Decision Making High Complexity Diagnoses Palliative care encounter Z51.5 Cancer related pain G89.3 Advanced care planning/counseling discussion Z71.89 Prostate cancer metastatic to bone C61; C79.51 Additional Codes Prolonged Care Time - Prolonged Care Time: Yes ([id number]) Advanced Care Planning - 98882 Advanced Care Planning Additional 30 Min: 85680 Advanced Care Planning Additional 30 Min ([id number])
--- NOTE | 2022-07-17 14:08 | Hospitalist Progress Note ---
Date of Service July 17, 2022 Assessment & Plan (1) Prostate cancer metastatic to bone: Plan: (1) Prostate cancer metastatic to bone: Plan: - Progressive despite multiple tx including enzalutamide, olaparib, Doxil Taxol, carbo as a Taxol. - Guarded prognosis, outpt referrals made to palliative care. Consulted while inpatient - Most severe pain suspect 2/2 bony metastasis at L buttock/hip Inadequate control with fentanyl 50 mcg every 3 days, oxycodone 20 mg every 4every 6. Increased to fent 75mcg patch and scaled hydromorphine. - Rad/onc and pain management consulted, plan is for palliative radiation - Continue multimodal pain control. Tylenol [dose reduced], fentanyl patch, and scaled breakthrough morphine - Narcan PRN for respiratory suppression/narcosis -Palliative on board (2) Acute pain of left hip: Plan: L Hip Pain -XR: 1. No acute fracture or dislocation within the pelvis or hips.2. Multifocal osteoblastic metastatic disease again noted. -Increased fentanyl patch from 50 up to 75, oral analgesia converted to IV, continue to follow. Palliative consulted, radiation oncology also consulted? If patient can receive palliative radiation while inpatient, was scheduled for this next week. We will hold Dex pending evaluation, continue baseline prednisone -MRI has been done, no evidence of spinal stenosis but Diffuse osseous metastatic disease again noted. -Palliative on board for pain mgt, -Radiation oncology also on consult, plan is for palliative radiation (3) Hypertension: Plan: Continue clonidine, metoprolol BP under good control (4) Hydronephrosis: Plan: Found to have moderate-severe hydronephrosis on MRI He is day 1 s/p cystoscopy and bilateral stents placement Urology on board (5) YASSINE (acute kidney injury): Plan: MRI shows evidence of hydronephrosis Improving cr following cystoscopy and stent placement appreciate nephrology and urology Plan Plan DVT prophylaxis: Defer Lovenox in the setting of YASSINE/unclear renal baseline. Heparin Disposition: Medical/telemetry Diet: Regular, nutrition consult placed to maximize calories Full code, discussed with patient. See goals of care above Patient will need placement after hospital stay. Declining functional capacity, he lives alone Admission and Anticipated Discharge Date Admission Date: July 13, 2022 Subjective patient seen and examined, still with some hip pain, looking forward to palliative radiation Review of Systems Review of Systems: All systems reviewed are negative, apart from the ones contained in the history. Physical Exam Physical Exam: The patient is awake, alert and oriented 3, well developed and well nourished, normocephalic and atraumatic, lying in bed and in no acute distress. HEENT--PERRL, EOMI, mucous membranes and oropharynx mildly dry Neck--supple. No JVD. No bruits. Thyroid normal, trachea midline, no adenopathy. Heart--normal S1 and S2. No murmurs, rubs or gallops. Lungs--clear bilaterally, no respiratory distress, no accessory muscle use. Abdomen--normal bowel sounds and soft. Mild epigastric and left sided abdominal pain Extremities--no cyanosis or clubbing. No edema. Dermatologic--normal skin turgor, normal color, no abnormal lymph nodes, no rash. Neurologic--cranial nerves II through XII grossly intact. Rheumatologic--normal range of motion. Psychiatric--normal affect. Results & Data Results & Data ([facility]) Vital Signs (Past 12 Hours) Vital Signs Temp Pulse Resp BP Pulse Ox O2 Del Method 07/17/22 13:34 97.9 F 103 H 16 102/69 97 Room Air 07/17/22 11:21 98.4 F 94 H 16 102/69 98 Room Air 07/17/22 09:02 104 H 117/80 97 Room Air 07/17/22 07:13 98.4 F 96 H 18 101/66 97 Room Air 07/17/22 03:25 97.9 F 83 16 105/71 96 Room Air PG Care Time/CCT Total # of Minutes Spent Total Time Spent with Patient: Total time spent is greater than 50% in coordination of care (as documented) at patient's floor/unit and/or counseling patient: Coding Level of Care Code 29951 SUB INP/OBS CARE 2/35MIN Diagnoses Prostate cancer metastatic to bone C61; C79.51 Acute pain of left hip M25.552 Hypertension I10 Hydronephrosis N13.30 YASSINE (acute kidney injury) N17.9 Time Spent (min) 35
[2022-07-18] MEDS: SODIUM CHLORIDE 0.9% 1000ML 1,000 ML IV SCH ×2 (01:05→13:39)
[2022-07-18] MEDS: CHECK fentaNYL PATCH PLACEMENT SCH ×3 (07:29→23:29)
[2022-07-18] MEDS: POLYETHYLENE (MIRALAX) 17 GM PACK PO SCH (07:30)
[2022-07-18] MEDS: LIDOCAINE 5% 1 PATCH TD SCH (07:30)
[2022-07-18] MEDS: HEPARIN SOD 5,000 UNIT/0.5 ML VIAL SQ SCH ×2 (07:31→20:39)
[2022-07-18 07:46] LABS: Hematocrit (blood only) 22.3 % (40.1-51.0); Hemoglobin 7.5 g/dl (14.0-18.0); Mean Corpuscular Hemoglobin 27.2 pg (25.0-34.0); Mean Corpuscular Hgb Conc 33.6 g/dL (32.0-36.0); Mean Corpuscular Volume 80.8 fL (80.0-100.0); Mean Platelet Volume 9.3 fL (9.4-12.4); Nucleated RBC # (auto) 0.03 K/uL (0-0); Nucleated RBC % (auto) 0.3 %; Platelet Count 182 K/uL (130-400); RDW Coefficient of Variation 18.6 % (11.5-14.5); RDW Standard Deviation 54.6 fL (36.4-46.3); Red Blood Count 2.76 M/uL (4.63-6.08); White Blood Count 8.71 K/ul (4.8-10.8)
[2022-07-18 08:18] LABS: Albumin Level 2.6 gm/dl (3.4-5.0); BUN Creatinine Ratio 18.8 (10-20); Bilirubin,Total 0.3 mg/dl (0.2-1.0); Creatinine Clr Calc Pharmacy 29.9 ml/min; Est GFR (African American) 33.2 ml/min; Est GFR (Non-African American) 28.6 ml/min; Globulin 2.5 gm/dl (2.5-4.0); Potassium 3.9 mmol/L (3.5-5.1); Total Protein 5.1 gm/dl (6.0-8.3)
--- NOTE | 2022-07-18 09:21 | Nephrology Progress Note ---
Date of Service July 18, 2022 Assessment & Plan (1) YASSINE (acute kidney injury): Plan: * YASSINE due to bilateral ureteral obstruction from metastatic prostate CA * Cystoscopy w/ bilateral ureteral stent placement completed 07/16/22 * Now nonoliguric, Cr trending down (Cr 3.8-->2.3) * Mild hyponatremia, otherwise electrolyte balance is acceptable. Patient is euvolemic to volume contracted. No indication for PREPARATION ROOM MANAGER at this time * Monitor PRP, UO (2) Hypertension: Plan: * BP is currently well controlled. Continue Metoprolol therapy (3) Prostate cancer metastatic to bone: Plan: * Plan for radiation therapy and palliative care Admission and Anticipated Discharge Date Admission Date: July 13, 2022 Subjective Mr. Brennan was evaluated in his hospital room this morning. He denied dyspnea, flank pain or uremic symptoms Review of Systems Constitutional: no fever Eyes: no problem reported Ear, Nose, Mouth, Throat: no problem reported Respiratory: no dyspnea Cardiovascular: no chest pain Gastrointestinal: no abdominal pain, no vomiting and no diarrhea/loose stools Neurologic: no confusion Physical Exam Constitutional: not in distress Eyes: PERRL, conjunctivae normal, anicteric sclerae ENMT: Mouth: + poor dentition Neck: trachea midline, no thyromegaly Respiratory: normal respiratory effort, lungs clear to auscultation Cardiovascular: Rate/Rhythm: regular rate and regular rhythm Gastrointestinal (Abdomen): normal bowel sounds, soft, nontender, no hepatosplenomegaly Neurologic: Speech / Cognition: normal speech and normal cognition Results & Data ([facility]) Vital Signs (Past 12 Hours) Vital Signs Temp Pulse Pulse Resp BP Pulse Ox O2 Del Method 07/18/22 08:10 36.8 C 90 13 116/80 97 Room Air 07/18/22 07:32 36.9 C 96 H 14 101/68 96 Room Air Laboratory Results Laboratory Tests 07/13/22 07/16/22 07/17/22 12:18 09:01 08:24 WBC 10.26 Hgb 7.9 L Hct 24.4 L Plt Count 192 Sodium Potassium Chloride Carbon Dioxide BUN Creatinine 3.83 H D Glucose Calcium Albumin 3.4 07/17/22 07/18/22 07/18/22 08:24 07:27 07:27 WBC 8.71 Hgb 7.5 L Hct 22.3 L Plt Count 182 Sodium 131 L 133 L Potassium 4.9 3.9 D Chloride 101 102 Carbon Dioxide 20 L 20 L BUN 53 H 45 H Creatinine 3.31 H D 2.39 H D Glucose 119 H 139 H Calcium 7.6 L Albumin PG Care Time/CCT Total # of Minutes Spent Total Time Spent with Patient: Total time spent is greater than 50% in coordination of care (as documented) at patient's floor/unit and/or counseling patient: Coding Level of Care Code 05017 SUB INP/OBS CARE 3/50MIN Diagnoses YASSINE (acute kidney injury) N17.9 Hypertension I10 Prostate cancer metastatic to bone C61; C79.51
[2022-07-18] MEDS: predniSONE 5 MG TAB PO SCH ×2 (09:23→20:39)
[2022-07-18] MEDS: MAGNESIUM OXIDE 400 MG TAB PO SCH ×2 (09:23→20:38)
[2022-07-18] MEDS: cloNIDine HCL 0.1 MG TAB PO SCH ×3 (09:23→20:43)
[2022-07-18] MEDS: CYCLOBENZAPRINE HCL 10 MG TAB PO SCH ×2 (09:23→20:40)
[2022-07-18] MEDS: METOPROLOL SUCC 50MG EXT REL TAB PO SCH (09:23)
[2022-07-18] MEDS: PANTOprazole 40 MG TAB PO SCH (09:23)
--- NOTE | 2022-07-18 10:51 | Urology Progress Note ---
Date of Service July 18, 2022 Assessment & Plan (1) Prostate cancer metastatic to bone: (2) YASSINE (acute kidney injury): (3) Hydronephrosis: Plan 61yo/M with a hx of prostate cancer with liver and bone metastasis that has progressed through multiple lines of treatment admitted with severe left hip pain. Patient had previously followed with a [facility] at [place]. Patient has been dealing with worsening issues with pain and discomfort. Had been found to have significant increase in lower urinary tract symptoms, decreasing urine output, and significant elevation of creatinine. POD 2 s/p cystoscopy, bilateral retrograde pyelogram, bilateral ureteral stent placement. He is afebrile and hemodynamically stable. Creatinine downtrending to 2.39 today. Continue to trend. Tolerating the ureteral stents and Matamoros catheter with minimal bother. Urine is clear yellow. Continue to monitor. Will plan to maintain stents for drainage bilaterally and continue to monitor renal function. Patient can have a voiding trial prior to discharge from urology standpoint. Rad onc note reviewed, plan is for palliative radiation. We will arrange outpatient follow-up with our service for continued care and stent management. Urology will follow peripherally. Please contact us with any further questions, concerns, or changes in patient's status. Admission and Anticipated Discharge Date Admission Date: July 13, 2022 Supervising Physician Co-Signing Physician Notes Discussed patient with GOGO. Agree with plan. Subjective Patient examined at bedside this AM. Awake, resting in bed on arrival. No acute distress. Tolerating the ureteral stents with minimal bother. Still notes left hip pain. Denies fevers or chills. Denies nausea or vomiting. Matamoros catheter intact, draining clear yellow urine. Urine output [id number] mL. Review of Systems Constitutional: as per Subjective / HPI Gastrointestinal: as per Subjective / HPI Genitourinary: + as per Subjective / HPI Physical Exam Constitutional: + ill appearing and + frail appearing; no acute distress Respiratory: no respiratory distress and no labored breathing Musculoskeletal: Head/Neck/Chest: normocephalic Skin: No visible rashes or lesions Neurologic: awake Psychiatric: Orientation: alert, oriented x 3 and cooperative Genitourinary: Matamoros catheter intact Results & Data ([facility]) Vital Signs (Past 12 Hours) Vital Signs Temp Pulse Pulse Resp BP Pulse Ox O2 Del Method 07/18/22 09:21 96 H 109/74 07/18/22 08:10 36.8 C 90 13 116/80 97 Room Air 07/18/22 07:32 36.9 C 96 H 14 101/68 96 Room Air PG Care Time/CCT Total # of Minutes Spent Total Time Spent with Patient: Total time spent is greater than 50% in coordination of care (as documented) at patient's floor/unit and/or counseling patient: Coding Level of Care Code 54704 SUB INP/OBS CARE 2/35MIN Diagnoses Prostate cancer metastatic to bone C61; C79.51 YASSINE (acute kidney injury) N17.9 Hydronephrosis N13.30
[2022-07-18] MEDS: fentaNYL 100 MCG/HR TDSY TD SCH (12:32)
--- NOTE | 2022-07-18 14:40 | Hospitalist Progress Note ---
Date of Service July 18, 2022 Assessment & Plan (1) Prostate cancer metastatic to bone: Plan: - Progressive prostate cancer despite multiple tx including enzalutamide, olaparib, Doxil Taxol, carbo as a Taxol. - Most severe pain suspect 2/2 bony metastasis at L buttock/hip Inadequate control with fentanyl 50 mcg every 3 days, oxycodone 20 mg every 4every 6. Increased to fent 75mcg patch and scaled hydromorphine. - Rad/onc and pain management consulted, plan is for palliative radiation - Continue multimodal pain control. Tylenol [dose reduced], fentanyl patch, and scaled breakthrough morphine - Narcan PRN for respiratory suppression/narcosis -Palliative on board (2) Acute pain of left hip: Plan: L Hip Pain -XR: 1. No acute fracture or dislocation within the pelvis or hips.2. Multifocal osteoblastic metastatic disease again noted. -Increased fentanyl patch from 50 up to 75, oral analgesia converted to IV, continue to follow. Palliative consulted, radiation oncology also consulted? If patient can receive palliative radiation while inpatient, was scheduled for this next week. We will hold Dex pending evaluation, continue baseline prednisone -MRI has been done, no evidence of spinal stenosis but Diffuse osseous metastatic disease again noted. -Palliative on board for pain mgt, -Radiation oncology also on consult, plan is for palliative radiation (3) Hypertension: Plan: Continue clonidine, metoprolol BP under good control (4) Hydronephrosis: Plan: Found to have moderate-severe hydronephrosis on MRI He is day 1 s/p cystoscopy and bilateral stents placement Urology on board (5) YASSINE (acute kidney injury): Plan: MRI shows evidence of hydronephrosis Improving cr following cystoscopy and stent placement appreciate nephrology and urology Plan Plan DVT prophylaxis: Defer Lovenox in the setting of YASSINE/unclear renal baseline. Heparin Disposition: Medical/telemetry Diet: Regular, nutrition consult placed to maximize calories Full code, discussed with patient. See goals of care above Patient will need placement after hospital stay. SNF or rehab Declining functional capacity, he lives alone Admission and Anticipated Discharge Date Admission Date: July 13, 2022 Subjective patient seen and examined, denies any flank pain, but some hip pains Review of Systems Review of Systems: All systems reviewed are negative, apart from the ones contained in the history. Physical Exam Physical Exam: The patient is awake, alert and oriented 3, well developed and well nourished, normocephalic and atraumatic, lying in bed and in no acute distress. HEENT--PERRL, EOMI, mucous membranes and oropharynx mildly dry, poor dentition Neck--supple. No JVD. No bruits. Thyroid normal, trachea midline, no adenopathy. Heart--normal S1 and S2. No murmurs, rubs or gallops. Lungs--clear bilaterally, no respiratory distress, no accessory muscle use. Abdomen--normal bowel sounds and soft. Mild epigastric and left sided abdominal pain Extremities--no cyanosis or clubbing. No edema. Dermatologic--normal skin turgor, normal color, no abnormal lymph nodes, no rash. Neurologic--cranial nerves II through XII grossly intact. Rheumatologic--normal range of motion. Psychiatric--normal affect. Results & Data Results & Data ([facility]) Vital Signs (Past 12 Hours) Vital Signs Temp Pulse Pulse Resp BP Pulse Ox O2 Del Method 07/18/22 12:10 98.2 F 79 14 110/70 95 Room Air 07/18/22 09:21 96 H 109/74 07/18/22 08:10 98.2 F 90 13 116/80 97 Room Air 07/18/22 07:32 98.4 F 96 H 14 101/68 96 Room Air PG Care Time/CCT Total # of Minutes Spent Total Time Spent with Patient: Total time spent is greater than 50% in coordination of care (as documented) at patient's floor/unit and/or counseling patient: Coding Level of Care Code 45362 SUB INP/OBS CARE 2/35MIN Diagnoses Prostate cancer metastatic to bone C61; C79.51 Acute pain of left hip M25.552 Hypertension I10 Hydronephrosis N13.30 YASSINE (acute kidney injury) N17.9 Time Spent (min) 35
--- NOTE | 2022-07-18 15:42 | Communication Note ---
Date of Service: July 18, 2022 Abhijit's cancer related pain remains a steady 8 out of 10. I have adjusted his transdermal fentanyl dose to 100 mcg/h every 3 days. I provided a detailed update to his sister, Luanne. Plan at this time will be [facility] with a likely transition to long- term care and hospice. In the interim we will continue to work on his pain management to optimize his comfort. He is starting radiation therapy to help palliate his bone mets as well. TS 18min Radha William DNP Clinical Director, Palliative Medicine
[2022-07-19 01:20] LABS: Appearance Urine Cloudy (Clear); Bacteria Urine Automated Negative (Negative); Bilirubin Urine Negative (Negative); Blood Urine 3+ (Negative); Color Urine Yellow; Epithelial Cell Urine Auto >30 /lpf (0-5); Glucose Urine UA Negative (Negative); Ketones Urine Negative (Negative); Leukocyte Esterase Urine 2+ (Negative); Nitrite Urine Negative (Negative); Protein Urine 2+ (Negative); Specific Gravity Urine 1.009 (1.000-1.030); Urobilinogen Urine Negative (Negative); WBC Urine Automated >30 /hpf (0-5); pH Urine 5.5 (4.5-7.5)
[2022-07-19] MEDS: SODIUM CHLORIDE 0.9% 1000ML 1,000 ML IV SCH ×2 (03:13→16:21)
[2022-07-19 08:17] LABS: Hematocrit (blood only) 21.2 % (40.1-51.0); Mean Corpuscular Hemoglobin 26.3 pg (25.0-34.0); Mean Corpuscular Volume 79.7 fL (80.0-100.0); Mean Platelet Volume 9.1 fL (9.4-12.4); Nucleated RBC # (auto) 0.03 K/uL (0-0); Nucleated RBC % (auto) 0.4 %; Platelet Count 195 K/uL (130-400); RDW Coefficient of Variation 18.4 % (11.5-14.5); Red Blood Count 2.66 M/uL (4.63-6.08); White Blood Count 8.14 K/ul (4.8-10.8)
--- NOTE | 2022-07-19 08:52 | Nephrology Progress Note ---
Date of Service July 19, 2022 Assessment & Plan (1) YASSINE (acute kidney injury): Plan: * YASSINE due to bilateral ureteral obstruction from metastatic prostate CA * Cystoscopy w/ bilateral ureteral stent placement completed 07/16/22 * Now nonoliguric, Cr trending down (Cr 3.8-->1.7). Baseline Cr 1.2 * No further Nephrology evaluation indicated. Will sign off. Please call if further Nephrology assistance is needed (2) Hypertension: Plan: * BP is currently well controlled. Continue Metoprolol therapy (3) Prostate cancer metastatic to bone: Plan: * Plan for radiation therapy and palliative care Admission and Anticipated Discharge Date Admission Date: July 13, 2022 Subjective Mr. Brennan was evaluated in his hospital room this morning. He denied dyspnea, flank pain or uremic symptoms Review of Systems Constitutional: no fever Eyes: no problem reported Ear, Nose, Mouth, Throat: no problem reported Respiratory: no dyspnea Cardiovascular: no chest pain Gastrointestinal: no abdominal pain, no vomiting and no diarrhea/loose stools Neurologic: no confusion Physical Exam Constitutional: + ill appearing; not in distress Eyes: PERRL, conjunctivae normal, anicteric sclerae ENMT: Mouth: + poor dentition Neck: trachea midline, no thyromegaly Respiratory: normal respiratory effort, lungs clear to auscultation Cardiovascular: Rate/Rhythm: regular rate and regular rhythm Gastrointestinal (Abdomen): normal bowel sounds, soft, nontender, no hepatosplenomegaly Neurologic: Speech / Cognition: normal speech and normal cognition Results & Data ([facility]) Vital Signs (Past 12 Hours) Vital Signs Temp Pulse Resp BP Pulse Ox O2 Del Method 07/19/22 07:44 36.8 C 85 18 126/84 98 Room Air 07/18/22 23:29 36.8 C 86 17 96 Room Air Laboratory Results Laboratory Tests 07/19/22 07/19/22 07:48 07:48 WBC 8.14 Hgb 7.0 L Hct 21.2 L Plt Count 195 Sodium 135 L Potassium 3.7 Chloride 104 Carbon Dioxide 23 BUN 34 H Creatinine 1.73 H D Calcium 6.9 L PG Care Time/CCT Total # of Minutes Spent Total Time Spent with Patient: Total time spent is greater than 50% in coordination of care (as documented) at patient's floor/unit and/or counseling patient: Coding Level of Care Code 51887 SUB INP/OBS CARE 50MIN Diagnoses YASSINE (acute kidney injury) N17.9 Hypertension I10 Prostate cancer metastatic to bone C61; C79.51
[2022-07-19 09:08] LABS: BUN Creatinine Ratio 19.7 (10-20); Calcium 6.9 mg/dl (8.5-10.1); Creatinine Clr Calc Pharmacy 41.3 ml/min; Est GFR (Non-African American) 42.3 ml/min; Potassium 3.7 mmol/L (3.5-5.1)
[2022-07-19] MEDS: CYCLOBENZAPRINE HCL 10 MG TAB PO SCH ×2 (09:16→19:59)
[2022-07-19] MEDS: cloNIDine HCL 0.1 MG TAB PO SCH ×3 (09:16→20:00)
[2022-07-19] MEDS: CHECK fentaNYL PATCH PLACEMENT SCH ×3 (09:16→23:38)
[2022-07-19] MEDS: predniSONE 5 MG TAB PO SCH ×2 (09:17→20:00)
[2022-07-19] MEDS: HEPARIN SOD 5,000 UNIT/0.5 ML VIAL SQ SCH ×2 (09:17→19:58)
[2022-07-19] MEDS: PANTOprazole 40 MG TAB PO SCH (09:17)
[2022-07-19] MEDS: MAGNESIUM OXIDE 400 MG TAB PO SCH ×2 (09:17→19:55)
[2022-07-19] MEDS: POLYETHYLENE (MIRALAX) 17 GM PACK PO SCH (09:18)
[2022-07-19] MEDS: LIDOCAINE 5% 1 PATCH TD SCH (09:18)
[2022-07-19] MEDS: METOPROLOL SUCC 50MG EXT REL TAB PO SCH (09:18)
[2022-07-19] MEDS: HYDROmorphone INJ 1 MG/ML SYRINGE IV PRN ×3 (09:19→21:20)
[2022-07-19] MEDS ORDERED: SODIUM CHLORIDE 0.9% 250 ML IV PRN (13:36)
--- NOTE | 2022-07-19 13:43 | Hospitalist Progress Note ---
Date of Service July 19, 2022 Assessment & Plan (1) Prostate cancer metastatic to bone: Plan: - Progressive prostate cancer despite multiple tx including enzalutamide, olaparib, Doxil Taxol, carbo as a Taxol. - Most severe pain suspect 2/2 bony metastasis at L buttock/hip Inadequate control with fentanyl 50 mcg every 3 days, oxycodone 20 mg every 4every 6. Increased to fent 75mcg patch and scaled hydromorphine. - Rad/onc and pain management consulted - Continue multimodal pain control. Tylenol [dose reduced], fentanyl patch, and scaled breakthrough morphine - Patient tolerating palliative radiation therapy, another session scheduled for today -Palliative on board (2) Acute pain of left hip: Plan: L Hip Pain -XR: 1. No acute fracture or dislocation within the pelvis or hips.2. Multifocal osteoblastic metastatic disease again noted. -Increased fentanyl patch from 50 up to 75, oral analgesia converted to IV, continue to follow. Palliative consulted, radiation oncology also consulted? If patient can receive palliative radiation while inpatient, was scheduled for this next week. We will hold Dex pending evaluation, continue baseline prednisone -MRI has been done, no evidence of spinal stenosis but Diffuse osseous metastatic disease again noted. -Palliative on board for pain mgt, -Radiation oncology also on consult, continue palliative radiation (3) Hypertension: Plan: Continue clonidine, metoprolol BP under good control (4) Hydronephrosis: Plan: Found to have moderate-severe hydronephrosis on MRI He is day 1 s/p cystoscopy and bilateral stents placement Urology on board (5) YASSINE (acute kidney injury): Plan: MRI shows evidence of hydronephrosis Improving cr following cystoscopy and stent placement appreciate nephrology and urology (6) Anemia: Plan: Hb 7 today Will transfuse 1 unit of blood Plan Plan DVT prophylaxis: Defer Lovenox in the setting of YASSINE/unclear renal baseline. Heparin Disposition: Medical/telemetry Diet: Regular, nutrition consult placed to maximize calories Full code, discussed with patient. See goals of care above Patient will need placement after hospital stay. SNF or rehab Declining functional capacity, he lives alone Admission and Anticipated Discharge Date Admission Date: July 13, 2022 Subjective patient seen and examined, pain is under good control, tolerating palliative radiation therapy Review of Systems Review of Systems: All systems reviewed are negative, apart from the ones contained in the history. Physical Exam Physical Exam: The patient is awake, alert and oriented 3, well developed and well nourished, normocephalic and atraumatic, lying in bed and in no acute distress. HEENT--PERRL, EOMI, mucous membranes and oropharynx mildly dry, poor dentition Neck--supple. No JVD. No bruits. Thyroid normal, trachea midline, no adenopathy. Heart--normal S1 and S2. No murmurs, rubs or gallops. Lungs--clear bilaterally, no respiratory distress, no accessory muscle use. Abdomen--normal bowel sounds and soft. Mild epigastric and left sided abdominal pain Extremities--no cyanosis or clubbing. No edema. Dermatologic--normal skin turgor, normal color, no abnormal lymph nodes, no rash. Neurologic--cranial nerves II through XII grossly intact. Rheumatologic--normal range of motion. Psychiatric--normal affect. Results & Data Results & Data ([facility]) Vital Signs (Past 12 Hours) Vital Signs Temp Pulse Pulse Resp BP Pulse Ox O2 Del Method 07/19/22 07:50 Room Air 07/19/22 09:25 115 H 109/73 96 Room Air 07/19/22 07:44 98.2 F 85 18 126/84 98 Room Air PG Care Time/CCT Total # of Minutes Spent Total Time Spent with Patient: Total time spent is greater than 50% in coordination of care (as documented) at patient's floor/unit and/or counseling patient: Coding Level of Care Code 31790 SUB INP/OBS CARE 2/35MIN Diagnoses Prostate cancer metastatic to bone C61; C79.51 Acute pain of left hip M25.552 Hypertension I10 Hydronephrosis N13.30 YASSINE (acute kidney injury) N17.9 Anemia D64.9 Anemia type: unspecified type Time Spent (min) 35 (1) Anemia Anemia type: unspecified type Qualified Code(s): D64.9 - Anemia, unspecified
--- NOTE | 2022-07-20 00:46 | Palliative Care Progress Note ---
Date of Service July 20, 2022 Assessment & Plan (1) Palliative care encounter: Plan: For Oncology Patients: Patient's Palliative Prognostic Score (PaP) Score = 6.5 points/Interpretation:30-day survival probability 30-70% [email or web address] Patient's Palliative Prognostic Index (PPI) Score = 9 points/Note:If the PPI is greater than 6.0, survival is less than three weeks (Sensitivity - 80%; Spec ificity - 85%) [email or web address] (2) Cancer related pain: Plan: Perhaps a little better. RT underway. TDF was increased. using prn meds no changes today (3) Advanced care planning/counseling discussion: Plan: see prior discussions needs placement, CM assisting (4) Prostate cancer metastatic to bone: Plan Discharge to longterm for a trial of rehab, once rehab days are used moved to long-term care. composite worker will need to begin a Medicaid application. Once rehab days are used, patient and family would like the addition of hospice at the longterm with long-term care. Ongoing palliative medicine engagement for cancer related pain management as noted above. Extensive psychosocial support provided Customer Care Voice Consultant support, pt with existential distress and spiritual suffering with a fear of dying due to the distress of his uncontrolled pain. Radha William DNP Clinical Director, Palliative Medicine Admission and Anticipated Discharge Date Admission Date: July 13, 2022 Subjective cancer related pain mgt RT underway will need placement no new complaints Review of Systems Review of Systems: All systems reviewed & are unremarkable except as noted in HPI & below Physical Exam Physical Exam: Chronically ill-appearing gentleman, semi recline in bed, legs out at angle on his left. remains unable to move/ambulate across the room without severe pain. Respirations are even with no increased effort noted. Heart tones are normal. Abdomen is soft and nontender. He has significant tenderness along his spine and he describes a radiating pain into his lower extremities left more than right. Overall strength is diminished in a generali zed manner. He is awake alert and oriented x3. He is able to follow commands. His mood is subdued but he is pleasant and cooperative with this examiner. His skin color is pale, cool to touch. There is no cyanosis or clubbing noted. Results & Data ([facility]) Vital Signs (Past 12 Hours) Vital Signs Temp Pulse Pulse Pulse Resp BP BP 07/19/22 20:40 36.8 C 85 17 104/70 07/19/22 20:44 36.8 C 85 17 07/19/22 18:53 36.5 C 96 H 15 120/81 07/19/22 19:42 36.5 C 96 H 15 120/81 07/19/22 17:53 36.8 C 98 H 18 108/73 07/19/22 17:23 36.5 C 86 16 126/86 07/19/22 17:08 36.8 C 81 20 126/82 07/19/22 17:07 36.9 C 79 18 121/79 07/19/22 16:40 36.8 C 80 18 112/76 07/19/22 15:16 36.7 C 86 18 105/72 BP Pulse Ox O2 Del Method 07/19/22 20:40 97 07/19/22 20:44 104/70 97 Room Air 07/19/22 18:53 97 07/19/22 19:42 97 Room Air 07/19/22 17:53 97 07/19/22 17:23 96 07/19/22 17:08 98 07/19/22 17:07 96 07/19/22 16:40 96 07/19/22 15:16 97 Room Air PG Care Time/CCT Total # of Minutes Spent Total Time Spent: 35 Total Time Spent with Patient: Total time spent is greater than 50% in coordination of care (as documented) at patient's floor/unit and/or counseling patient: Coding [place] [address] SUB INP/OBS CARE 2/35MIN Patient Type Established History Detailed Exam Expanded Problem Focused Medical Decision Making Moderate Complexity Diagnoses Palliative care encounter Z51.5 Cancer related pain G89.3 Advanced care planning/counseling discussion Z71.89 Prostate cancer metastatic to bone C61; C79.51
[2022-07-20] MEDS: HYDROmorphone INJ 1 MG/ML SYRINGE IV PRN ×3 (02:38→11:28)
[2022-07-20] MEDS: SODIUM CHLORIDE 0.9% 1000ML 1,000 ML IV SCH (08:28)
[2022-07-20] MEDS: CHECK fentaNYL PATCH PLACEMENT SCH ×2 (08:29→16:45)
[2022-07-20] MEDS: cloNIDine HCL 0.1 MG TAB PO SCH ×3 (08:30→20:07)
[2022-07-20] MEDS: CYCLOBENZAPRINE HCL 10 MG TAB PO SCH ×2 (08:30→20:05)
[2022-07-20] MEDS: HEPARIN SOD 5,000 UNIT/0.5 ML VIAL SQ SCH ×2 (08:30→20:06)
[2022-07-20] MEDS: LIDOCAINE 5% 1 PATCH TD SCH (08:31)
[2022-07-20] MEDS: MAGNESIUM OXIDE 400 MG TAB PO SCH ×2 (08:32→20:04)
[2022-07-20] MEDS: METOPROLOL SUCC 50MG EXT REL TAB PO SCH (08:34)
[2022-07-20] MEDS: predniSONE 5 MG TAB PO SCH ×2 (08:35→20:04)
[2022-07-20] MEDS: POLYETHYLENE (MIRALAX) 17 GM PACK PO SCH (08:35)
[2022-07-20] MEDS: PANTOprazole 40 MG TAB PO SCH (08:35)
[2022-07-20 08:50] LABS: Hematocrit (blood only) 27.3 % (40.1-51.0); Hemoglobin 9.1 g/dl (14.0-18.0); Mean Corpuscular Hemoglobin 26.8 pg (25.0-34.0); Mean Corpuscular Hgb Conc 33.3 g/dL (32.0-36.0); Mean Corpuscular Volume 80.3 fL (80.0-100.0); Mean Platelet Volume 9.1 fL (9.4-12.4); Nucleated RBC # (auto) 0.04 K/uL (0-0); Nucleated RBC % (auto) 0.5 %; Platelet Count 189 K/uL (130-400); RDW Coefficient of Variation 17.8 % (11.5-14.5); RDW Standard Deviation 52.2 fL (36.4-46.3); White Blood Count 8.28 K/ul (4.8-10.8)
[2022-07-20 09:12] LABS: BUN Creatinine Ratio 21.2 (10-20); Calcium 6.7 mg/dl (8.5-10.1); Creatinine Clr Calc Pharmacy 54.1 ml/min; Est GFR (Non-African American) 58.6 ml/min; Potassium 3.9 mmol/L (3.5-5.1)
--- NOTE | 2022-07-20 14:21 | Hospitalist Progress Note ---
Date of Service July 20, 2022 Assessment & Plan (1) Prostate cancer metastatic to bone: Plan: - Progressive prostate cancer despite multiple tx including enzalutamide, olaparib, Doxil Taxol, carbo as a Taxol. - Most severe pain suspect 2/2 bony metastasis at L buttock/hip Inadequate control with fentanyl 50 mcg every 3 days, oxycodone 20 mg every 4every 6. Increased to fent 75mcg patch and scaled hydromorphine. - Rad/onc and pain management consulted - Continue multimodal pain control. Tylenol [dose reduced], fentanyl patch, and scaled breakthrough morphine - Patient tolerating palliative radiation therapy, another session scheduled for today -Palliative on board (2) Acute pain of left hip: Plan: L Hip Pain -XR: 1. No acute fracture or dislocation within the pelvis or hips.2. Multifocal osteoblastic metastatic disease again noted. -Increased fentanyl patch from 50 up to 75, oral analgesia converted to IV, continue to follow. Palliative consulted, radiation oncology also consulted? If patient can receive palliative radiation while inpatient, was scheduled for this next week. We will hold Dex pending evaluation, continue baseline prednisone -MRI has been done, no evidence of spinal stenosis but Diffuse osseous metastatic disease again noted. -Palliative on board for pain mgt, -Radiation oncology also on consult, continue palliative radiation (3) Hypertension: Plan: Continue clonidine, metoprolol BP under good control (4) Hydronephrosis: Plan: Found to have moderate-severe hydronephrosis on MRI He is day 1 s/p cystoscopy and bilateral stents placement Urology on board (5) YASSINE (acute kidney injury): Plan: MRI shows evidence of hydronephrosis Now resolved appreciate nephrology and urology (6) Anemia: Plan: Hb 9 post transfusion Plan Plan DVT prophylaxis: Defer Lovenox in the setting of YASSINE/unclear renal baseline. Heparin Disposition: Medical/telemetry Diet: Regular, nutrition consult placed to maximize calories Full code, discussed with patient. See goals of care above Patient will need placement after hospital stay. SNF or rehab Declining functional capacity, he lives alone Admission and Anticipated Discharge Date Admission Date: July 13, 2022 Subjective patient seen and examined, no new complaints, weak, but tolerating radiation Review of Systems Review of Systems: All systems reviewed are negative, apart from the ones contained in the history. Physical Exam Physical Exam: The patient is awake, alert and oriented 3, well developed and well nourished, normocephalic and atraumatic, lying in bed and in no acute distress. HEENT--PERRL, EOMI, mucous membranes and oropharynx mildly dry, poor dentition Neck--supple. No JVD. No bruits. Thyroid normal, trachea midline, no adenopathy. Heart--normal S1 and S2. No murmurs, rubs or gallops. Lungs--clear bilaterally, no respiratory distress, no accessory muscle use. Abdomen--normal bowel sounds and soft. Mild epigastric and left sided abdominal pain Extremities--no cyanosis or clubbing. No edema. Dermatologic--normal skin turgor, normal color, no abnormal lymph nodes, no rash. Neurologic--cranial nerves II through XII grossly intact. Rheumatologic--normal range of motion. Psychiatric--normal affect. Results & Data Results & Data ([facility]) Vital Signs (Past 12 Hours) Vital Signs Temp Pulse Pulse Resp BP Pulse Ox O2 Del Method 07/20/22 11:20 98.2 F 84 18 110/74 97 Room Air 07/20/22 07:53 98.1 F 85 16 113/77 98 Room Air 07/20/22 07:31 98.1 F 84 18 110/76 97 Room Air PG Care Time/CCT Total # of Minutes Spent Total Time Spent with Patient: Total time spent is greater than 50% in coordination of care (as documented) at patient's floor/unit and/or counseling patient: Coding Level of Care Code 04570 SUB INP/OBS CARE 2/35MIN Diagnoses Prostate cancer metastatic to bone C61; C79.51 Acute pain of left hip M25.552 Hypertension I10 Hydronephrosis N13.30 YASSINE (acute kidney injury) N17.9 Anemia D64.9 Anemia type: unspecified type Time Spent (min) 35 (1) Anemia Anemia type: unspecified type Qualified Code(s): D64.9 - Anemia, unspecified
[2022-07-20] MEDS: ACETAMINOPHEN 325 MG TAB PO PRN (20:03)
[2022-07-21] MEDS: SODIUM CHLORIDE 0.9% 1000ML 1,000 ML IV SCH ×2 (00:54→13:32)
[2022-07-21] MEDS: CHECK fentaNYL PATCH PLACEMENT SCH ×4 (00:55→23:00)
[2022-07-21] MEDS: HYDROmorphone INJ 1 MG/ML SYRINGE IV PRN ×3 (08:08→20:48)
[2022-07-21] MEDS: ONDANSETRON INJ 2 MG/ML 2 ML VIAL IV PRN (08:08)
[2022-07-21] MEDS: predniSONE 5 MG TAB PO SCH ×2 (09:13→20:41)
[2022-07-21] MEDS: MAGNESIUM OXIDE 400 MG TAB PO SCH ×2 (09:13→20:41)
[2022-07-21] MEDS: PANTOprazole 40 MG TAB PO SCH (09:13)
[2022-07-21] MEDS: METOPROLOL SUCC 50MG EXT REL TAB PO SCH (09:13)
[2022-07-21] MEDS: cloNIDine HCL 0.1 MG TAB PO SCH ×3 (09:13→20:41)
[2022-07-21] MEDS: CYCLOBENZAPRINE HCL 10 MG TAB PO SCH ×2 (09:13→20:41)
[2022-07-21] MEDS: POLYETHYLENE (MIRALAX) 17 GM PACK PO SCH (09:17)
[2022-07-21] MEDS: LIDOCAINE 5% 1 PATCH TD SCH (09:17)
[2022-07-21] MEDS: HEPARIN SOD 5,000 UNIT/0.5 ML VIAL SQ SCH ×2 (09:17→20:41)
[2022-07-21] MEDS: fentaNYL 100 MCG/HR TDSY TD SCH (12:51)
--- NOTE | 2022-07-21 13:48 | Hospitalist Progress Note ---
Date of Service July 21, 2022 Assessment & Plan (1) Prostate cancer metastatic to bone: Plan: - patient has a history of prostate cancer, -Admitted with worsening pain and Progressive prostate cancer despite multiple tx including enzalutamide, olaparib, Doxil Taxol, carbo as a Taxol. - Most severe pain suspect 2/2 bony metastasis at L buttock/hip Inadequate control with fentanyl 50 mcg every 3 days, oxycodone 20 mg every 4every 6. Increased to fent 75mcg patch and scaled hydromorphine. - Rad/onc and pain management consulted - Continue multimodal pain control. Tylenol [dose reduced], fentanyl patch, and scaled breakthrough morphine - Patient tolerating palliative radiation therapy -Palliative on board (2) Acute pain of left hip: Plan: L Hip Pain -XR: 1. No acute fracture or dislocation within the pelvis or hips.2. Multifocal osteoblastic metastatic disease again noted. -Increased fentanyl patch from 50 up to 75, oral analgesia converted to IV, continue to follow. Palliative consulted, radiation oncology also consulted? If patient can receive palliative radiation while inpatient, was scheduled for this next week. We will hold Dex pending evaluation, continue baseline prednisone -MRI has been done, no evidence of spinal stenosis but Diffuse osseous metastatic disease again noted. -Palliative on board for pain mgt, -Radiation oncology also on consult, continue palliative radiation (3) Hypertension: Plan: Continue clonidine, metoprolol BP under good control (4) Hydronephrosis: Plan: Found to have moderate-severe hydronephrosis on MRI He is day 1 s/p cystoscopy and bilateral stents placement Urology on board (5) YASSINE (acute kidney injury): Plan: MRI shows evidence of hydronephrosis Now resolved appreciate nephrology and urology (6) Anemia: Plan: Hb stable post transfusion Plan Plan DVT prophylaxis: Defer Lovenox in the setting of YASSINE/unclear renal baseline. Heparin Disposition: Medical/telemetry Diet: Regular, nutrition consult placed to maximize calories Full code, discussed with patient. See goals of care above Patient will need placement after hospital stay. SNF or rehab Declining functional capacity, he lives alone Admission and Anticipated Discharge Date Admission Date: July 13, 2022 Subjective patient seen and examined, no new complaints, weak, but in good spirits Review of Systems Review of Systems: All systems reviewed are negative, apart from the ones contained in the history. Physical Exam Physical Exam: The patient is awake, alert and oriented 3, chronically ill looking HEENT--PERRL, EOMI, mucous membranes and oropharynx mildly dry, poor dentition Neck--supple. No JVD. No bruits. Thyroid normal, trachea midline, no adenopathy. Heart--normal S1 and S2. No murmurs, rubs or gallops. Lungs--clear bilaterally, no respiratory distress, no accessory muscle use. Abdomen--normal bowel sounds and soft. Mild epigastric and left sided abdominal pain Extremities--no cyanosis or clubbing. No edema. Dermatologic--normal skin turgor, normal color, no abnormal lymph nodes, no rash. Neurologic--cranial nerves II through XII grossly intact. Rheumatologic--normal range of motion. Psychiatric--normal affect. Results & Data Results & Data ([facility]) Vital Signs (Past 12 Hours) Vital Signs Temp Pulse Resp BP Pulse Ox O2 Del Method 07/21/22 07:45 98.4 F 89 16 154/93 H 96 Room Air PG Care Time/CCT Total # of Minutes Spent Total Time Spent with Patient: Total time spent is greater than 50% in coordination of care (as documented) at patient's floor/unit and/or counseling patient: Coding Level of Care Code 60867 SUB INP/OBS CARE 2/35MIN Diagnoses Prostate cancer metastatic to bone C61; C79.51 Acute pain of left hip M25.552 Hypertension I10 Hydronephrosis N13.30 YASSINE (acute kidney injury) N17.9 Anemia D64.9 Anemia type: unspecified type Time Spent (min) 35 (1) Anemia Anemia type: unspecified type Qualified Code(s): D64.9 - Anemia, unspecified
[2022-07-22] MEDS: SODIUM CHLORIDE 0.9% 1000ML 1,000 ML IV SCH ×2 (01:19→14:37)
[2022-07-22] MEDS: HYDROmorphone INJ 1 MG/ML SYRINGE IV PRN ×4 (01:22→21:02)
[2022-07-22] MEDS: ONDANSETRON INJ 2 MG/ML 2 ML VIAL IV PRN ×2 (08:08→21:06)
[2022-07-22] MEDS: cloNIDine HCL 0.1 MG TAB PO SCH ×3 (10:03→20:57)
[2022-07-22] MEDS: CYCLOBENZAPRINE HCL 10 MG TAB PO SCH ×2 (10:03→20:57)
[2022-07-22] MEDS: MAGNESIUM OXIDE 400 MG TAB PO SCH ×2 (10:04→20:57)
[2022-07-22] MEDS: CHECK fentaNYL PATCH PLACEMENT SCH ×2 (10:04→16:15)
[2022-07-22] MEDS: predniSONE 5 MG TAB PO SCH ×2 (10:04→20:57)
[2022-07-22] MEDS: PANTOprazole 40 MG TAB PO SCH (10:04)
[2022-07-22] MEDS: POLYETHYLENE (MIRALAX) 17 GM PACK PO SCH (10:04)
[2022-07-22] MEDS: METOPROLOL SUCC 50MG EXT REL TAB PO SCH (10:04)
[2022-07-22] MEDS: LIDOCAINE 5% 1 PATCH TD SCH (10:04)
[2022-07-22] MEDS: HEPARIN SOD 5,000 UNIT/0.5 ML VIAL SQ SCH ×2 (10:05→20:58)
--- NOTE | 2022-07-22 13:04 | Hospitalist Progress Note ---
Date of Service July 22, 2022 Assessment & Plan (1) Prostate cancer metastatic to bone: Plan: - patient has a history of prostate cancer, -Admitted with worsening pain and Progressive prostate cancer despite multiple tx including enzalutamide, olaparib, Doxil Taxol, carbo as a Taxol. - Most severe pain suspect 2/2 bony metastasis at L buttock/hip Inadequate control with fentanyl 50 mcg every 3 days, oxycodone 20 mg every 4every 6. Increased to fent 75mcg patch and scaled hydromorphine. - Rad/onc and pain management consulted - Continue multimodal pain control. Tylenol [dose reduced], fentanyl patch, and scaled breakthrough morphine - Patient tolerating palliative radiation therapy -Palliative on board (2) Acute pain of left hip: Plan: L Hip Pain -XR: 1. No acute fracture or dislocation within the pelvis or hips.2. Multifocal osteoblastic metastatic disease again noted. -Increased fentanyl patch from 50 up to 75, oral analgesia converted to IV, continue to follow. Palliative consulted, radiation oncology also consulted? If patient can receive palliative radiation while inpatient, was scheduled for this next week. We will hold Dex pending evaluation, continue baseline prednisone -MRI has been done, no evidence of spinal stenosis but Diffuse osseous metastatic disease again noted. -Palliative on board for pain mgt, -Radiation oncology also on consult, continue palliative radiation (3) Hypertension: Plan: Continue clonidine, metoprolol BP under good control (4) Hydronephrosis: Plan: Found to have moderate-severe hydronephrosis on MRI He is day 1 s/p cystoscopy and bilateral stents placement Urology on board (5) YASSINE (acute kidney injury): Plan: MRI shows evidence of hydronephrosis Now resolved appreciate nephrology and urology (6) Anemia: Plan: Hb stable post transfusion Plan Plan DVT prophylaxis: Defer Lovenox in the setting of YASSINE/unclear renal baseline. Heparin Disposition: Medical/telemetry Diet: Regular, nutrition consult placed to maximize calories Full code, discussed with patient. See goals of care above Patient will need placement after hospital stay. SNF or rehab Declining functional capacity, he lives alone Admission and Anticipated Discharge Date Admission Date: July 13, 2022 Subjective patient seen and examined, no new complaints, weak, but in good spirits, no new complaints Review of Systems Review of Systems: All systems reviewed are negative, apart from the ones contained in the history. Physical Exam Physical Exam: The patient is awake, alert and oriented 3, chronically ill looking HEENT--PERRL, EOMI, mucous membranes and oropharynx mildly dry, poor dentition Neck--supple. No JVD. No bruits. Thyroid normal, trachea midline, no adenopathy. Heart--normal S1 and S2. No murmurs, rubs or gallops. Lungs--clear bilaterally, no respiratory distress, no accessory muscle use. Abdomen--normal bowel sounds and soft. Mild epigastric and left sided abdominal pain Extremities--no cyanosis or clubbing. No edema. Dermatologic--normal skin turgor, normal color, no abnormal lymph nodes, no rash. Neurologic--cranial nerves II through XII grossly intact. Rheumatologic--normal range of motion. Psychiatric--normal affect. Results & Data Results & Data ([facility]) Vital Signs (Past 12 Hours) Vital Signs Temp Pulse Resp BP Pulse Ox O2 Del Method 07/22/22 07:46 98.4 F 89 16 149/88 H 96 Room Air PG Care Time/CCT Total # of Minutes Spent Total Time Spent with Patient: Total time spent is greater than 50% in coordination of care (as documented) at patient's floor/unit and/or counseling patient: Coding Level of Care Code 38133 SUB INP/OBS CARE 2/35MIN Diagnoses Prostate cancer metastatic to bone C61; C79.51 Acute pain of left hip M25.552 Hypertension I10 Hydronephrosis N13.30 YASSINE (acute kidney injury) N17.9 Anemia D64.9 Anemia type: unspecified type Time Spent (min) 35 (1) Anemia Anemia type: unspecified type Qualified Code(s): D64.9 - Anemia, unspecified
[2022-07-23] MEDS: CHECK fentaNYL PATCH PLACEMENT SCH ×4 (00:16→23:14)
[2022-07-23] MEDS: HYDROmorphone INJ 1 MG/ML SYRINGE IV PRN ×5 (01:53→23:43)
[2022-07-23] MEDS: SODIUM CHLORIDE 0.9% 1000ML 1,000 ML IV SCH ×3 (02:33→15:57)
[2022-07-23] MEDS: CYCLOBENZAPRINE HCL 10 MG TAB PO SCH ×2 (09:24→20:50)
[2022-07-23] MEDS: cloNIDine HCL 0.1 MG TAB PO SCH ×3 (09:24→20:52)
[2022-07-23] MEDS: PANTOprazole 40 MG TAB PO SCH (09:24)
[2022-07-23] MEDS: METOPROLOL SUCC 50MG EXT REL TAB PO SCH (09:24)
[2022-07-23] MEDS: HEPARIN SOD 5,000 UNIT/0.5 ML VIAL SQ SCH ×2 (09:24→20:50)
[2022-07-23] MEDS: LIDOCAINE 5% 1 PATCH TD SCH (09:25)
[2022-07-23] MEDS: MAGNESIUM OXIDE 400 MG TAB PO SCH ×2 (09:25→20:50)
[2022-07-23] MEDS: predniSONE 5 MG TAB PO SCH ×2 (09:25→20:49)
[2022-07-23] MEDS: POLYETHYLENE (MIRALAX) 17 GM PACK PO SCH (09:25)
--- NOTE | 2022-07-23 12:06 | Hospitalist Progress Note ---
Date of Service July 23, 2022 Assessment & Plan (1) Prostate cancer metastatic to bone: Plan: - patient has a history of prostate cancer, -Admitted with worsening pain and Progressive prostate cancer despite multiple tx including enzalutamide, olaparib, Doxil Taxol, carbo as a Taxol. - Most severe pain suspect 2/2 bony metastasis at L buttock/hip Inadequate control with fentanyl 50 mcg every 3 days, oxycodone 20 mg every 4every 6. Increased to fent 100mcg patch and scaled hydromorphine. - Rad/onc and pain management consulted - Continue multimodal pain control. Tylenol [dose reduced], fentanyl patch, and scaled breakthrough morphine - Patient tolerating palliative radiation therapy -Palliative on board (2) Acute pain of left hip: Plan: L Hip Pain -XR: 1. No acute fracture or dislocation within the pelvis or hips.2. Multifocal osteoblastic metastatic disease again noted. -Increased fentanyl patch from 50 up to 75, oral analgesia converted to IV, continue to follow. Palliative consulted, radiation oncology also consulted? If patient can receive palliative radiation while inpatient, was scheduled for this next week. We will hold Dex pending evaluation, continue baseline prednisone -MRI has been done, no evidence of spinal stenosis but Diffuse osseous metastatic disease again noted. -Palliative on board for pain mgt, -Radiation oncology also on consult, continue palliative radiation (3) Hypertension: Plan: Continue clonidine, metoprolol BP under good control (4) Hydronephrosis: Plan: Found to have moderate-severe hydronephrosis on MRI He is day 1 s/p cystoscopy and bilateral stents placement Urology on board (5) YASSINE (acute kidney injury): Plan: MRI shows evidence of hydronephrosis Now resolved appreciate nephrology and urology (6) Anemia: Plan: Hb stable post transfusion Plan Plan DVT prophylaxis: Defer Lovenox in the setting of YASSINE/unclear renal baseline. Heparin Disposition: Medical/telemetry Diet: Regular, nutrition consult placed to maximize calories Full code, discussed with patient. See goals of care above Patient will need placement after hospital stay. will look for a SNF facility that can take him and provide transport for his remaining radiation therapy treatment Declining functional capacity, he lives alone Admission and Anticipated Discharge Date Admission Date: July 13, 2022 Subjective patient seen and examined, no new complaints, weak, but in good spirits, no new complaints, for radiation therapy today Review of Systems Review of Systems: All systems reviewed are negative, apart from the ones contained in the history. Physical Exam Physical Exam: The patient is awake, alert and oriented 3, chronically ill looking HEENT--PERRL, EOMI, mucous membranes and oropharynx mildly dry, poor dentition Neck--supple. No JVD. No bruits. Thyroid normal, trachea midline, no adenopathy. Heart--normal S1 and S2. No murmurs, rubs or gallops. Lungs--clear bilaterally, no respiratory distress, no accessory muscle use. Abdomen--normal bowel sounds and soft. Mild epigastric and left sided abdominal pain Extremities--no cyanosis or clubbing. No edema. Dermatologic--normal skin turgor, normal color, no abnormal lymph nodes, no rash. Neurologic--cranial nerves II through XII grossly intact. Rheumatologic--normal range of motion. Psychiatric--normal affect. Results & Data Results & Data ([facility]) Vital Signs (Past 12 Hours) Vital Signs Temp Pulse Resp BP Pulse Ox O2 Del Method 07/23/22 11:32 98.1 F 89 18 118/89 96 Room Air 07/23/22 07:38 98.4 F 93 H 18 128/86 97 Room Air PG Care Time/CCT Total # of Minutes Spent Total Time Spent with Patient: Total time spent is greater than 50% in coordination of care (as documented) at patient's floor/unit and/or counseling patient: Coding Level of Care Code 45278 SUB INP/OBS CARE 2/35MIN Diagnoses Prostate cancer metastatic to bone C61; C79.51 Acute pain of left hip M25.552 Hypertension I10 Hydronephrosis N13.30 YASSINE (acute kidney injury) N17.9 Anemia D64.9 Anemia type: unspecified type Time Spent (min) 35 (1) Anemia Anemia type: unspecified type Qualified Code(s): D64.9 - Anemia, unspecified
[2022-07-24] MEDS: SODIUM CHLORIDE 0.9% 1000ML 1,000 ML IV SCH (04:09)
[2022-07-24] MEDS: HYDROmorphone INJ 1 MG/ML SYRINGE IV PRN ×4 (04:10→21:31)
[2022-07-24] MEDS: CHECK fentaNYL PATCH PLACEMENT SCH ×2 (08:01→16:26)
[2022-07-24] MEDS: cloNIDine HCL 0.1 MG TAB PO SCH ×3 (08:10→22:15)
[2022-07-24] MEDS: MAGNESIUM OXIDE 400 MG TAB PO SCH ×2 (08:11→22:15)
[2022-07-24] MEDS: METOPROLOL SUCC 50MG EXT REL TAB PO SCH (08:11)
[2022-07-24] MEDS: LIDOCAINE 5% 1 PATCH TD SCH (08:11)
[2022-07-24] MEDS: POLYETHYLENE (MIRALAX) 17 GM PACK PO SCH (08:12)
[2022-07-24] MEDS: predniSONE 5 MG TAB PO SCH ×2 (08:12→22:16)
[2022-07-24] MEDS: PANTOprazole 40 MG TAB PO SCH (08:12)
[2022-07-24] MEDS: CYCLOBENZAPRINE HCL 10 MG TAB PO SCH ×2 (08:13→22:15)
[2022-07-24] MEDS: HEPARIN SOD 5,000 UNIT/0.5 ML VIAL SQ SCH ×2 (08:15→22:17)
[2022-07-24] MEDS: fentaNYL 100 MCG/HR TDSY TD SCH (11:34)
--- NOTE | 2022-07-24 11:56 | Hospitalist Progress Note ---
Date of Service July 24, 2022 Assessment & Plan (1) Prostate cancer metastatic to bone: Plan: - patient has a history of prostate cancer, -Admitted with worsening pain and Progressive prostate cancer despite multiple tx including enzalutamide, olaparib, Doxil Taxol, carbo as a Taxol. - Most severe pain suspect 2/2 bony metastasis at L buttock/hip Inadequate control with fentanyl 50 mcg every 3 days, oxycodone 20 mg every 4every 6. Increased to fent 100mcg patch and scaled hydromorphine. - Rad/onc and pain management consulted - Continue multimodal pain control. Tylenol [dose reduced], fentanyl patch, and scaled breakthrough morphine - Patient tolerating palliative radiation therapy -Palliative on board (2) Acute pain of left hip: Plan: L Hip Pain -XR: 1. No acute fracture or dislocation within the pelvis or hips.2. Multifocal osteoblastic metastatic disease again noted. -Increased fentanyl patch from 50 up to 75, oral analgesia converted to IV, continue to follow. Palliative consulted, radiation oncology also consulted? If patient can receive palliative radiation while inpatient, was scheduled for this next week. We will hold Dex pending evaluation, continue baseline prednisone -MRI has been done, no evidence of spinal stenosis but Diffuse osseous metastatic disease again noted. -Palliative on board for pain mgt, -Radiation oncology also on consult, continue palliative radiation (3) Hypertension: Plan: Continue clonidine, metoprolol BP under good control (4) Hydronephrosis: Plan: Found to have moderate-severe hydronephrosis on MRI He is s/p cystoscopy and bilateral stents placement Urology on board, outpatient follow up (5) YASSINE (acute kidney injury): Plan: MRI showed evidence of hydronephrosis Now resolved following stent placement appreciate nephrology and urology (6) Anemia: Plan: Hb stable post transfusion Plan Plan DVT prophylaxis: Defer Lovenox in the setting of YASSINE/unclear renal baseline. Heparin Disposition: Medical/telemetry Diet: Regular, nutrition consult placed to maximize calories Full code, discussed with patient. See goals of care above Patient will need placement after hospital stay. will look for a SNF facility that can take him and provide transport for his remaining radiation therapy treatment Declining functional capacity, he lives alone Admission and Anticipated Discharge Date Admission Date: July 13, 2022 Subjective patient seen and examined, no new complaints, for radiation therapy today Review of Systems Review of Systems: All systems reviewed are negative, apart from the ones contained in the history. Physical Exam Physical Exam: The patient is awake, alert and oriented 3, chronically ill looking HEENT--PERRL, EOMI, mucous membranes and oropharynx mildly dry, poor dentition Neck--supple. No JVD. No bruits. Thyroid normal, trachea midline, no adenopathy. Heart--normal S1 and S2. No murmurs, rubs or gallops. Lungs--clear bilaterally, no respiratory distress, no accessory muscle use. Abdomen--normal bowel sounds and soft. Mild epigastric and left sided abdominal pain Extremities--bilateral leg edema Dermatologic--normal skin turgor, normal color, no abnormal lymph nodes, no rash. Neurologic--cranial nerves II through XII grossly intact. Rheumatologic--normal range of motion. Psychiatric--normal affect. Results & Data Results & Data ([facility]) Vital Signs (Past 12 Hours) Vital Signs Temp Pulse Resp BP Pulse Ox O2 Del Method 07/24/22 07:41 97.9 F 71 16 128/84 96 Room Air PG Care Time/CCT Total # of Minutes Spent Total Time Spent with Patient: Total time spent is greater than 50% in coordination of care (as documented) at patient's floor/unit and/or counseling patient: Coding Level of Care Code 68663 SUB INP/OBS CARE 2/35MIN Diagnoses Prostate cancer metastatic to bone C61; C79.51 Acute pain of left hip M25.552 Hypertension I10 Hydronephrosis N13.30 YASSINE (acute kidney injury) N17.9 Anemia D64.9 Anemia type: unspecified type Time Spent (min) 35 (1) Anemia Anemia type: unspecified type Qualified Code(s): D64.9 - Anemia, unspecified
[2022-07-25] MEDS: CHECK fentaNYL PATCH PLACEMENT SCH ×3 (00:01→16:50)
[2022-07-25] MEDS: HYDROmorphone INJ 1 MG/ML SYRINGE IV PRN ×6 (02:34→20:07)
[2022-07-25] MEDS: cloNIDine HCL 0.1 MG TAB PO SCH ×3 (09:07→20:04)
[2022-07-25] MEDS: PANTOprazole 40 MG TAB PO SCH (09:08)
[2022-07-25] MEDS: METOPROLOL SUCC 50MG EXT REL TAB PO SCH (09:08)
[2022-07-25] MEDS: predniSONE 5 MG TAB PO SCH ×2 (09:08→20:05)
[2022-07-25] MEDS: MAGNESIUM OXIDE 400 MG TAB PO SCH ×2 (09:08→20:04)
[2022-07-25] MEDS: CYCLOBENZAPRINE HCL 10 MG TAB PO SCH ×2 (09:08→20:04)
[2022-07-25] MEDS: LIDOCAINE 5% 1 PATCH TD SCH (09:08)
[2022-07-25] MEDS: HEPARIN SOD 5,000 UNIT/0.5 ML VIAL SQ SCH ×2 (09:09→20:05)
[2022-07-25] MEDS: ONDANSETRON INJ 2 MG/ML 2 ML VIAL IV PRN ×2 (09:15→20:08)
[2022-07-25] MEDS: POLYETHYLENE (MIRALAX) 17 GM PACK PO SCH (09:16)
[2022-07-25] MEDS ORDERED: FUROSEMIDE 40 MG/4 ML VIAL IV ONE (10:45)
[2022-07-25] MEDS: HEPARIN 100 UNIT/ML 5ML FLUSH FLUSH PRN ×2 (12:29→20:06)
--- NOTE | 2022-07-25 13:12 | Hospitalist Progress Note ---
Date of Service July 25, 2022 Assessment & Plan (1) Prostate cancer metastatic to bone: Plan: - patient has a history of prostate cancer, -Admitted with worsening pain and Progressive prostate cancer despite multiple tx including enzalutamide, olaparib, Doxil Taxol, carbo as a Taxol. - Most severe pain suspect 2/2 bony metastasis at L buttock/hip Inadequate control with fentanyl 50 mcg every 3 days, oxycodone 20 mg every 4every 6. Increased to fent 100mcg patch and scaled hydromorphine. - Rad/onc and pain management consulted - Continue multimodal pain control. Tylenol [dose reduced], fentanyl patch, and scaled breakthrough morphine - Patient tolerating palliative radiation therapy, scheduled for 10 sessions, has received 6 sessions so far -SNF will consider him when he is close to the end of his therapy, so they dont have to bear the burden of transporting him to and fro radiation -Palliative on board (2) Acute pain of left hip: Plan: L Hip Pain -XR: 1. No acute fracture or dislocation within the pelvis or hips.2. Multifocal osteoblastic metastatic disease again noted. -Increased fentanyl patch from 50 up to 75, oral analgesia converted to IV, continue to follow. Palliative consulted, radiation oncology also consulted? If patient can receive palliative radiation while inpatient, was scheduled for this next week. We will hold Dex pending evaluation, continue baseline prednisone -MRI has been done, no evidence of spinal stenosis but Diffuse osseous metastatic disease again noted. -Palliative on board for pain mgt, -Radiation oncology also on consult, continue palliative radiation (3) Hypertension: Plan: Continue clonidine, metoprolol BP under good control (4) Hydronephrosis: Plan: Found to have moderate-severe hydronephrosis on MRI He is s/p cystoscopy and bilateral stents placement Urology on board, outpatient follow up (5) YASSINE (acute kidney injury): Plan: MRI showed evidence of hydronephrosis Now resolved following stent placement appreciate nephrology and urology (6) Anemia: Plan: Hb stable post transfusion Plan Plan DVT prophylaxis: Defer Lovenox in the setting of YASSINE/unclear renal baseline. Heparin Disposition: Medical/telemetry Diet: Regular, nutrition consult placed to maximize calories Full code, discussed with patient. See goals of care above Patient will need placement after hospital stay. SNF will consider him when he is close to the end of his therapy, so they dont have to bear the burden of transporting him to and fro radiation Today is day 6 of therapy, a total of 10 sessions planned Admission and Anticipated Discharge Date Admission Date: July 13, 2022 Subjective patient seen and examined, no new complaints, for radiation therapy today Review of Systems Review of Systems: All systems reviewed are negative, apart from the ones contained in the history. Physical Exam Physical Exam: The patient is awake, alert and oriented 3, chronically ill looking HEENT--PERRL, EOMI, mucous membranes and oropharynx mildly dry, poor dentition Neck--supple. No JVD. No bruits. Thyroid normal, trachea midline, no adenopathy. Heart--normal S1 and S2. No murmurs, rubs or gallops. Lungs--clear bilaterally, no respiratory distress, no accessory muscle use. Abdomen--normal bowel sounds and soft. Mild epigastric and left sided abdominal pain Extremities--bilateral leg edema Dermatologic--normal skin turgor, normal color, no abnormal lymph nodes, no rash. Neurologic--cranial nerves II through XII grossly intact. Rheumatologic--normal range of motion. Psychiatric--normal affect. Results & Data Results & Data ([facility]) Vital Signs (Past 12 Hours) Vital Signs Temp Pulse Pulse Resp BP Pulse Ox O2 Del Method 07/25/22 11:52 97.3 F L 80 12 118/76 98 Room Air 07/25/22 07:59 97.9 F 88 88 15 127/87 97 Room Air PG Care Time/CCT Total # of Minutes Spent Total Time Spent with Patient: Total time spent is greater than 50% in coordination of care (as documented) at patient's floor/unit and/or counseling patient: Coding Level of Care Code 24044 SUB INP/OBS CARE 2/35MIN Diagnoses Prostate cancer metastatic to bone C61; C79.51 Acute pain of left hip M25.552 Hypertension I10 Hydronephrosis N13.30 YASSINE (acute kidney injury) N17.9 Anemia D64.9 Anemia type: unspecified type Time Spent (min) 35 (1) Anemia Anemia type: unspecified type Qualified Code(s): D64.9 - Anemia, unspecified
[2022-07-26] MEDS: CHECK fentaNYL PATCH PLACEMENT SCH ×4 (00:01→23:29)
[2022-07-26] MEDS: HYDROmorphone INJ 1 MG/ML SYRINGE IV PRN ×6 (01:21→23:29)
--- NOTE | 2022-07-26 07:09 | Ultrasound Report ---
US pelvic limited HISTORY: 62 years-old Male new onset pubic pain and swelling acute onset pelvic pain with soft tissu e swelling. Radiation therapy in a patient with prostate cancer. COMPARISON: Radiation scan July 17, 2022 TECHNIQUE: Multiple real-time sonographic images of the deep pelvic structures were obtained assessin g grayscale appearance. FINDINGS: Trace pelvic ascites. No fluid collection identified surrounding the pubic symphysis. Decompressed or bladder with Matamoros catheter. IMPRESSION: No significant change compared to the CT radiation study obtained 9 days earlier. Trace f ree pelvic fluid with otherwise unremarkable exam. ACT 112: Negative or not required by law. The above report was generated using voice recognition software. It may contain grammatical, syntax o r spelling errors. Electronically signed by: Jemal Adan M.D. 07/26/2022 7:08 AM
--- NOTE | 2022-07-26 07:16 | Ultrasound Report ---
US scrotum/testicle CLINICAL HISTORY: 62 years-old Male with new onset scrotal swelling, hx prostatic radiation. Acute s crotal swelling in a patient with prostate cancer and radiation therapy COMPARISON STUDY: CT radiation scan July 17, 2022 TECHNIQUE: Real-time, grayscale, and color Doppler sonography of the testes and scrotum is performed. Images are reviewed in the transverse and longitudinal planes. FINDINGS: RIGHT HEMISCROTUM: The right testis measures 2.9 x 1.8 x 1.6 cm and the parenchyma appears unremarkab le. No intratesticular mass is seen. Normal-appearing arterial inflow is present within the right delma ticle. The right epididymal head appears normal. No varicocele or hydrocele is identified. Prominent scrotal wall edema. LEFT HEMISCROTUM: The left testis measures 2.8 x 2.0 x 2.2 cm and the parenchyma appears unremarkable . No intratesticular mass is seen. Normal-appearing arterial inflow is present within the left testic le. The left epididymal head appears normal. No varicocele. Trace mildly complex hydrocele. Prominent scrotal wall edema. IMPRESSION: 1. No testicular torsion or mass. 2. Prominent scrotal wall edema has progressively worsened compared to the CT radiation scan obtained 9 days earlier. 3. Trace complex left-sided hydrocele. ACT 112: Negative or not required by law. The above report was generated using voice recognition software. It may contain grammatical, syntax o r spelling errors. Electronically signed by: Jemal Adan M.D. 07/26/2022 7:15 AM
--- NOTE | 2022-07-26 08:12 | Communication Note ---
Date of Service: July 26, 2022 Notified this morning by nurse of new onset scrotal swelling. Went upstairs to assess the patient. He reported swelling started yesterday but acutely worsened today. He denies any pain or saddle numbness. Exam was notable for profound swelling of the testicle, greater on the left. No tenderness to palpation. No tenderness with elevation of scrotum. Noted transillumination of skin when light applied. Ordered scrotal, limited pelvic ultrasound. Results pending. Signed out to daytime attending. Resident Activity Tracking Resident Involvement: Resident Care Provided Care Provided: Adult [facility] Medicine
[2022-07-26] MEDS: HEPARIN SOD 5,000 UNIT/0.5 ML VIAL SQ SCH ×2 (08:55→20:46)
[2022-07-26] MEDS: predniSONE 5 MG TAB PO SCH ×2 (08:55→20:45)
[2022-07-26] MEDS: cloNIDine HCL 0.1 MG TAB PO SCH ×3 (08:55→20:51)
[2022-07-26] MEDS: CYCLOBENZAPRINE HCL 10 MG TAB PO SCH ×2 (08:55→20:46)
[2022-07-26] MEDS: POLYETHYLENE (MIRALAX) 17 GM PACK PO SCH (08:56)
[2022-07-26] MEDS: LIDOCAINE 5% 1 PATCH TD SCH (08:56)
[2022-07-26] MEDS: METOPROLOL SUCC 50MG EXT REL TAB PO SCH (08:56)
[2022-07-26] MEDS: PANTOprazole 40 MG TAB PO SCH (08:56)
[2022-07-26] MEDS: MAGNESIUM OXIDE 400 MG TAB PO SCH ×2 (08:56→20:46)
[2022-07-26] MEDS: ONDANSETRON INJ 2 MG/ML 2 ML VIAL IV PRN ×3 (09:00→18:35)
[2022-07-26] MEDS: HEPARIN 100 UNIT/ML 5ML FLUSH FLUSH PRN ×6 (09:00→23:29)
[2022-07-26 10:39] LABS: Hemoglobin 9.2 g/dl (14.0-18.0); Mean Corpuscular Hemoglobin 26.8 pg (25.0-34.0); Mean Corpuscular Hgb Conc 31.7 g/dL (32.0-36.0); Mean Corpuscular Volume 84.5 fL (80.0-100.0); Mean Platelet Volume 8.8 fL (9.4-12.4); Nucleated RBC # (auto) 0.04 K/uL (0-0); Nucleated RBC % (auto) 0.4 %; Platelet Count 198 K/uL (130-400); RDW Coefficient of Variation 18.7 % (11.5-14.5); RDW Standard Deviation 56.8 fL (36.4-46.3); Red Blood Count 3.43 M/uL (4.63-6.08); White Blood Count 9.93 K/ul (4.8-10.8)
[2022-07-26 11:27] LABS: BUN Creatinine Ratio 12.6 (10-20); Calcium 7.2 mg/dl (8.5-10.1); Creatinine Clr Calc Pharmacy 20.2 ml/min; Est GFR (African American) 20.8 ml/min; Potassium 5.5 mmol/L (3.5-5.1)
--- NOTE | 2022-07-26 14:43 | Hospitalist Progress Note ---
Date of Service July 26, 2022 Assessment & Plan (1) Prostate cancer metastatic to bone: Plan: - patient has a history of prostate cancer, -Admitted with worsening pain and Progressive prostate cancer despite multiple tx including enzalutamide, olaparib, Doxil Taxol, carbo as a Taxol. - Most severe pain suspect 2/2 bony metastasis at L buttock/hip Inadequate control with fentanyl 50 mcg every 3 days, oxycodone 20 mg every 4every 6. Increased to fent 100mcg patch and scaled hydromorphine. - Rad/onc and pain management consulted - Continue multimodal pain control. Tylenol [dose reduced], fentanyl patch, and scaled breakthrough morphine - Patient tolerating palliative radiation therapy, scheduled for 10-15 sessions, has received 8 sessions so far -SNF will consider him when he is close to the end of his therapy, so they dont have to bear the burden of transporting him to and fro radiation -However, patient is getting weaker and most times unable or unwilling to participate in PT -He may have to go home with Hospice at the end of his radiation treatments, instead of snf -Palliative on board (2) Acute pain of left hip: Plan: L Hip Pain -XR: 1. No acute fracture or dislocation within the pelvis or hips.2. Multifocal osteoblastic metastatic disease again noted. -Increased fentanyl patch from 50 up to 75, oral analgesia converted to IV, continue to follow. Palliative consulted, radiation oncology also consulted? If patient can receive palliative radiation while inpatient, was scheduled for this next week. We will hold Dex pending evaluation, continue baseline prednisone -MRI has been done, no evidence of spinal stenosis but Diffuse osseous metastatic disease again noted. -Palliative on board for pain mgt, -Radiation oncology also on consult, continue palliative radiation (3) Hypertension: Plan: Continue clonidine, metoprolol BP under good control (4) Hydronephrosis: Plan: Found to have moderate-severe hydronephrosis on MRI He is s/p cystoscopy and bilateral stents placement Urology on board, outpatient follow up (5) YASSINE (acute kidney injury): Plan: MRI showed evidence of hydronephrosis Now resolved following stent placement appreciate nephrology and urology (6) Anemia: Plan: Hb stable post transfusion (7) Scrotal edema: Plan: worsening scrotal edema no evidence of torsion mild hydrocoele scrotal support, lasix Plan Plan DVT prophylaxis: heparin Disposition: Medical/telemetry Diet: Regular, nutrition consult placed to maximize calories DNR/DNI Initial plan was for SNF after his radiation treatments,however, patient is getting weaker and most times unable or unwilling to participate in PT He may have to go home with Hospice at the end of his radiation treatments, instead of snf Admission and Anticipated Discharge Date Admission Date: July 13, 2022 Subjective patient seen and examined, no new complaints, for radiation therapy today Review of Systems Review of Systems: All systems reviewed are negative, apart from the ones contained in the history. Physical Exam Physical Exam: The patient is awake, alert and oriented 3, chronically ill looking HEENT--PERRL, EOMI, mucous membranes and oropharynx mildly dry, poor dentition Neck--supple. No JVD. No bruits. Thyroid normal, trachea midline, no adenopathy. Heart--normal S1 and S2. No murmurs, rubs or gallops. Lungs--clear bilaterally, no respiratory distress, no accessory muscle use. Abdomen--normal bowel sounds and soft. Mild epigastric and left sided abdominal pain Extremities--bilateral leg edema Dermatologic--normal skin turgor, normal color, no abnormal lymph nodes, no rash. Neurologic--cranial nerves II through XII grossly intact. Rheumatologic--normal range of motion. Psychiatric--normal affect. Results & Data Results & Data ([facility]) Vital Signs (Past 12 Hours) Vital Signs Temp Pulse Resp BP Pulse Ox O2 Del Method 07/26/22 10:11 Room Air 07/26/22 07:38 98.1 F 85 16 124/83 97 Room Air PG Care Time/CCT Total # of Minutes Spent Total Time Spent with Patient: Total time spent is greater than 50% in coordination of care (as documented) at patient's floor/unit and/or counseling patient: Coding Level of Care Code 43466 SUB INP/OBS CARE 2/35MIN Diagnoses Prostate cancer metastatic to bone C61; C79.51 Acute pain of left hip M25.552 Hypertension I10 Hydronephrosis N13.30 YASSINE (acute kidney injury) N17.9 Anemia D64.9 Anemia type: unspecified type Scrotal edema N50.89 Time Spent (min) 35 (1) Anemia Anemia type: unspecified type Qualified Code(s): D64.9 - Anemia, unspecified
[2022-07-27] MEDS: HYDROmorphone INJ 1 MG/ML SYRINGE IV PRN ×5 (02:44→20:57)
[2022-07-27] MEDS: HEPARIN 100 UNIT/ML 5ML FLUSH FLUSH PRN ×7 (02:45→20:57)
[2022-07-27] MEDS ORDERED: FUROSEMIDE 40 MG/4 ML VIAL IV ONE (07:29)
[2022-07-27] MEDS: predniSONE 5 MG TAB PO SCH ×2 (08:28→20:48)
[2022-07-27] MEDS: PANTOprazole 40 MG TAB PO SCH (08:28)
[2022-07-27] MEDS: MAGNESIUM OXIDE 400 MG TAB PO SCH ×2 (08:28→20:48)
[2022-07-27] MEDS: cloNIDine HCL 0.1 MG TAB PO SCH ×3 (08:28→20:47)
[2022-07-27] MEDS: CYCLOBENZAPRINE HCL 10 MG TAB PO SCH ×2 (08:28→20:54)
[2022-07-27] MEDS: HEPARIN SOD 5,000 UNIT/0.5 ML VIAL SQ SCH ×2 (08:28→20:49)
[2022-07-27] MEDS: METOPROLOL SUCC 50MG EXT REL TAB PO SCH (08:28)
[2022-07-27] MEDS: POLYETHYLENE (MIRALAX) 17 GM PACK PO SCH (08:29)
[2022-07-27] MEDS: CHECK fentaNYL PATCH PLACEMENT SCH ×2 (08:29→15:38)
[2022-07-27] MEDS: LIDOCAINE 5% 1 PATCH TD SCH (08:29)
[2022-07-27] MEDS: HYDROmorphone INJ 0.5 MG/0.5 ML SYR IV PRN (10:56)
[2022-07-27] MEDS: ONDANSETRON INJ 2 MG/ML 2 ML VIAL IV PRN ×2 (10:56→17:48)
[2022-07-27] MEDS: fentaNYL 100 MCG/HR TDSY TD SCH (11:48)
--- NOTE | 2022-07-27 12:32 | Hospitalist Progress Note ---
Date of Service July 27, 2022 Assessment & Plan (1) Prostate cancer metastatic to bone: Plan: - patient has a history of prostate cancer, -Admitted with worsening pain and Progressive prostate cancer despite multiple tx including enzalutamide, olaparib, Doxil Taxol, carbo as a Taxol. - Most severe pain suspect 2/2 bony metastasis at L buttock/hip Inadequate control with fentanyl 50 mcg every 3 days, oxycodone 20 mg every 4every 6. Increased to fent 100mcg patch and scaled hydromorphine. - Rad/onc and pain management consulted - Continue multimodal pain control. Tylenol [dose reduced], fentanyl patch, and scaled breakthrough morphine - Patient tolerating palliative radiation therapy, scheduled for 10-15 sessions, has received 9 sessions so far. Last session scheduled for 07/31 -SNF will consider him when he is close to the end of his therapy, so they dont have to bear the burden of transporting him to and fro radiation -However, patient is getting weaker and most times unable or unwilling to participate in PT -He may have to go home with Hospice at the end of his radiation treatments, instead of snf -Palliative on board (2) Acute pain of left hip: Plan: L Hip Pain -XR: 1. No acute fracture or dislocation within the pelvis or hips.2. Multifocal osteoblastic metastatic disease again noted. -Increased fentanyl patch from 50 up to 75, oral analgesia converted to IV, continue to follow. Palliative consulted, radiation oncology also consulted? If patient can receive palliative radiation while inpatient, was scheduled for this next week. We will hold Dex pending evaluation, continue baseline prednisone -MRI has been done, no evidence of spinal stenosis but Diffuse osseous metastatic disease again noted. -Palliative on board for pain mgt, -Radiation oncology also on consult, continue palliative radiation (3) Hypertension: Plan: Continue clonidine, metoprolol BP under good control (4) Hydronephrosis: Plan: Found to have moderate-severe hydronephrosis on MRI He is s/p cystoscopy and bilateral stents placement Urology on board, outpatient follow up (5) YASSINE (acute kidney injury): Plan: MRI showed evidence of hydronephrosis Now resolved following stent placement appreciate nephrology and urology (6) Anemia: Plan: Hb stable post transfusion (7) Scrotal edema: Plan: improving scrotal edema no evidence of torsion mild hydrocoele scrotal support, lasix Plan Plan DVT prophylaxis: heparin Disposition: Medical/telemetry Diet: Regular, nutrition consult placed to maximize calories DNR/DNI Initial plan was for SNF after his radiation treatments,however, patient is getting weaker and most times unable or unwilling to participate in PT He may have to go home with Hospice at the end of his radiation treatments, instead of snf, although [facility] has accepted him Admission and Anticipated Discharge Date Admission Date: July 13, 2022 Subjective patient seen and examined, no new complaints, for radiation therapy today, says scrotal swelling is coming down, but has been weak and unwilling to do much therapy Review of Systems Review of Systems: All systems reviewed are negative, apart from the ones contained in the history. Physical Exam Physical Exam: The patient is awake, alert and oriented 3, chronically ill looking HEENT--PERRL, EOMI, mucous membranes and oropharynx mildly dry, poor dentition Neck--supple. No JVD. No bruits. Thyroid normal, trachea midline, no adenopathy. Heart--normal S1 and S2. No murmurs, rubs or gallops. Lungs--clear bilaterally, no respiratory distress, no accessory muscle use. Abdomen--normal bowel sounds and soft. Mild epigastric and left sided abdominal pain Extremities--bilateral leg edema Dermatologic--normal skin turgor, normal color, no abnormal lymph nodes, no rash. Neurologic--cranial nerves II through XII grossly intact. Rheumatologic--normal range of motion. Psychiatric--normal affect. Results & Data Results & Data ([facility]) Vital Signs (Past 12 Hours) Vital Signs Temp Pulse Resp BP Pulse Ox O2 Del Method 07/27/22 11:39 98.2 F 85 17 110/70 98 Room Air 07/27/22 09:00 Room Air 07/27/22 07:42 97.9 F 92 H 17 120/76 97 Room Air PG Care Time/CCT Total # of Minutes Spent Total Time Spent with Patient: Total time spent is greater than 50% in coordination of care (as documented) at patient's floor/unit and/or counseling patient: Coding Level of Care Code 07919 SUB INP/OBS CARE 2/35MIN Diagnoses Prostate cancer metastatic to bone C61; C79.51 Acute pain of left hip M25.552 Hypertension I10 Hydronephrosis N13.30 YASSINE (acute kidney injury) N17.9 Anemia D64.9 Anemia type: unspecified type Scrotal edema N50.89 Time Spent (min) 35 (1) Anemia Anemia type: unspecified type Qualified Code(s): D64.9 - Anemia, unspecified
[2022-07-27] MEDS ORDERED: HYDROmorphone INJ 0.5 MG/0.5 ML SYR IV PRN (17:32)
[2022-07-27] MEDS: ACETAMINOPHEN 325 MG TAB PO PRN (19:15)
[2022-07-28] MEDS: CHECK fentaNYL PATCH PLACEMENT SCH ×3 (00:24→15:43)
[2022-07-28] MEDS: HEPARIN 100 UNIT/ML 5ML FLUSH FLUSH PRN ×2 (02:49→06:54)
[2022-07-28] MEDS: HYDROmorphone INJ 1 MG/ML SYRINGE IV PRN ×5 (02:50→21:58)
[2022-07-28 07:22] LABS: Hematocrit (blood only) 28.5 % (40.1-51.0); Hemoglobin 9.2 g/dl (14.0-18.0); Mean Corpuscular Hgb Conc 32.3 g/dL (32.0-36.0); Mean Corpuscular Volume 83.6 fL (80.0-100.0); Mean Platelet Volume 8.7 fL (9.4-12.4); Nucleated RBC # (auto) 0.04 K/uL (0-0); Nucleated RBC % (auto) 0.4 %; Platelet Count 199 K/uL (130-400); RDW Coefficient of Variation 18.8 % (11.5-14.5); RDW Standard Deviation 57.7 fL (36.4-46.3); Red Blood Count 3.41 M/uL (4.63-6.08); White Blood Count 11.16 K/ul (4.8-10.8)
[2022-07-28 08:06] LABS: Calcium 7.1 mg/dl (8.5-10.1)
[2022-07-28 08:12] LABS: BUN Creatinine Ratio 13.5 (10-20); Creatinine Clr Calc Pharmacy 16.7 ml/min; Est GFR (African American) 16.5 ml/min; Est GFR (Non-African American) 14.2 ml/min
[2022-07-28] MEDS: METOPROLOL SUCC 50MG EXT REL TAB PO SCH (09:15)
[2022-07-28] MEDS: POLYETHYLENE (MIRALAX) 17 GM PACK PO SCH (09:15)
[2022-07-28] MEDS: cloNIDine HCL 0.1 MG TAB PO SCH ×3 (09:16→21:20)
[2022-07-28] MEDS: PANTOprazole 40 MG TAB PO SCH (09:16)
[2022-07-28] MEDS: MAGNESIUM OXIDE 400 MG TAB PO SCH (09:16)
[2022-07-28] MEDS: predniSONE 5 MG TAB PO SCH ×2 (09:16→21:22)
[2022-07-28] MEDS: CYCLOBENZAPRINE HCL 10 MG TAB PO SCH ×2 (09:17→21:09)
[2022-07-28] MEDS: HEPARIN SOD 5,000 UNIT/0.5 ML VIAL SQ SCH ×2 (09:17→21:21)
[2022-07-28] MEDS: LIDOCAINE 5% 1 PATCH TD SCH (09:17)
[2022-07-28] MEDS ORDERED: STAT IV STA ×2 (10:04→10:06)
[2022-07-28] MEDS ORDERED: PATIROMER CALCIUM SORBITEX 8.4 GM PACK PO STA ×2 (10:08→17:06)
[2022-07-28] MEDS ORDERED: CALCIUM GLUCONATE 10% 1,000 MG in DEXTROSE 5% 50 ML IV ONE (10:15)
--- NOTE | 2022-07-28 10:42 | Hospitalist Progress Note ---
Date of Service July 28, 2022 Assessment & Plan (1) YASSINE (acute kidney injury): Plan: Earlier in the stay the patient had YASSINE due to obstructive uropathy. Had b/l hydronephrosis s/p b/l ureteral stents by urology. Creatinine ultimately normalized to <1.5. Over the last few days his creatinine began to loraine. Today it is now >4. He appears considerably volume contracted. He has weathers in place. Start IVF in the form of bicarbonate drip due to #2 below. Recheck BMP tonight and in am tomorrow. (2) Hyperkalemia: Plan: 2nd to #1. Calcium gluconate x 1 given along with patiromer x 1 this am. Bicarbonate infusion initiated. Repeat BMP late today with minimal improvement in renal function or his K. 2nd dose of patiromer given. BMP am. Moved patient to telemetry due to the high K. (3) Acute dehydration: Plan: failure to thrive/anorexia/poor oral intake in the setting of advanced prostate ca with bony and liver mets. resuming IV fluids. unfortunately, even if we fix the current dehydration, this is likely to happen again in light of advanced, progressive cancer. (4) Prostate cancer metastatic to bone: Plan: patient has a history of advanced, metastatic prostate cancer. Admitted 07/13/22 with worsening pain and progressive stage 4 prostate cancer de spite multiple treatments including enzalutamide, olaparib, Doxil Taxol, carbo. Severe pain L buttock/hip due to diffuse bony mets. Was started on fentanyl patch and titrated to 100mcg q72h while here. Using IV dilaudid prn breakthrough. Rad/onc consulted - offered palliative XRT for pain control. Has received 9 fractions of XRT to L hip to date. Last session 07/31/22. Despite the above the patient states today that he continues with severe pain. Will change his prednisone to dexamethasone 4mg BID. If we can't achieve better control with the above start Dilaudid [employer]. His prognosis is very, very poor in light of the extensive nature of his disease, ARF, failure to thrive, etc. See discussion below. (5) Liver metastases: Plan: marked enlargement of left lobe of liver the lesion was 6.7cm in size in May - likely much, much larger at this time treat pain associated with this (6) Acute pain of left hip: Plan: see #4 above (7) Hypertension: Plan: Continue clonidine, metoprolol (8) Hydronephrosis: Plan: Found to have moderate-severe hydronephrosis this admission s/p cystoscopy and bilateral stents placement appreciate Urology assistance (9) Anemia: Plan: s/p 1 unit PRBCs this admission H/H stable since then anemia 2nd to advanced prostate ca (10) Scrotal edema: Plan: cont weathers pain control last albumin 2.6 about 10 days ago - this also likely contributing Plan DVT prophylaxis: heparin DNR/DNI I spoke with Luannechrista PiresRosette, pt's sister ([phone]) by phone this evening she lives in the [facility] in [place] she understands that her brother is rapidly declining she saw him at [facility] a few weeks ago and he was doing very poorly then I discussed the ARF and high K along with progressive nature of his cancer, ongoing issues w/ pain control, etc. she is hopeful to drive from [place] to [place] in the next 2 days I encouraged that given today's events questions answered today's care constitutes critical care as his ARF and high potassium are life threatening and involved moving him to monitored bed, instituting therapies for high K, etc. total critical care time 40 minutes Admission and Anticipated Discharge Date Admission Date: July 13, 2022 Subjective patient resting in bed / sleeping upon my arrival easily woke up weathers catheter in place patient admits to very, very poor PO intake over the last few days continues with considerable pain in left hip region and upper abdomen despite fentanyl patch + IV dilaudid we discussed his ARF and his high potassium levels I asked him how aggressive he wanted to be with this in light of his declining status he stated "do what you have to do" I explained I would need to transfer him to a monitored bed and start various medications for the high K he denied any cardiopulmonary symptoms - no chest pain, no dyspnea Review of Systems Review of Systems: gen - very weak, fatigued; poor appetite; poor liquid intake cv - no chest pain or orthopnea pulm - no cough or dyspnea GI - ongoing upper abd pain but no vomiting Physical Exam Physical Exam: gen - looks very tired, pale, a/o x 3 mouth - MM very dry; poor dentition neck - no JVD heart - RRR, s1 s2 lungs - CTA b/l abd - liver is markedly enlarged; left lobe of liver is very large, irregular in shape, firm to palpation, and very tender; mildly distended, BS+ ext - no edema, pulses 2+ b/l skin - no rash, pallor psych - a/o x 3 Results & Data Results & Data ([facility]) Vital Signs (Past 12 Hours) Vital Signs Temp Pulse Pulse Resp BP Pulse Ox O2 Del Method 07/28/22 08:02 36.9 C 91 H 18 118/78 98 Room Air 07/28/22 07:18 36.6 C 89 16 113/73 98 Room Air Laboratory Results Laboratory Results - last 24 hr 07/28/22 07/28/22 06:51 06:51 WBC 11.16 H RBC 3.41 L Hgb 9.2 L Hct 28.5 L MCV 83.6 MCH 27.0 MCHC 32.3 RDW Std Deviation 57.7 H RDW Coeff of Emelina 18.8 H Plt Count 199 MPV 8.7 L Absolute Nucleated RBC 0.04 H Nucleated RBC % (auto) 0.4 Sodium 132 L Potassium 6.0 H Chloride 102 Carbon Dioxide 17 L Anion Gap 13 H BUN 57 H Creatinine 4.23 H D Est Cr Clr Drug Dosing 16.7 Est GFR ( Amer) 16.5 Est GFR (Non-Af Amer) 14.2 BUN/Creatinine Ratio 13.5 Glucose 78 Calcium 7.1 L PG Care Time/CCT Total # of Minutes Spent Total Time Spent with Patient: Total time spent is greater than 50% in coordination of care (as documented) at patient's floor/unit and/or counseling patient: Critical Care Time: Yes Total Critical Care Time: 40 Coding Level of Care Code None Diagnoses YASSINE (acute kidney injury) N17.9 Hyperkalemia E87.5 Acute dehydration E86.0 Prostate cancer metastatic to bone C61; C79.51 Liver metastases C78.7 Acute pain of left hip M25.552 Hypertension I10 Hydronephrosis N13.30 Anemia D64.9 Anemia type: unspecified type Scrotal edema N50.89 Additional Codes Critical Care Time - Critical Care Time: Yes ([id number]) (1) Anemia Anemia type: unspecified type Qualified Code(s): D64.9 - Anemia, unspecified
[2022-07-28] MEDS: SODIUM BICARBONATE 8.4% 100 MEQ in DEXTROSE 5% 1,000 ML IV SCH ×2 (11:16→22:34)
[2022-07-28 15:55] LABS: BUN Creatinine Ratio 12.9 (10-20); Calcium 7.4 mg/dl (8.5-10.1); Creatinine Clr Calc Pharmacy 15.4 ml/min; Est GFR (Non-African American) 12.9 ml/min; Potassium 5.9 mmol/L (3.5-5.1)
[2022-07-28] MEDS ORDERED: HYDROmorphone HCL 2 MG TAB PO PRN (18:25)
[2022-07-29] MEDS: HYDROmorphone INJ 1 MG/ML SYRINGE IV PRN ×2 (05:40→09:08)
[2022-07-29 08:02] LABS: Calcium 6.9 mg/dl (8.5-10.1); Potassium 5.1 mmol/L (3.5-5.1)
[2022-07-29 08:11] LABS: BUN Creatinine Ratio 12.6 (10-20); Creatinine Clr Calc Pharmacy 17.3 ml/min; Est GFR (African American) 15.2 ml/min; Est GFR (Non-African American) 13.1 ml/min
[2022-07-29] MEDS: CHECK fentaNYL PATCH PLACEMENT SCH ×4 (08:56→23:17)
[2022-07-29] MEDS: CYCLOBENZAPRINE HCL 10 MG TAB PO SCH ×2 (08:56→20:44)
[2022-07-29] MEDS: PANTOprazole 40 MG TAB PO SCH (08:56)
[2022-07-29] MEDS: METOPROLOL SUCC 50MG EXT REL TAB PO SCH (08:56)
[2022-07-29] MEDS: cloNIDine HCL 0.1 MG TAB PO SCH ×2 (08:57→20:39)
[2022-07-29] MEDS: LIDOCAINE 5% 1 PATCH TD SCH (08:57)
[2022-07-29] MEDS: SENNA 8.6 MG TAB PO SCH (08:59)
[2022-07-29] MEDS: POLYETHYLENE (MIRALAX) 17 GM PACK PO SCH (08:59)
[2022-07-29] MEDS: HEPARIN SOD 5,000 UNIT/0.5 ML VIAL SQ SCH ×2 (08:59→20:40)
[2022-07-29] MEDS: dexAMETHasone 4 MG in SYRINGE 0 ML IV SCH ×2 (09:08→20:39)
[2022-07-29] MEDS: SODIUM BICARBONATE 8.4% 100 MEQ in DEXTROSE 5% 1,000 ML IV SCH (09:08)
[2022-07-29] MEDS ORDERED: STAT IV STA (09:24)
[2022-07-29] MEDS ORDERED: CALCIUM GLUCONATE 10% 1,000 MG in DEXTROSE 5% 50 ML IV ONE (09:45)
[2022-07-29] MEDS ORDERED: NALOXONE HCL 0.4 MG/1 ML VIAL/CARP IV PRN (11:48)
--- NOTE | 2022-07-29 11:55 | Hospitalist Progress Note ---
Date of Service July 29, 2022 Assessment & Plan (1) YASSINE (acute kidney injury): Plan: Earlier in the stay the patient had YASSINE due to obstructive uropathy. Had b/l hydronephrosis s/p b/l ureteral stents by urology. Creatinine ultimately normalized to <1.5. Over the last few days his creatinine began to rise. Cr increased to >4 yesterday - remains about the same overnight. High K is better. Cont weathers. He received IV bicarbonate drip due to #2 below. However, he has severe 3rd spacing today, and the bicarb drip is incompatible with [employer] DES[employer] dilaudid. Thus, stop the drip. Give another dose of patiromer today. BMP am. (2) Hyperkalemia: Plan: 2nd to #1. Improved overnight with Calcium/Patiromer/Bicarb drip. Stopping drip due to above issues in #1. Patiromer again today. BMP am. (3) Acute dehydration: Plan: failure to thrive/anorexia/poor oral intake in the setting of advanced prostate ca with bony and liver mets. despite IV fluids his Cr is no better and he is 3rd spacing. d/c IV fluids today. (4) Prostate cancer metastatic to bone: Plan: patient has a history of advanced, metastatic prostate cancer. Admitted 07/13/22 with worsening pain and progressive stage 4 prostate cancer despite multiple treatments including enzalutamide, olaparib, Doxil Taxol, carbo. Severe pain L buttock/hip due to diffuse bony mets. Was started on fentanyl patch and titrated to 100mcg q72h while here. Using IV dilaudid prn breakthrough. Rad/onc consulted - offered palliative XRT for pain control. Has received 9 fractions of XRT to L hip to date. Last session 07/31/22. Cont with SEVERE Pain despite IV dilaudid prn. Prednisone changed to IV dexamethasone. In light of rapidly declining status will start [employer] DES[employer] dilaudid - 0.2mg demand dose, lock-out q15min, no basal for now - but low threshold for such. Stop prn PO and IV dilaudid. (5) Liver metastases: Plan: marked enlargement of left lobe of liver the lesion was 6.7cm in size in May - likely much, much larger at this time treat pain (6) Acute pain of left hip: Plan: see #4 above (7) Hypertension: Plan: Continue clonidine, metoprolol but reduce doses of both (8) Hydronephrosis: Plan: Found to have moderate-severe hydronephrosis this admission s/p cystoscopy and bilateral stents placement appreciate Urology assistance (9) Anemia: Plan: s/p 1 unit PRBCs this admission H/H stable since then anemia 2nd to advanced prostate ca (10) Scrotal edema: Plan: cont weathers pain control Plan DVT prophylaxis: heparin DNR/DNI I spoke with Luanne Pirestravis pt's sister ([phone]) by phone 07/28/22. she lives in the [facility] in [place] she understands that her brother is rapidly declining she saw him at [facility] a few weeks ago and he was doing very poorly then I discussed the ARF and high K along with progressive nature of his cancer, ongoing issues w/ pain control, etc. she stated she would be coming to [place] [facility] nurses got word that she is leaving tonight at midnight to come to [place] I left a voicemail for her today on her cellphone anticipate transitioning to full comfort care pathway once his sister is here Admission and Anticipated Discharge Date Admission Date: July 13, 2022 Subjective tele overnight wnl patient was resting when I came in to see him no new complaints c/o ongoing L hip pain and upper abdominal pain radiation hasn't helped the pain - he doesn't want to complete his XRT that is scheduled for tomorrow requiring frequent IV dilaudid for his L hip pain NO APPETITE Review of Systems Review of Systems: cv - denies chest pain pulm - denies dyspnea GI - no nausea or emesis Physical Exam Physical Exam: gen - looks very tired, pale, a/o x 3 mouth - MM very dry; poor dentition neck - no JVD heart - RRR, s1 s2, no murmur lungs - CTA b/l abd - liver is markedly enlarged; left lobe of liver is very large and firm to palpation; tender over the liver; distended, BS+ ext - 2+ edema b/l; pulses 2+ b/l skin - pallor psych - a/o x 3 Results & Data Results & Data ([facility]) Vital Signs (Past 12 Hours) Vital Signs Temp Pulse Pulse Resp BP Pulse Ox O2 Del Method 07/29/22 11:16 Room Air 07/29/22 08:00 36.5 C 84 18 118/78 97 Room Air 07/29/22 07:25 88 Laboratory Results Laboratory Results - last 24 hr 07/28/22 07/29/22 14:38 06:14 Sodium 130 L 129 L Potassium 5.9 H 5.1 Chloride 101 98 Carbon Dioxide 18 L 21 Anion Gap 11 10 BUN 59 H 57 H Creatinine 4.59 H* D 4.54 H* Est Cr Clr Drug Dosing 15.4 17.3 Est GFR ( Amer) 15.0 15.2 Est GFR (Non-Af Amer) 12.9 13.1 BUN/Creatinine Ratio 12.9 12.6 Glucose 114 H 120 H Calcium 7.4 L 6.9 L PG Care Time/CCT Total # of Minutes Spent Total Time Spent with Patient: Total time spent is greater than 50% in coordination of care (as documented) at patient's floor/unit and/or counseling patient: Coding Level of Care Code 70842 SUB INP/OBS CARE 3/50MIN Diagnoses YASSINE (acute kidney injury) N17.9 Hyperkalemia E87.5 Acute dehydration E86.0 Prostate cancer metastatic to bone C61; C79.51 Liver metastases C78.7 Acute pain of left hip M25.552 Hypertension I10 Hydronephrosis N13.30 Anemia D64.9 Anemia type: unspecified type Scrotal edema N50.89 (1) Anemia Anemia type: unspecified type Qualified Code(s): D64.9 - Anemia, unspecified
[2022-07-29] MEDS ORDERED: PATIROMER CALCIUM SORBITEX 8.4 GM PACK PO ONE (12:02)
[2022-07-29] MEDS: SODIUM CHLORIDE 0.9% 1000ML 1,000 ML IV SCH (12:09)
[2022-07-29] MEDS: HYDROmorphone PCA 30 MG/30 ML IV PRN (12:09)
[2022-07-29] MEDS: FIRST - Mouthwash BLM 119 ML PO SCH ×3 (12:41→20:39)
[2022-07-30 06:45] LABS: BUN Creatinine Ratio 13.9 (10-20); Calcium 6.9 mg/dl (8.5-10.1); Creatinine Clr Calc Pharmacy 17.7 ml/min; Est GFR (African American) 15.5 ml/min; Est GFR (Non-African American) 13.4 ml/min; Potassium 5.5 mmol/L (3.5-5.1)
[2022-07-30] MEDS: cloNIDine HCL 0.1 MG TAB PO SCH ×2 (09:00→21:53)
[2022-07-30] MEDS ORDERED: SODIUM BICARBONATE 650 MG TAB PO SCH (09:00)
[2022-07-30] MEDS ORDERED: PATIROMER CALCIUM SORBITEX 8.4 GM PACK PO SCH (09:00)
[2022-07-30] MEDS ORDERED: METOPROLOL SUCC 25MG EXT REL TAB PO SCH (09:00)
[2022-07-30] MEDS: PANTOprazole 40 MG TAB PO SCH (09:01)
[2022-07-30] MEDS: HEPARIN SOD 5,000 UNIT/0.5 ML VIAL SQ SCH (09:01)
[2022-07-30] MEDS: SENNA 8.6 MG TAB PO SCH (09:01)
[2022-07-30] MEDS: dexAMETHasone 4 MG in SYRINGE 0 ML IV SCH ×2 (09:02→21:50)
[2022-07-30] MEDS: LIDOCAINE 5% 1 PATCH TD SCH (09:02)
[2022-07-30] MEDS: CHECK fentaNYL PATCH PLACEMENT SCH (09:03)
[2022-07-30] MEDS: FIRST - Mouthwash BLM 119 ML PO SCH ×4 (09:03→21:53)
[2022-07-30] MEDS: CYCLOBENZAPRINE HCL 10 MG TAB PO SCH ×2 (09:07→21:53)
[2022-07-30] MEDS: POLYETHYLENE (MIRALAX) 17 GM PACK PO SCH (10:15)
[2022-07-30] MEDS: fentaNYL 100 MCG/HR TDSY TD SCH (13:12)
[2022-07-30] MEDS ORDERED: LORazepam 2 MG/1 ML VIAL IV PRN (13:48)
[2022-07-30] MEDS ORDERED: HYDROmorphone INJ 0.5 MG/0.5 ML SYR IV PRN ×2 (13:48→15:32)
[2022-07-30] MEDS ORDERED: GLYCOPYRROLATE 0.2 MG/ML VIAL IV PRN (13:48)
--- NOTE | 2022-07-30 14:07 | Palliative Care Progress Note ---
Date of Service July 30, 2022 Assessment & Plan (1) Palliative care encounter: (2) Cancer related pain: Plan: Abhijit feels that his transdermal fentanyl patch of 100 mcg not helping. In spite of dose escalation, radiation oncology intervention, steroid IV, his pain continues to escalate and has not improved in any significant manner. He is now in a steady decline and has likely transition from a process of living to a process of dying. Yesterday a Dilaudid POLE CLIMBER only was ordered to help improve his pain management. He states that even when he presses the button he does not get relief that lasts for very long time. He does not feel any relief with the transdermal fentanyl at this time feels that he would like to be switched to another medication. Transdermal fentanyl 100 mcg is equivalent to approximately 240 mg of oral morphine equivalents, which is 80 mg of IV morphine equivalents which is roughly 16 mg of IV Dilaudid equivalent per day. This translates out to replacement of 0.66 mg/h of IV Dilaudid equivalents in the lieu of his transdermal fentanyl 100 mcg patch. I have therefore increased his Dilaudid POLE CLIMBER as follows: I have added a continuous rate of 0.5 mg/h. This is slightly underdosing his transdermal fentanyl equivalent but will also account for some cross tolerance during this opioid conversion. I have increased his Dilaudid POLE CLIMBER demand dose to 0.4 mg every 10 minutes as needed. His maximum amount per hour is now Dilaudid 2.9 mg. I have asked for his transdermal fentanyl patch to be removed. It would likely take another 6 to 8 hours for this to washout. Patient is aware that he may need to use his as needed demand dose more frequently. As a backup plan I have also added Dilaudid 1 mg IV for very severe pain refractory dyspnea or terminal air hunger in the event the POLE CLIMBER is not providing adequate relief. Patient is agreeable to transition to comfort care, please see discussion below. (3) Advanced care planning/counseling discussion: Plan: I met with the patient, his sister and [id number] at the bedside. Present also for this conversation with Sarai from case management. We discussed his overall decline and goals of care at this junction. Family and patient have elected to transition to comfort care. They are less sure about disposition plans as patient's home cannot be where anyone cares for him, his daughter still have 3 more months of full-time work to complete, and he has a friend who lives in the [place] him who was offered to let patient come stay at his house however sister points out that this friend is also dealing with his own cancer and his ability to provide physical care and support to patient is likely to be limited. They do not feel they have enough family and friends to provide supportive care to patient through this time. Patient is reluctant to go to a [facility] as he especially worries about the financial aspects of this and what he may leave behind for his daughter to have to manage or take over as that. He is very mindful of this issue and worries. We discussed a comfort focused plan of care which patient and family agreed to. I have asked care management to assist with a GIP hospice evaluation as I believe patient has had continued and escalating pain despite numerous changes. It is likely he may need due to the severe nature of his pain, ongoing IV pain management. He has a widely metastatic prostate cancer with significant mets to bone which have not improved in terms of pain relief or control despite palliative radiation therapy and IV Decadron. (4) Liver metastases: (5) Prostate cancer metastatic to bone: Plan Pain management has been modified as noted above. Patient is now comfort care. All nonessential and on comfort oriented interventions and medications have been stopped. I have added additional medications for comfort management with particular attention to medications to assist with anxiety, agitation, myoclonus and spasms. I have asked care management to obtain a referral for inpatient hospice evaluation, [facility]. Please see their note for additional information. I met with patient and family. I have answered all their questions to their apparent satisfaction and they verbalized understanding and are in agreement with the plan of care as outlined above. Sister notes that they are going to meet as a family later tonight to further discuss the logistics and potentials for bringing patient home with hospice, especially with needing to identify who is home he would return to and then who would be available to provide care for him. We had a very detailed and specific conversation about hospice and it was noted to them very clearly and very specifically that hospice is a visiting nurse service that provides support and care in the home for 1 to 2 hours at a time but would not be an [id number] presents. The supportive care and the TLC that end-of-life patients need at this stage is delivered to the patient and given by their families/friends and caregivers. Radha William DNP Clinical Director, Palliative Medicine Admission and Anticipated Discharge Date Admission Date: July 13, 2022 Subjective steadil declining, family from [place] arrived. pt is comfort care he tells me pain is still 8-10/10 at rest a dilaudid POLE CLIMBER was started, demand dose only, no continuous, along with TDF 100mcg and prn dilaudid IV his sister and brother in law from [place] are present at time of my visit, long with Radha from . we reviewed options for dc planning along with pt preferences: sister shared the daughter "is working multimedia author for another 3 mos then she can care for Abhijit multimedia author." there is a friend in [place], in patient's mobile home development, with whom pt might be able to go live but that friend is also dealing with his own cancer and his ability to care for pt is limited. Review of Systems Review of Systems: All systems reviewed & are unremarkable except as noted in Subjective Physical Exam Physical Exam: Chronically ill-appearing, very pale, semireclined in bed. Cognition appears slowed compared to prior visits. He is somewhat confused and easily distracted. Sometimes tangential with conversation. When asked about pain specifically he tells me continues to be an 8 out of 10 to occasionally 10 out of 10 even at rest. Does not feel the transdermal fentanyl patch is helping him at this point. Also notes that radiation he feels did not provide him with the relief he had been hoping it would give him. He does want to see some improved pain relief. He is not moving around a lot in bed. There is significa nt generalized weakness. There is edema to the lower extremities. His skin is cool to the touch but there is no mottling or cyanosis. Lungs are clear but diminished with the occasional faint rhonchi. Heart tones are S1-S2 and I do not appreciate any JVD. Abdomen is soft, mildly distended; there is a palpable liver met noted my palpation. He has diffuse tenderness to palpation across his hips, lower back, paraspinal processes and a little bit across his upper back as well (this may be more positional related.)l Results & Data ([facility]) Vital Signs (Past 12 Hours) Vital Signs Temp Pulse Pulse Resp BP Pulse Ox O2 Del Method 07/30/22 08:00 82 07/30/22 10:57 36.5 C 83 17 117/79 97 Room Air 07/30/22 07:17 36.3 C L 84 17 131/81 98 Room Air 07/30/22 04:18 36.4 C L 84 20 136/88 98 Room Air PG Care Time/CCT Total # of Minutes Spent Total Time Spent: 75 Total Time Spent with Patient: Total time spent is greater than 50% in coordination of care (as documented) at patient's floor/unit and/or counseling patient: Coding [place] [address] SUB INP/OBS CARE 3/50MIN Patient Type Established History Comprehensive Exam Comprehensive Medical Decision Making Moderate Complexity Diagnoses Palliative care encounter Z51.5 Cancer related pain G89.3 Advanced care planning/counseling discussion Z71.89 Liver metastases C78.7 Prostate cancer metastatic to bone C61; C79.51
[2022-07-30] MEDS: SODIUM CHLORIDE 0.9% 1000ML 1,000 ML IV SCH (15:15)
[2022-07-30] MEDS: HYDROmorphone PCA 30 MG/30 ML IV PRN (15:16)
--- NOTE | 2022-07-30 20:29 | Hospitalist Progress Note ---
Date of Service July 30, 2022 Assessment & Plan (1) Need for comfort care: Plan: Patient today is being transitioned from routine medical care to a palliative care / comfort care measures pathway All unnecessary medications have been d/c Stop vitals Stop labs Keep weathers Cont steroids as this will help bone pain Defer narcotic / SYSTEMS ENGINEER management to palliative care team Can offer contract post office clerk consult if desired by patient There has been some discussion about his candidacy for inpatient hospice status (2) Palliative care patient: Plan: see #1 above (3) YASSINE (acute kidney injury): Plan: Earlier in the stay the patient had YASSINE due to obstructive uropathy. Had b/l hydronephrosis s/p b/l ureteral stents by urology. Creatinine ultimately normalized to <1.5. Over the last few days his creatinine began to rise. Cr increased to >4 this weekend and has remained elevated despite supportive care. High K had improved, now rising again. Cont weathers. Stop fluids, meds, etc for the YASSINE and hyperkalemia. (4) Hyperkalemia: Plan: See above (5) Acute dehydration: Plan: 2nd to advanced, stage 4, progressive prostate ca stop IV fluids diet if desired (6) Prostate cancer metastatic to bone: Plan: patient has a history of advanced, metastatic prostate cancer. Admitted 07/13/22 with worsening pain and progressive stage 4 prostate cancer despite multiple treatments including enzalutamide, olaparib, Doxil Taxol, carbo. Severe pain L buttock/hip due to diffuse bony mets. Was started on fentanyl patch and titrated to 100mcg q72h while here. Rad/onc consulted - offered palliative XRT for pain control. Had received 9 fractions of XRT to L hip. Last session was scheduled for today - I corresponded with Dr Dunn - this XRT session will be canceled. Prednisone changed to IV dexamethasone. This should help bone pain. Started SYSTEMS ENGINEER dilaudid yesterday due to ineffectiveness of prn IV dilaudid pushes. Basal rate added by palliative today; defer management to them. (7) Liver metastases: Plan: marked enlargement of left lobe of liver the lesion was 6.7cm in size in May - likely much, much larger at this time treat pain (8) Acute pain of left hip: Plan: see above (9) Hypertension: Plan: STOP bp meds (10) Hydronephrosis: Plan: Found to have moderate-severe hydronephrosis this admission s/p cystoscopy and bilateral stents placement (11) Anemia: Plan: s/p 1 unit PRBCs this admission anemia 2nd to advanced prostate ca no further CBCs (12) Scrotal edema: Plan: cont weathers pain control Plan stop heparin DNR/DNI Luanne Dinero, pt's sister ([phone]), has arrived from [place] and is at bedside today Admission and Anticipated Discharge Date Admission Date: July 13, 2022 Subjective pt's sister & brother in law [facility] [place] prior to my visit Abhijit met with Radha William from palliative care he has been transitioned to comfort care, and a basal rate has been started on his SYSTEMS ENGINEER dilaudid he continues with severe left hip pain and upper abd pain appetite remains poor- sister, however, brought [employer] fast food and he is excited to eat some denies dyspnea denies chest pain Review of Systems Review of Systems: gen - fatigue GI - no nausea/emesis CV - severe LE edema; legs feel heavy pulm - no cough Physical Exam Physical Exam: gen - looks very tired, pale, a/o x 3 ; pleasant mouth - MM very dry; poor dentition neck - no JVD heart - RRR, s1 s2, no murmur lungs - CTA b/l abd - liver is markedly enlarged; left lobe of liver is very large and firm to palpation; tender over this region; distended, BS+ ext - 3+ edema b/l (worse today); pulses 2+ b/l skin - pallor psych - a/o x 3 Results & Data Results & Data ([place]) Vital Signs (Past 12 Hours) Vital Signs Temp Pulse Resp BP Pulse Ox O2 Del Method 07/30/22 10:57 36.5 C 83 17 117/79 97 Room Air Laboratory Results Laboratory Results - last 24 hr 07/30/22 05:49 Sodium 130 L Potassium 5.5 H Chloride 99 Carbon Dioxide 21 Anion Gap 10 BUN 62 H Creatinine 4.45 H Est Cr Clr Drug Dosing 17.7 Est GFR ( Amer) 15.5 Est GFR (Non-Af Amer) 13.4 BUN/Creatinine Ratio 13.9 Glucose 95 Calcium 6.9 L PG Care Time/CCT Total # of Minutes Spent Total Time Spent with Patient: Total time spent is greater than 50% in coordination of care (as documented) at patient's floor/unit and/or counseling patient: Coding Level of Care Code 67176 SUB INP/OBS CARE 2/35MIN Diagnoses Need for comfort care Palliative care patient Z51.5 YASSINE (acute kidney injury) N17.9 Hyperkalemia E87.5 Acute dehydration E86.0 Prostate cancer metastatic to bone C61; C79.51 Liver metastases C78.7 Acute pain of left hip M25.552 Hypertension I10 Hydronephrosis N13.30 Anemia D64.9 Anemia type: unspecified type Scrotal edema N50.89 (1) Anemia Anemia type: unspecified type Qualified Code(s): D64.9 - Anemia, unspecified
[2022-07-31] MEDS: FIRST - Mouthwash BLM 119 ML PO SCH ×2 (08:19→11:56)
[2022-07-31] MEDS: CYCLOBENZAPRINE HCL 10 MG TAB PO SCH (09:45)
[2022-07-31] MEDS: dexAMETHasone 4 MG in SYRINGE 0 ML IV SCH (10:33)
[2022-07-31] MEDS: LIDOCAINE 5% 1 PATCH TD SCH (10:33)
[2022-07-31] MEDS: SODIUM CHLORIDE 0.9% 1000ML 1,000 ML IV SCH (11:56)
--- NOTE | 2022-07-31 15:07 | Palliative Care Progress Note ---
Date of Service July 31, 2022 Assessment & Plan (1) Palliative care patient: Plan: CITY DISTRIBUTION CLERK Awaiting hospice decision re GIP (2) Need for comfort care: Plan: CITY DISTRIBUTION CLERK in progress (3) Cancer related pain: Plan: * Very severe cacer pain: the pain lessened to 7/10 but any positioning or movement remains painful. * I have increased his infusion to Dilaudid 0.7mg per hour continuous with Dilaudid 0.5mg CALL PERSON bolus q10min prn. His TDF conversion equated out to approx 0.66mg/hr Dilaudid equivalent, so bringing his continuos rate to 0.7 is a more equianalgesic replacement. Present on Admission?: Yes (4) Palliative care encounter: Plan remains on comfort care family presence is providing comfort and support no answer as yet (from what pt reports and from what I discerned from chart + d/w nursing) re GIP request from [facility] hospice liberalize diet, allow all PO as desired for comfort/pleasure The ability for home hospice dc limited by need to manage his very severe, [id number]-opiods cancer pain, he has failed oral morphine, oxycodone, OxyContin and transdermal fentanyl. We are seeing signif relief with IV Dilaudid CALL PERSON. Radha William DNP Clinical Director, Palliative Medicine Admission and Anticipated Discharge Date Admission Date: July 13, 2022 Subjective cancer related pain mgt, on comfort care. awaiting GIP decision from [facility] hospice, no updates per pt/family at bedside patient reports pain level 7-8/10, no longer pushing 10/10 but feels it could improve. sister notes he has a very hard time getting comfortable and settling in for a rest/nap. additional pillows in use for cushioning as well. no n/v/d/c fatigue and weakness unchanged remains awake/alert and interactive with family and staff [birth year] was his 62th bday. family brought in a box of his favorite chocolate candies. pt states he is also hoping for a donut, which are his favorite. Review of Systems Review of Systems: All systems reviewed & are unremarkable except as noted in Subjective Physical Exam Physical Exam: resting in bed, semi reclined. appears uncomfortable but not severe distress. respirations even, not labored and no use of accessory muscles. no conversational dyspnea. HARO weakly but cohesively. Neck supple/no stridor. perrla. eomi's. bitemp wasting noted. chest without rhonchi or wheeze. cardiac tones normal, no jVD. Abd soft, non distended, non tender. +generalized weakness. Results & Data ([facility]) Vital Signs (Past 12 Hours) Vital Signs Temp Pulse Resp BP Pulse Ox O2 Del Method 07/31/22 08:20 36.4 C L 92 H 18 131/88 96 Room Air Laboratory Results no new data, on CITY DISTRIBUTION CLERK Diagnostic Findings no new data, on CITY DISTRIBUTION CLERK PG Care Time/CCT Total # of Minutes Spent Total Time Spent: 35 Total Time Spent with Patient: Total time spent is greater than 50% in coordination of care (as documented) at patient's floor/unit and/or counseling patient: Prolonged Care Time Prolonged Care Time: No Critical Care Time: No Coding [place] [address] SUB INP/OBS CARE 3/50MIN Patient Type Established History Detailed Exam Detailed Medical Decision Making Moderate Complexity Diagnoses Palliative care patient Z51.5 Need for comfort care Cancer related pain G89.3 Palliative care encounter Z51.5
--- NOTE | 2022-07-31 15:25 | Discharge Summary ---
Date of Service date of admission - July 13, 2022 date of discharge - July 31, 2022 Admission HPI Per Admitting Provider Abhijit Brennan is a 61-year-old male with a past medical history of prostate cancer with metastasis to bone and hypertension who presents to the ER on referral from the cancer care center for 04/16 intractable pain. Patient diagnosed with prostate cancer in April 2018, was found to have retroperitoneal adenopathy 05/2018, and bone scan 06/2018 indicated metastatic disease in posterior ribs, T11, midthoracic vertebrae. Was started on ADT with Lupron. Persistently elevated PSA 07/2019, was seen at [facility] and started on enzalutamide and Zometa. PSA rising 05/2020, CT revealed progression with bony metastasis. Based on tumor markers patient was switched to Lynparza 05/2020 and continue this until 04/2021 when his PSA again increased. CT 05/09 021 with increasing number of metastatic disease in thoracic/lumbar spine. Docetaxel started 06/2021, this was poorly tolerated and treatment was held. Resumed treatment for cycle [address] chest 09/2021 with multifocal osteoblastic skeletal metastasis without pulmonary disease. Nuclear bone scan 12/2021 with mild improvement in bony signal, 2 pulmonary nodules right-sided appreciated. PSA rising 01/2022, PSMA denied by insurance. Cycle 10 of Doxil Taxol completed 02/2022 and discontinued subsequently. Carb as a Taxol 03/27/2022 - 05/27/2022. CT 05/2022 with continued progression of disease, enhancing liver lesions, and new left external iliac lymph node progression. Carb Acetoxyl discontinued due to progression. Patient was referred for a liver lesion biopsy in hopes of Caris testing and possible additional options, however overall prognosis guarded. Pathology results of biopsy 06/22/22: Liver, core biopsy: - Adenocarcinoma, consistent with metastatic adenocarcinoma of prostate origin. The vast majority of the core biopsy consists of benign liver tissue. The metastatic carcinoma represents an area no greater than 1.0 mm in greatest dimension. This case was discussed with Dr. Waters and given the small amount of tumor present it will not be sent for Caris testing. Hip deformity Appetite decreased. Globally weak 'whole body' left leg is the worst with severe bone pain. Pain in his L hip/buttock and radiates into the thigh, does not go past the knee. No foot drop. Some paresthesia in the thigh/ankle on the L, sensation is intact. No fevers, chills, or sweats. 'Don't know what ot call it, sometimes get some hot sweats or flushed but nothing new'. no chest pain or chest pressure. Denies pain in neck/spine 'thats not that bad, just really the left hip bone which has been there for a few months.' Worsening over last few months, much worse in last 24 hours and could not get comfortable. Morphine has helped and down to 8-9 from 04/16 at cancer center. Difficulty bearing weight due to lisa, but can do it. Current tx: Oxycodone, fentanyl 50mcg patch. Not sure which. Takes lupron. Was scheduled for radiation next week, was scheduled for first teatmetn ~07/17, has not had simulation Poo po intact, gradually declining. +N/+V worse after tx. Most recent imaging: Liver ultrasound with biopsy 06/22/2022: Right hepatic lobe biopsy completed. CTA/P with IV and oral contrast: 1. Numerous foci of skeletal metastatic disease are seen, overall slightly progressed from prior exam.2. Interval development of a left external iliac lymph node measuring 13 mm, concerning for metastatic disease.3. Interval development of numerous enhancing liver lesions. Findings are concerning for hepatic metastases which were not seen on prior exams. Correlation with MRI liver mass protocol with urinalysis is recommended if not previously evaluated.4. Redemonstration of left hydronephrosis without evidence of obstructing stone. - CT-H 04/03/22: IMPRESSION: There is no hemorrhage, mass effect, or evidence of acute territorial ischemia by CT criteria. - CT-Cspine 04/03/22: No acute fractures or subluxations are identified. Degenerative changes are seen in the visualized spine. Numerous blastic foci are seen in the visualized skeleton. The alignment is normal. Soft tissues are unremarkable. - CT-Chest 04/03/22: 1. There is no acute posttraumatic intrathoracic abnormality.2. There is no airspace consolidation, pleural effusion, or pneumothorax.3. There is multifocal hepatic metastatic disease. This is new from 12/15/2021.4. Again seen is diffuse osteoblastic metastatic disease. This appears progressive as compared to 12/15/2021.5. Left-sided hydronephrosis is partially visualized and likely unchanged.6. Additional findings as above. - Bone Scan 12/2021: Interval mild improvement in multifocal osseous signal, most pronounced in the ribs all may represent somewhat improved osseous metastatic disease. Per cancer care note 06/2022 - Dramatic progression on multiple treatment options including enzalutamide, olaparib, Doxil Taxol, carbotaxol. Patient with significant bone pain 2/2 metastasis Zometa held due to worsening renal function ADT with leuprolide injections continued at [facility] Patient follows with Dr. Waters Principal Diagnosis 1. severe left hip pain due to metastatic disease 2. stage 4 prostate cancer with extensive mets to bone, liver, lymph nodes, etc 3. acute renal failure 4. hyperkalemia 5. anemia 6. b/l hydronephrosis s/p ureteral stent placement 7. hypertension 8. transition to inpatient hospice status Discharge Exam gen - looks very tired, pale, a/o x 3 mouth - MM very dry; poor dentition neck - no JVD heart - RRR, s1 s2, no murmur lungs - CTA b/l, decreased BS bases abd - liver is markedly enlarged; left lobe of liver is very large and firm to palpation; tender over this mass; distended, BS+ ext - 3+ edema b/l from feet to thighs; pulses 2+ b/l skin - pallor psych - a/o x 3 Discharge Data Allergies Allergy/AdvReac Type Severity Reaction Status Date / Time No Known Allergies Allergy Verified 07/13/22 15:19 Consultations Palliative Care Radiation Oncology Urology Nephrology Procedures Performed Operation Date: 07/16/22 13:15 Actual Procedures p Cystoscopy, Bilateral Retrograde Pyelogram, and Bilateral Stent Placement(Bilateral) - Laron Bar, DO PRBCs x 1 unit Radiation therapy x 9 fractions to left hip region Ordered Studies 07/15/22 08:14 MRI Lumbar Spine [MR lumbar spine wo con] Routine 07/16/22 14:30 FL retrograde includes kub Routine 07/17/22 14:11 CT guide rad therapy pelvis Routine 07/26/22 04:28 US scrotum/testicle Urgent 07/26/22 04:36 US pelvic limited Urgent Hospital Course (1) Prostate cancer metastatic to bone: Patient with history of advanced, metastatic prostate cancer. Initial diagnosis was in April 2018. Admitted 07/13/22 with worsening pain of left hip and buttock region region due to diffuse bony mets. His cancer had previously not responded to multiple treatments including enzalutamide, olaparib, Taxol, carbo. He was seen by radiation/oncology and palliative care. Was started on fentanyl patch and titrated to 100mcg q72h while here. Rad/onc offered palliative XRT for pain control. Received 9 fractions of XRT to L hip. The patient did not feel the radiation helped his pain, however, and he declined further treatments after the 9th session. Chronic Prednisone was changed to IV dexamethasone to help with bone pain as well. Late in his stay he was placed on SUPERVISOR OF RESEARCH dilaudid due to refractory bone and abdominal pain. In the midst of acute renal failure, hyperkalemia, and refractory pain he was transitioned to a comfort care pathway on 07/31/22. Finally, on 07/31/22, he was evaluated by [facility] and deemed a candidate for inpatient hospice status. (2) Need for comfort care: see above (3) Palliative care patient: see above (4) YASSINE (acute kidney injury): Earlier in the stay the patient had YASSINE due to obstructive uropathy. Had b/l hydronephrosis s/p b/l ureteral stents by urology. Creatinine ultimately normalized to <1.5. Late in the stay, however, his creatinine began to rise once again. Creatinine increased to >4, suspect 2nd to prerenal causes (poor PO intake, etc). He developed hyperkalemia 2nd to such. He was given IV fluids and treatment for his high potassium. Despite such his creatinine and potassium levels remained elevated. (5) Hyperkalemia: See above (6) Acute dehydration: 2nd to advanced, stage 4, progressive prostate ca (7) Liver metastases: marked enlargement of left lobe of liver causing upper abdominal pain. the lesion was 6.7cm in size in May 2022 - likely much, much larger at this time. see above re: pain control. (8) Acute pain of left hip: see above (9) Hypertension: (10) Hydronephrosis: Found to have moderate-severe hydronephrosis this admission s/p cystoscopy and bilateral stents placement by [facility] (11) Anemia: s/p 1 unit PRBCs this admission anemia 2nd to advanced prostate ca Plan patient has been seen by [facility] and was deemed a candidate for inpatient hospice status due to severity of his bone pain/abdominal pain and need for SUPERVISOR OF RESEARCH dilaudid Total Time Total Time Spent Total Time Spent (In Minutes): 45 Discharge Plan Discharge Items Patient Disposition: Hospice - Medical Facility Reason For Visit: L HIP PAIN, CANCER METS Discharge Diagnosis: 1. left hip pain due to metastatic disease 2. stage 4 prostate cancer with mets to bone, liver, etc 3. acute renal failure 4. hyperkalemia 5. anemia 6. transition to inpatient hospice status Activity: As commented below Activity Comment: bedrest Non-emergency contact: Primary Care Provider Call non-emergency contact if: you have any medication questions and your pain is not controlled Follow-up/Referrals: Joe George D.O. [Primary Care Provider] - Diet: Regular Addtl Attending Provider Instructions: Mr Brennan - you will be transitioning to inpatient hospice status at [facility] to control your pain and other symptoms related to your prostate cancer. Pending Studies at Discharge: No Stand-Alone Forms: My [facility] Skilled Items Patient informed of condition?: Yes DNR: Yes Discharge Level of Care: Other Communicable Disease: No Discharge Prognosis: Deteriorating Lines: Peripheral IV Urinary Catheter: Yes Medications and DC Order Prescriptions: Continued cyclobenzaprine 10 mg tablet 10 mg PO BID Rx Instructions: PER DR DOE ondansetron HCl 8 mg tablet 8 mg PO Q6 PRN (Reason: Nausea) diphenoxylate-atropine [Lomotil] 2.5-0.025 mg tablet 1 tab PO Q6H PRN (Reason: diarrhea) Qty: 14 0RF Discontinued clonidine HCl 0.1 mg tablet 0.1 mg PO TID metoprolol succinate 50 mg tablet extended release 24 hr 50 mg PO DAILY prednisone 5 mg tablet 5 mg PO BID Discharge Orders: Discharge Order (Routine); Ordered 07/31/22 Ordered By: Ervin Rose Admission Data Admit Date/Time: 07/13/22 12:50 Attending Provider: Ervin Rose Admit Provider: Tommie eVnegas Primary Care Provider: Joe George Other Providers: [place],[facility] ; [facility], ; [facility] ; Tommie Venegas ; Tahira Hicks ; Az Luu ; Laron Bar ; Laron Woo Coding Level of Care Code HOSP INP/OBS DISCH >30 MIN Diagnoses Prostate cancer metastatic to bone C61; C79.51 Need for comfort care Palliative care patient Z51.5 YASSINE (acute kidney injury) N17.9 Hyperkalemia E87.5 Acute dehydration E86.0 Liver metastases C78.7 Acute pain of left hip M25.552 Hypertension I10 Hydronephrosis N13.30 Anemia D64.9 Anemia type: unspecified type
[2022-07-31] MEDS ORDERED: HYDROmorphone PCA 30 MG/30 ML IV PRN (15:29)
== END 2022-07-31 15:29 | disposition hospice, inpatient (51) | DRG 940 ==
LOC: ED 10:50 → 3W 12:50 → SUATTDRO 12:50 → 3W 15:53 → 4W 07-28 12:19 → 3E 07-31 13:47

== ENCOUNTER 2022-07-31 15:30 | Inpatient (IN) ==
[2022-07-31] MEDS ORDERED: GLYCOPYRROLATE 0.2 MG/ML VIAL IV PRN (16:10)
[2022-07-31] MEDS ORDERED: LORazepam 2 MG/1 ML VIAL IV PRN (16:10)
[2022-07-31] MEDS ORDERED: ATROPINE SULFATE 1% OP SOLN 5 ML BTL SL PRN (16:10)
[2022-07-31] MEDS ORDERED: LORazepam 0.5 MG TAB PO PRN (16:10)
[2022-07-31] MEDS ORDERED: DIPHENOXYLATE/ATROPINE 2.5/0.025MG TAB PO PRN (16:16)
--- NOTE | 2022-07-31 16:17 | History & Physical Report ---
Date of Service July 31, 2022 Assessment & Plan (1) Admission for hospice care: Plan: Patient is being admitted to inpatient hospice status. Appreciate hospice agency support & assistance/recs. Appreciate palliative care team assistance Cont SYNCHRO ASSEMBLER dilaudid - current settings: basal 0.7mg/hour. Demand dose 0.5mg. Lock-out - 10 minutes. Adjust as needed. Re-ordered other comfort meds - ativan prn, zofran prn, etc. Maintain weathers. Cont flexeril 10mg BID (Chronic med for him). BP meds, etc have been discontinued. Support given to pt's daughter at bedside today. (2) Palliative care patient: (3) Need for comfort care: (4) Prostate cancer metastatic to bone: Plan: severe mets to bone left hip pain is the worset area of pain cont SYNCHRO ASSEMBLER dilaudid cont dexamethasone 4mg IV BID for bone pain (5) Liver metastases: Plan: numerous, with largest met in the left lobe the left lobe met is palpable on exam and is tender (6) YASSINE (acute kidney injury): Plan: last documented Cr was ~4.5 with resulting hyperkalemia (7) Hyperkalemia: Plan: last documented K was 5.5 2nd to #6 had been treated with IV calcium/bicarbonate drip/multiple doses of patiromer prior to initiation of comfort care pathway Admission and Anticipated Discharge Date Admission Date: July 31, 2022 History of Present Illness Chief Complaint: inpatient hospice status Primary Care Provider: Joe George Very pleasant but unfortunate 62yo male with stage 4 prostate cancer and extensive metastatic disease to the bones, lymph nodes, and liver - recently hospitalized from 07/13/22 to 07/31/22 for weakness/severe L hip pain due to bony mets/failure to thrive/YASSINE. He had a protracted hospitalization marked by initiation of palliative radiation to the left hip for pain control, initiation of fentanyl patch and other modalities for pain control, placement of b/l ureteral stents for b/l hydronephrosis, and later in his stay treatment of recurrent YASSINE with hyperkalemia. Despite 9 fractions of palliative radiation and escalating amounts of fentanyl patch his left hip pain and upper abdominal pain persisted. He was ultimately placed on SYNCHRO ASSEMBLER dilaudid for control of his pain. YASSINE late in the previous stay was thought 2nd to dehydration/pre-renal causes. Hyperkalemia was treated. The palliative care team continued to assist in management of his pain. There was discussion about him going to a local SNF post-discharge with perhaps hospice. On 07/30/22 the patient's sister arrived from out of town. Discussions were held between the palliative care team and Mr Brennan along with his family. At that time he was transitioned to full comfort care pathway. Additional adjustments were made on his SYNCHRO ASSEMBLER dilaudid. On 07/31/22 a local hospice agency evaluated Mr rBennan for inpatient hospice status and was indeed approved for inpatient hospice status/treatment. Thus, he is now being readmitted to inpatient hospice status for pain control and symptom control with the help of his local hospice agency as well as our palliative care team. Allergies Allergy/AdvReac Type Severity Reaction Status Date / Time No Known Allergies Allergy Verified 07/13/22 15:19 Home Medications Medication Instructions Recorded Confirmed Type clonidine HCl 0.1 mg tablet 0.1 mg PO TID 12/12/21 07/13/22 History cyclobenzaprine 10 mg tablet 10 mg PO BID 12/12/21 07/13/22 History diphenoxylate-atropine 2.5 1 tab PO Q6H PRN diarrhea #14 tabs 12/12/21 07/13/22 Rx mg-0.025 mg tablet (Lomotil) metoprolol succinate 50 mg 50 mg PO DAILY 12/12/21 07/13/22 History tablet,extended release 24 hr ondansetron HCl 8 mg tablet 8 mg PO Q6 PRN Nausea 12/12/21 07/13/22 History prednisone 5 mg tablet 5 mg PO BID 12/12/21 07/13/22 History Past Med/Surg History Medical History (Updated 08/01/22 @ 05:50 by Ervin Rose) Acute dehydration Advanced care planning/counseling discussion YASSINE (acute kidney injury) Cancer related pain Hydronephrosis Hypertension Liver metastases Palliative care encounter Port-A-Cath in place Prostate cancer metastatic to bone Family History (Updated 08/01/22 @ 05:45 by Ervin Rose) Family/Other Cancer multiple primary family members Social History Smoking Status: Never smoker Second Hand Exposure: No; Hx Alcohol Use: No Hx Substance Use: Yes Substance Use Type Other:: medical marijuana Preferred Language: Dominican Communication Ability: Effective Bin Operator Required: No Beliefs That Will Affect Care: None marital status: Single Current Living Situation: Alone Other Information That Helps Us Care for You: No Feels Safe at Home: Yes Safety Concerns: Feels Safe At This Time Assistive Devices: Walker Review of Systems Review of Systems: gen - tired, fatigued, poor appetite, weight loss mouth - dryness, some discomfort cv - no chest pain pulm - no dyspnea GI - upper abd pain, constipation - weathers in place musculo - severe L hip pain; denies pain other locations neuro - no headache psych - depressed Physical Exam Physical Exam: gen - pleasant, comfortable, looks very tired mouth - MM dry neck - no JVD heart - RRR, s1 s2 lungs - decreased BS bases, CTA b/l otherwise abd - distended, left lobe of liver enlarged & palpable with tenderness ext - severe edema from feet to thighs, 3+ pitting vasc - pulses feet 2+ skin - severe pallor psych - slightly groggy but otherwise oriented Code Status & VTE Plan Code Status DNR/DNI VTE Prophylaxis Plan VTE Prophylaxis will be ordered: No PG Care Time/CCT Total # of Minutes Spent Total Time Spent with Patient: Total time spent is greater than 50% in coordination of care (as documented) at patient's floor/unit and/or counseling patient: Coding Level of Care Code 90281 INT INP/OBS CARE MIN Diagnoses Admission for hospice care Z51.5 Palliative care patient Z51.5 Need for comfort care Prostate cancer metastatic to bone C61; C79.51 Liver metastases C78.7 YASSINE (acute kidney injury) N17.9 Hyperkalemia E87.5
[2022-07-31] MEDS: HYDROmorphone PCA 30 MG/30 ML IV PRN (16:25)
[2022-07-31] MEDS: SODIUM CHLORIDE 0.9% 1000ML 1,000 ML IV SCH ×2 (16:27→21:43)
[2022-07-31] MEDS ORDERED: NALOXONE HCL 0.4 MG/1 ML VIAL/CARP IV PRN (16:27)
[2022-07-31] MEDS: CYCLOBENZAPRINE HCL 10 MG TAB PO SCH (21:11)
[2022-07-31] MEDS: dexAMETHasone 4 MG in SYRINGE 0 ML IV SCH (21:11)
[2022-07-31] MEDS ORDERED: FIRST - Mouthwash BLM 119 ML PO PRN (21:44)
[2022-08-01] MEDS ORDERED: FIRST - Mouthwash BLM 119 ML PO PRN (05:47)
[2022-08-01] MEDS: HYDROmorphone PCA 30 MG/30 ML IV PRN ×2 (07:40→22:38)
[2022-08-01] MEDS: dexAMETHasone 4 MG in SYRINGE 0 ML IV SCH ×2 (07:43→21:35)
[2022-08-01] MEDS: CYCLOBENZAPRINE HCL 10 MG TAB PO SCH ×2 (07:43→21:35)
[2022-08-01] MEDS: LIDOCAINE 5% 1 PATCH TD SCH (07:43)
--- NOTE | 2022-08-01 12:36 | Palliative Care Progress Note ---
Date of Service August 01, 2022 Assessment & Plan (1) Palliative care encounter: (2) Palliative care patient: Plan: INSURANCE ACCOUNT REPRESENTATIVE Patient has been accepted and therefore admitted to [facility]/inpatient hospice with the [facility] hospice team (3) Need for comfort care: Plan: INSURANCE ACCOUNT REPRESENTATIVE in progress (4) Cancer related pain: Plan: * Very severe cancer pain: Today reports pain has improved to a 5-6 out of 10 at rest and he is able to tolerate repositioning and shifting to his side in bed. Still requires the use of pillows as an additional buffer for positioning but states this is more tolerable than it has been in the recent weeks. * I will leave his infusion at Dilaudid 0.7mg per hour continuous with Dilaudid 0.5mg BUILDING ASSOCIATE bolus q10min prn. His TDF conversion equated out to approx 0.66mg/hr Dilaudid equivalent, so bringing his continuos rate to 0.7 is a more equianalgesic replacement. Present on Admission?: Yes Plan Patient remains on comfort care; his family is providing comfort and support, they are expected to arrive later today. Additional psychosocial support and reassurance was provided to patient today. Some local therapy was also done along with a life review. He is at peace with his impending mortality. He acknowledges that he is always trying to live a good life and do right by the people in his life. He hopes that he will have a peaceful . I reiterated to him that we are here to help and should any symptom at any time feel uncontrolled or intensified, he only needs to ask as we have medicines ready and available to help ease his way. He expressed a deep appreciation for all of the care and support he is received tomorrow o rganization both through his cancer journey as well as now during this end-of-life transition. He remains on a liberalized diet, allow all PO as desired for comfort/pleasure The ability for home hospice dc limited by need to manage his very severe, elshwjlykg-hy-byvkmmhn-opiods cancer pain, he has failed oral morphine, oxycodone, OxyContin and transdermal fentanyl. We are seeing signif relief with IV Dilaudid BUILDING ASSOCIATE after 3 cycles of dose adjustments. Radha William DNP Clinical Director, Palliative Medicine Admission and Anticipated Discharge Date Admission Date: July 31, 2022 Subjective Pain management has substantially improved with dose adjustment to the Dilaudid BUILDING ASSOCIATE. He is able to tolerate repositioning in bed, and can move himself around a little bit to his side without as much assistance or difficulty/pain. He remains awake and alert and appropriately interactive. Anticipates that his family will be coming in later this morning or early afternoon but expresses some worry about them having to travel in the snowy weather. He denies any acute nausea or vomiting, appetite has been okay. And he is tolerating his diet reasonably well. Review of Systems Review of Systems: All systems reviewed & are unremarkable except as noted in Subjective Physical Exam Physical Exam: resting in bed, semi reclined. appears uncomfortable but not severe distress. respirations even, not labored and no use of accessory muscles. no conversational dyspnea. HARO weakly but cohesively. Neck supple/no stridor. perrla. eomi's. bitemp wasting noted. chest without rhonchi or wheeze. cardiac tones normal, no jVD. Abd soft, non distended, non tender. +generalized weakness. His lower extremity edema is increasing. Results & Data ([facility]) Vital Signs (Past 12 Hours) Vital Signs O2 Del Method 08/01/22 07:53 Room Air PG Care Time/CCT Total # of Minutes Spent Total Time Spent: 55 Total Time Spent with Patient: Total time spent is greater than 50% in coordination of care (as documented) at patient's floor/unit and/or counseling patient: Prolonged Care Time Prolonged Care Time: No C[place] [address] SUB INP/OBS CARE 3/50MIN Patient Type Established History Detailed Exam Detailed Medical Decision Making Moderate Complexity Diagnoses Palliative care encounter Z51.5 Palliative care patient Z51.5 Need for comfort care Cancer related pain G89.3
[2022-08-01] MEDS: ONDANSETRON INJ 2 MG/ML 2 ML VIAL IV PRN ×2 (15:15→21:44)
--- NOTE | 2022-08-01 18:52 | Hospitalist Progress Note ---
Date of Service August 01, 2022 Assessment & Plan (1) Admission for hospice care: Plan: History of metastatic prostate cancer to bones Appreciate hospice agency support & assistance/recs. Appreciate palliative care team assistance Cont PLANETARIUM TECHNICIAN dilaudid - current settings: basal 0.7mg/hour. Demand dose 0.5mg. Lock-out - 10 minutes. Adjust as needed. Re-ordered other comfort meds - ativan prn, zofran prn, etc. Maintain weathers. Cont flexeril 10mg BID (Chronic med for him). BP meds, etc have been discontinued. (2) Prostate cancer metastatic to bone: Plan: severe mets to bone left hip pain is the worset area of pain cont PLANETARIUM TECHNICIAN dilaudid cont dexamethasone 4mg IV BID for bone pain (3) Liver metastases: Plan: numerous, with largest met in the left lobe the left lobe met is palpable on exam and is tender (4) YASSINE (acute kidney injury): Plan: last documented Cr was ~4.5 with resulting hyperkalemia (5) Hyperkalemia: Plan: last documented K was 5.5 2nd to #6 had been treated with IV calcium/bicarbonate drip/multiple doses of patiromer prior to initiation of comfort care pathway (6) Palliative care encounter: Plan: Abhijit has metastatic prostate cancer to bone, lier etc with refractory and very severe cancer related pain failing multiple oral and transdermal regimen, now improving with infusional Dilaudid. He is coming to terms with his mortality, he is acknowledging that the end is closer. (7) Cancer related pain: Plan: Abhijit has not used PRN doses but still has pain. He is trying "not moving" as a method of keeping pain under control but then gets stiff and uncomfortable. PLANETARIUM TECHNICIAN review is below. I will modestly increase the Dilaudid Continuous infusion rate to 0.8 and PLANETARIUM TECHNICIAN demand dose to 0.6mg for his comfort. I again enocuraged him to use the PLANETARIUM TECHNICIAN button as needed. Plan Dilaudid infusion adjusted as noted above, orders written. I have asked high voltage electrician to visit for ongoing psychosocial support. Additional mgt per hospice. Radha William DNP Clinical Director, Palliative Medicine Admission and Anticipated Discharge Date Admission Date: July 31, 2022 Subjective Metastatic prostate cancer to bones, a terminal stage, consulted with palliative care for pain management, currently on inpatient hospice Physical Exam Physical Exam: General: Awake oriented x3 chest: Clear to auscultation Cardiovascular: Regular rhythm no murmur Abdomen: Soft Extremities: No edema no tenderness Results & Data Results & Data ([facility]) Vital Signs (Past 12 Hours) Vital Signs O2 Del Method 08/01/22 07:53 Room Air PG Care Time/CCT Total # of Minutes Spent Total Time Spent with Patient: Total time spent is greater than 50% in coordination of care (as documented) at patient's floor/unit and/or counseling patient: Coding Level of Care Code 25614 SUB INP/OBS CARE 2/35MIN Diagnoses Admission for hospice care Z51.5 Prostate cancer metastatic to bone C61; C79.51 Liver metastases C78.7 YASSINE (acute kidney injury) N17.9 Hyperkalemia E87.5 Palliative care encounter Z51.5 Cancer related pain G89.3
[2022-08-02] MEDS: SODIUM CHLORIDE 0.9% 1000ML 1,000 ML IV SCH (07:51)
[2022-08-02] MEDS: CYCLOBENZAPRINE HCL 10 MG TAB PO SCH ×2 (09:10→20:39)
[2022-08-02] MEDS: dexAMETHasone 4 MG in SYRINGE 0 ML IV SCH ×2 (09:11→20:39)
[2022-08-02] MEDS: LIDOCAINE 5% 1 PATCH TD SCH (09:11)
[2022-08-02] MEDS: ONDANSETRON INJ 2 MG/ML 2 ML VIAL IV PRN (09:18)
--- NOTE | 2022-08-02 09:57 | Palliative Care Progress Note ---
Date of Service August 02, 2022 Assessment & Plan (1) Palliative care encounter: Plan: Abhijit has metastatic prostate cancer to bone, lier etc with refractory and very severe cancer related pain failing multiple oral and transdermal regimen, now improving with infusional Dilaudid. He is coming to terms with his mortality, he is acknowledging that the end is closer. (2) Cancer related pain: Plan: Abhijit has not used PRN doses but still has pain. He is trying "not moving" as a method of keeping pain under control but then gets stiff and uncomfortable. SPORTS ANCHOR review is below. I will modestly increase the Dilaudid Continuous infusion rate to 0.8 and SPORTS ANCHOR demand dose to 0.6mg for his comfort. I again enocuraged him to use the SPORTS ANCHOR button as needed. (3) Prostate cancer metastatic to bone: (4) Liver metastases: (5) Need for comfort care: (6) Admission for hospice care: Plan Dilaudid infusion adjusted as noted above, orders written. I have asked public address system installer to visit for ongoing psychosocial support. Additional mgt per hospice. Radha William DNP Clinical Director, Palliative Medicine Admission and Anticipated Discharge Date Admission Date: July 31, 2022 Subjective ongoing cancer related pain mgt no new acute concerns this morning pain is running 5-6 at best, 8-9 at worst, does not remember to use SPORTS ANCHOR bolus, at times feeling like since it is better if he doesn't move, he won't take the prn dose as long as he doesn't move. no n/v/d/c appetite ok but not great fatigue and weakness unchanged enjoying time with family has been reconciling his fears about mortality/comings to an acceptance with less fear Review of Systems Review of Systems: All systems reviewed & are unremarkable except as noted in Subjective Physical Exam Physical Exam: resting in bed, semi reclined. appears uncomfortable but not severe distress. respirations even, not labored and no use of accessory muscles. no conversational dyspnea. HARO weakly but cohesively. Neck supple/no stridor. perrla. eomi's. bitemp wasting noted. chest without rhonchi or wheeze. cardiac tones normal, no jVD. Abd soft, non distended, non tender. +generalized weakness. His lower extremity edema is increasing. Results & Data ([facility]) Laboratory Results no new data Diagnostic Findings no new data PG Care Time/CCT Total # of Minutes Spent Total Time Spent: 45 Total Time Spent with Patient: Total time spent is greater than 50% in coordination of care (as documented) at patient's floor/unit and/or counseling patient: Coding [place] [address] SUB INP/OBS CARE 3/50MIN Patient Type Established Medical Decision Making Moderate Complexity Diagnoses Palliative care encounter Z51.5 Cancer related pain G89.3 Prostate cancer metastatic to bone C61; C79.51 Liver metastases C78.7 Need for comfort care Admission for hospice care Z51.5
--- NOTE | 2022-08-02 18:11 | Hospitalist Progress Note ---
Date of Service August 02, 2022 Assessment & Plan (1) Admission for hospice care: Plan: History of metastatic prostate cancer to bones Appreciate hospice agency support & assistance/recs. Appreciate palliative care team assistance Cont DIGITAL SPECIALIST dilaudid - current settings: basal 0.7mg/hour. Demand dose 0.5mg. Lock-out - 10 minutes. Adjust as needed. Re-ordered other comfort meds - ativan prn, zofran prn, etc. Maintain weathers. Cont flexeril 10mg BID (Chronic med for him). BP meds, etc have been discontinued. (2) Prostate cancer metastatic to bone: Plan: severe mets to bone left hip pain is the worset area of pain cont DIGITAL SPECIALIST dilaudid cont dexamethasone 4mg IV BID for bone pain (3) Liver metastases: Plan: numerous, with largest met in the left lobe the left lobe met is palpable on exam and is tender (4) YASSINE (acute kidney injury): Plan: last documented Cr was ~4.5 with resulting hyperkalemia (5) Hyperkalemia: Plan: last documented K was 5.5 2nd to #6 had been treated with IV calcium/bicarbonate drip/multiple doses of patiromer prior to initiation of comfort care pathway (6) Palliative care encounter: Plan: bAhijit has metastatic prostate cancer to bone, lier etc with refractory and very severe cancer related pain failing multiple oral and transdermal regimen, now improving with infusional Dilaudid. He is coming to terms with his mortality, he is acknowledging that the end is closer. (7) Cancer related pain: Plan: Abhijit has not used PRN doses but still has pain. He is trying "not moving" as a method of keeping pain under control but then gets stiff and uncomfortable. DIGITAL SPECIALIST review is below. I will modestly increase the Dilaudid Continuous infusion rate to 0.8 and DIGITAL SPECIALIST demand dose to 0.6mg for his comfort. I again enocuraged him to use the DIGITAL SPECIALIST button as needed. Plan Dilaudid infusion adjusted as noted above, orders written. I have asked community assistant to visit for ongoing psychosocial support. Additional mgt per hospice. Radha William DNP Clinical Director, Palliative Medicine Admission and Anticipated Discharge Date Admission Date: July 31, 2022 Subjective Metastatic prostate cancer to bones, a terminal stage, consulted with palliative care for pain management, currently on inpatient hospice spoke to the patient and the family Review of Systems Review of Systems: gen - tired, fatigued, poor appetite, weight loss mouth - dryness, some discomfort cv - no chest pain pulm - no dyspnea GI - upper abd pain, constipation - weathers in place musculo - severe L hip pain; denies pain other locations neuro - no headache psych - depressed Physical Exam Physical Exam: General: Awake oriented x3 chest: Clear to auscultation Cardiovascular: Regular rhythm no murmur Abdomen: Soft Extremities: No edema no tenderness Results & Data Results & Data ([facility]) Vital Signs (Past 12 Hours) Vital Signs O2 Del Method 08/02/22 09:30 Room Air PG Care Time/CCT Total # of Minutes Spent Total Time Spent with Patient: Total time spent is greater than 50% in coordination of care (as documented) at patient's floor/unit and/or counseling patient: Coding Level of Care Code 42473 SUB INP/OBS CARE 2/35MIN Diagnoses Admission for hospice care Z51.5 Prostate cancer metastatic to bone C61; C79.51 Liver metastases C78.7 YASSINE (acute kidney injury) N17.9 Hyperkalemia E87.5 Palliative care encounter Z51.5 Cancer related pain G89.3
[2022-08-02] MEDS ORDERED: HALOPERIDOL LACTATE 5 MG/ML 1 ML VIAL IM PRN (22:10)
[2022-08-03] MEDS: HYDROmorphone PCA 30 MG/30 ML IV PRN (02:32)
[2022-08-03] MEDS: CYCLOBENZAPRINE HCL 10 MG TAB PO SCH ×2 (09:26→20:04)
[2022-08-03] MEDS: dexAMETHasone 4 MG in SYRINGE 0 ML IV SCH ×2 (09:26→20:42)
[2022-08-03] MEDS: LIDOCAINE 5% 1 PATCH TD SCH (09:26)
--- NOTE | 2022-08-03 12:20 | Palliative Care Progress Note ---
Date of Service August 03, 2022 Assessment & Plan (1) Palliative care encounter: Plan: Abhijit has metastatic prostate cancer to bone, liver etc with refractory and very severe cancer related pain. He did not have relief with multiple oral and transdermal regimens, therefore we initiated infusional Dilaudid and have had to steadily modify dosing, which is leading to slow improvement. He does not always use the BACK FILLER OPERATOR bolus dosing but when he does, there is better relief. He is coming to terms with his mortality, he is acknowledging that the end is closer. Pharmacovigilance Specialist visits are helping. (2) Cancer related pain: Plan: Abhijit has used only 4 PRN doses with 7 attempts and continues to have pain. He avoids moving to keep pain under control. I will modestly increase the Dilaudid Continuous infusion rate to 0.9 and leave BACK FILLER OPERATOR demand dose at 0.6mg/NO change. He needs encouragement to use the BACK FILLER OPERATOR button as needed. (3) Prostate cancer metastatic to bone: (4) Liver metastases: (5) Need for comfort care: Plan: GIP severe cancer pain, refractory (6) Admission for hospice care: Plan Dilaudid infusion adjusted as noted above, orders written. Pharmacovigilance Specialist Joy/ongoing psychosocial support. Additional mgt per hospice. Radha William DNP Clinical Director, Palliative Medicine Admission and Anticipated Discharge Date Admission Date: July 31, 2022 Subjective on [facility] hospice Pain is still an issue, average 6/10 at rest, movement will worsen it such as trying to sit at edge of bed not using BACK FILLER OPERATOR bolus doses very often -had 7 attempts and 4 doses given Review of Systems Review of Systems: All systems reviewed & are unremarkable except as noted in Subjective Physical Exam Physical Exam: resting in bed, semi reclined. appears uncomfortable but not severe distress. respirations even, not labored and no use of accessory muscles. no conversational dyspnea. HARO weakly but cohesively. Neck supple/no stridor. perrla. eomi's. bitemp wasting noted. chest without rhonchi or wheeze. cardiac tones normal, no jVD. Abd soft, non distended, non tender. +generalized weakness. His lower extremity edema is increasing. PG Care Time/CCT Total # of Minutes Spent Total Time Spent: 55 Total Time Spent with Patient: Total time spent is greater than 50% in coordination of care (as documented) at patient's floor/unit and/or counseling patient: Coding [place] [address] SUB INP/OBS CARE 3/50MIN Patient Type Established History Detailed Exam Detailed Medical Decision Making Moderate Complexity Diagnoses Palliative care encounter Z51.5 Cancer related pain G89.3 Prostate cancer metastatic to bone C61; C79.51 Liver metastases C78.7 Need for comfort care Admission for hospice care Z51.5
[2022-08-03] MEDS: SODIUM CHLORIDE 0.9% 1000ML 1,000 ML IV SCH (17:15)
--- NOTE | 2022-08-03 18:32 | Hospitalist Progress Note ---
Date of Service August 03, 2022 Assessment & Plan (1) Admission for hospice care: Plan: History of metastatic prostate cancer to bones Appreciate hospice agency support & assistance/recs. Appreciate palliative care team assistance Pain is still an issue, average 6/10 at rest, movement will worsen it such as trying to sit at edge of bed Dilaudid infusion changed to continuous rate 1 mg per hour with 0.8mg TOPOLOGY PROFESSOR q10min prn. Re-ordered other comfort meds - ativan prn, zofran prn, etc. Maintain weathers. Cont flexeril 10mg BID (Chronic med for him). BP meds, etc have been discontinued. (2) Prostate cancer metastatic to bone: Plan: severe mets to bone left hip pain is the worset area of pain cont TOPOLOGY PROFESSOR dilaudid cont dexamethasone 4mg IV BID for bone pain (3) Liver metastases: Plan: numerous, with largest met in the left lobe the left lobe met is palpable on exam and is tender (4) YASSINE (acute kidney injury): Plan: last documented Cr was ~4.5 with resulting hyperkalemia (5) Hyperkalemia: Plan: last documented K was 5.5 2nd to #6 had been treated with IV calcium/bicarbonate drip/multiple doses of patiromer prior to initiation of comfort care pathway (6) Palliative care encounter: Plan: Abhijit has metastatic prostate cancer to bone, lier etc with refractory and very severe cancer related pain failing multiple oral and transdermal regimen, now improving with infusional Dilaudid. He is coming to terms with his mortality, he is acknowledging that the end is closer. (7) Cancer related pain: Plan: Abhijit has not used PRN doses but still has pain. He is trying "not moving" as a method of keeping pain under control but then gets stiff and uncomfortable. TOPOLOGY PROFESSOR review is below. I will modestly increase the Dilaudid Continuous infusion rate to 0.8 and TOPOLOGY PROFESSOR demand dose to 0.6mg for his comfort. I again enocuraged him to use the TOPOLOGY PROFESSOR button as needed. Plan Dilaudid infusion adjusted as noted above, orders written. I have asked customs entry writer to visit for ongoing psychosocial support. Additional mgt per hospice. Radha William DNP Clinical Director, Palliative Medicine Admission and Anticipated Discharge Date Admission Date: July 31, 2022 Subjective on [facility] hospice Pain is still an issue,Dilaudid infusion changed to continuous rate 1 mg per hour with 0.8mg TOPOLOGY PROFESSOR q10min prn. Physical Exam Physical Exam: General: Awake oriented x3 chest: Clear to auscultation Cardiovascular: Regular rhythm no murmur Abdomen: Soft Extremities: No edema no tenderness Results & Data Results & Data ([facility]) Vital Signs (Past 12 Hours) Vital Signs O2 Del Method 08/03/22 10:00 Room Air PG Care Time/CCT Total # of Minutes Spent Total Time Spent with Patient: Total time spent is greater than 50% in coordination of care (as documented) at patient's floor/unit and/or counseling patient: Coding Level of Care Code 28031 SUB INP/OBS CARE 2/35MIN Diagnoses Admission for hospice care Z51.5 Prostate cancer metastatic to bone C61; C79.51 Liver metastases C78.7 YASSINE (acute kidney injury) N17.9 Hyperkalemia E87.5 Palliative care encounter Z51.5 Cancer related pain G89.3
[2022-08-04] MEDS: HYDROmorphone PCA 30 MG/30 ML IV PRN ×2 (00:06→16:31)
[2022-08-04] MEDS: dexAMETHasone 4 MG in SYRINGE 0 ML IV SCH ×2 (09:10→20:16)
[2022-08-04] MEDS: LIDOCAINE 5% 1 PATCH TD SCH (09:10)
[2022-08-04] MEDS: CYCLOBENZAPRINE HCL 10 MG TAB PO SCH ×2 (09:10→20:16)
[2022-08-04] MEDS: SODIUM CHLORIDE 0.9% 1000ML 1,000 ML IV SCH (17:41)
--- NOTE | 2022-08-04 20:02 | Hospitalist Progress Note ---
Date of Service August 04, 2022 Assessment & Plan (1) Admission for hospice care: Plan: History of metastatic prostate cancer to bones Appreciate hospice agency support & assistance/recs. Appreciate palliative care team assistance Pain is still an issue, average 6/10 at rest, movement will worsen it such as trying to sit at edge of bed Dilaudid infusion changed to continuous rate 1 mg per hour with 0.8mg FILM DEVELOPING MACHINE OPERATOR q10min prn. Re-ordered other comfort meds - ativan prn, zofran prn, etc. Maintain weathers. Cont flexeril 10mg BID (Chronic med for him). BP meds, etc have been discontinued. (2) Prostate cancer metastatic to bone: Plan: severe mets to bone left hip pain is the worset area of pain cont FILM DEVELOPING MACHINE OPERATOR dilaudid cont dexamethasone 4mg IV BID for bone pain (3) Liver metastases: Plan: numerous, with largest met in the left lobe the left lobe met is palpable on exam and is tender (4) YASSINE (acute kidney injury): Plan: last documented Cr was ~4.5 with resulting hyperkalemia (5) Hyperkalemia: Plan: last documented K was 5.5 2nd to #6 had been treated with IV calcium/bicarbonate drip/multiple doses of patiromer prior to initiation of comfort care pathway (6) Palliative care encounter: Plan: Abhijit has metastatic prostate cancer to bone, lier etc with refractory and very severe cancer related pain failing multiple oral and transdermal regimen, now improving with infusional Dilaudid. He is coming to terms with his mortality, he is acknowledging that the end is closer. (7) Cancer related pain: Plan: Abhijit has not used PRN doses but still has pain. He is trying "not moving" as a method of keeping pain under control but then gets stiff and uncomfortable. FILM DEVELOPING MACHINE OPERATOR review is below. I will modestly increase the Dilaudid Continuous infusion rate to 0.8 and FILM DEVELOPING MACHINE OPERATOR demand dose to 0.6mg for his comfort. I again enocuraged him to use the FILM DEVELOPING MACHINE OPERATOR button as needed. Plan Dilaudid infusion adjusted as noted above, orders written. I have asked rand butter to visit for ongoing psychosocial support. Additional mgt per hospice. Radha William DNP Clinical Director, Palliative Medicine Admission and Anticipated Discharge Date Admission Date: July 31, 2022 Subjective on [facility] hospice Pain is still an issue,Dilaudid infusion changed to continuous rate 1 mg per hour with 0.8mg FILM DEVELOPING MACHINE OPERATOR q10min prn. Physical Exam Physical Exam: General: Awake oriented x3 chest: Clear to auscultation Cardiovascular: Regular rhythm no murmur Abdomen: Soft Extremities: No edema no tenderness PG Care Time/CCT Total # of Minutes Spent Total Time Spent with Patient: Total time spent is greater than 50% in coordination of care (as documented) at patient's floor/unit and/or counseling patient: Coding Level of Care Code 23768 SUB INP/OBS CARE 08/01MIN Diagnoses Admission for hospice care Z51.5 Prostate cancer metastatic to bone C61; C79.51 Liver metastases C78.7 YASSINE (acute kidney injury) N17.9 Hyperkalemia E87.5 Palliative care encounter Z51.5 Cancer related pain G89.3
[2022-08-05] MEDS: SODIUM CHLORIDE 0.9% 1000ML 1,000 ML IV SCH (02:45)
[2022-08-05] MEDS: LIDOCAINE 5% 1 PATCH TD SCH (11:08)
[2022-08-05] MEDS: CYCLOBENZAPRINE HCL 10 MG TAB PO SCH ×2 (11:08→19:25)
[2022-08-05] MEDS: dexAMETHasone 4 MG in SYRINGE 0 ML IV SCH ×2 (11:09→19:25)
[2022-08-05] MEDS: HYDROmorphone PCA 30 MG/30 ML IV PRN (13:13)
--- NOTE | 2022-08-05 17:42 | Hospitalist Progress Note ---
Date of Service August 05, 2022 Assessment & Plan (1) Admission for hospice care: Plan: History of metastatic prostate cancer to bones Appreciate hospice agency support & assistance/recs. Appreciate palliative care team assistance Pain is still an issue, average 6/10 at rest, movement will worsen it such as trying to sit at edge of bed Dilaudid infusion changed to continuous rate 1 mg per hour with 0.8mg INDUSTRIAL SPRAY PAINTER q10min prn. Re-ordered other comfort meds - ativan prn, zofran prn, etc. Maintain weathers. Cont flexeril 10mg BID (Chronic med for him). BP meds, etc have been discontinued. (2) Prostate cancer metastatic to bone: Plan: severe mets to bone left hip pain is the worset area of pain cont INDUSTRIAL SPRAY PAINTER dilaudid cont dexamethasone 4mg IV BID for bone pain (3) Liver metastases: Plan: numerous, with largest met in the left lobe the left lobe met is palpable on exam and is tender (4) YASSINE (acute kidney injury): Plan: last documented Cr was ~4.5 with resulting hyperkalemia (5) Hyperkalemia: Plan: last documented K was 5.5 2nd to #6 had been treated with IV calcium/bicarbonate drip/multiple doses of patiromer prior to initiation of comfort care pathway (6) Palliative care encounter: Plan: Abhijit has metastatic prostate cancer to bone, lier etc with refractory and very severe cancer related pain failing multiple oral and transdermal regimen, now improving with infusional Dilaudid. He is coming to terms with his mortality, he is acknowledging that the end is closer. (7) Cancer related pain: Plan: Abhijit has not used PRN doses but still has pain. He is trying "not moving" as a method of keeping pain under control but then gets stiff and uncomfortable. INDUSTRIAL SPRAY PAINTER review is below. I will modestly increase the Dilaudid Continuous infusion rate to 0.8 and INDUSTRIAL SPRAY PAINTER demand dose to 0.6mg for his comfort. I again enocuraged him to use the INDUSTRIAL SPRAY PAINTER button as needed. Plan Dilaudid infusion adjusted as noted above, orders written. I have asked sammying machine operator to visit for ongoing psychosocial support. Additional mgt per hospice. Radha William DNP Clinical Director, Palliative Medicine Admission and Anticipated Discharge Date Admission Date: July 31, 2022 Subjective No active issue today, pain is fairly managed PG Care Time/CCT Total # of Minutes Spent Total Time Spent with Patient: Total time spent is greater than 50% in coordination of care (as documented) at patient's floor/unit and/or counseling patient: Coding Level of Care Code 93635 SUB INP/OBS CARE 1/25MIN Diagnoses Admission for hospice care Z51.5 Prostate cancer metastatic to bone C61; C79.51 Liver metastases C78.7 YASSINE (acute kidney injury) N17.9 Hyperkalemia E87.5 Palliative care encounter Z51.5 Cancer related pain G89.3
[2022-08-06] MEDS: CYCLOBENZAPRINE HCL 10 MG TAB PO SCH ×2 (09:12→20:14)
[2022-08-06] MEDS: LIDOCAINE 5% 1 PATCH TD SCH (09:12)
[2022-08-06] MEDS: dexAMETHasone 4 MG in SYRINGE 0 ML IV SCH ×2 (09:13→20:14)
[2022-08-06] MEDS: HYDROmorphone PCA 30 MG/30 ML IV PRN (10:28)
--- NOTE | 2022-08-06 13:54 | Palliative Care Progress Note ---
Date of Service August 06, 2022 Assessment & Plan (1) Palliative care encounter: Plan: Abhijit has metastatic prostate cancer to bone, liver etc with refractory and very severe cancer related pain. He did not have relief with multiple oral and transdermal regimens, therefore we initiated infusional Dilaudid and have had to steadily modify dosing, which is leading to slow improvement. He does not always use the DOOR TO DOOR LEAD GENERATION bolus dosing but when he does, there is better re lief. he has used 3 PRN doses in last review, pain cotrol about 5/10 (2) Cancer related pain: Plan: Abhijit has used only3 PRN doses with 3 attempts, pain is 5/10 at rest. he still tries to avoid moving to keep pain under control. I will modestly increase the Dilaudid Continuous infusion rate to 0.9 and leave DOOR TO DOOR LEAD GENERATION demand dose at 0.6mg/NO change. He needs encouragement to use the DOOR TO DOOR LEAD GENERATION button as needed. (3) Need for comfort care: Plan: GIP severe cancer pain, refractory (4) Admission for hospice care: (5) Prostate cancer metastatic to bone: (6) Liver metastases: Plan Continue Dilaudid infusion Ongoing psychosocial support. Placement efforts underway with CM Additional mgt per hospice. Radha William DNP Clinical Director, Palliative Medicine Admission and Anticipated Discharge Date Admission Date: July 31, 2022 Review of Systems Review of Systems: All systems reviewed & are unremarkable except as noted in Subjective Physical Exam Physical Exam: resting in bed, semi reclined. appears uncomfortable but not severe distress. respirations even, not labored and no use of accessory muscles. no conversational dyspnea. HARO weakly but cohesively. Neck supple/no stridor. perrla. eomi's. bitemp wasting noted. chest without rhonchi or wheeze. cardiac tones normal, no jVD. Abd soft, non distended, non tender. +generalized weakness. His lower extremity edema is increasing. Results & Data ([facility]) Vital Signs (Past 12 Hours) Vital Signs Temp Pulse Resp BP Pulse Ox O2 Del Method 08/06/22 07:15 36.4 C L 126 H 16 148/98 H 96 Room Air Laboratory Results none Diagnostic Findings none Medications Administered PG Care Time/CCT Total # of Minutes Spent Total Time Spent: 35 Total Time Spent with Patient: Total time spent is greater than 50% in coordination of care (as documented) at patient's floor/unit and/or counseling patient: C[place] [address] SUB INP/OBS CARE 235MIN Patient Type Established History Expanded Problem Focused Exam Detailed Medical Decision Making Moderate Complexity Diagnoses Palliative care encounter Z51.5 Cancer related pain G89.3 Need for comfort care Admission for hospice care Z51.5 Prostate cancer metastatic to bone C61; C79.51 Liver metastases C78.7
[2022-08-06] MEDS: SODIUM CHLORIDE 0.9% 1000ML 1,000 ML IV SCH (14:22)
--- NOTE | 2022-08-06 22:35 | Hospitalist Progress Note ---
Date of Service August 06, 2022 Assessment & Plan (1) Admission for hospice care: Plan: History of metastatic prostate cancer to bones Appreciate hospice agency support & assistance/recs. Appreciate palliative care team assistance Pain is still an issue, average 6/10 at rest, movement will worsen it such as trying to sit at edge of bed Dilaudid infusion changed to continuous rate 1 mg per hour with 0.8mg ORAL SURGERY ASSISTANT q10min prn. Re-ordered other comfort meds - ativan prn, zofran prn, etc. Maintain weathers. Cont flexeril 10mg BID (Chronic med for him). BP meds, etc have been discontinued. (2) Prostate cancer metastatic to bone: Plan: severe mets to bone left hip pain is the worset area of pain cont ORAL SURGERY ASSISTANT dilaudid cont dexamethasone 4mg IV BID for bone pain (3) Liver metastases: Plan: numerous, with largest met in the left lobe the left lobe met is palpable on exam and is tender (4) YASSINE (acute kidney injury): Plan: last documented Cr was ~4.5 with resulting hyperkalemia (5) Hyperkalemia: Plan: last documented K was 5.5 2nd to #6 had been treated with IV calcium/bicarbonate drip/multiple doses of patiromer prior to initiation of comfort care pathway (6) Palliative care encounter: Plan: Abhijit has metastatic prostate cancer to bone, lier etc with refractory and very severe cancer related pain failing multiple oral and transdermal regimen, now improving with infusional Dilaudid. He is coming to terms with his mortality, he is acknowledging that the end is closer. (7) Cancer related pain: Plan: Abhijit has not used PRN doses but still has pain. He is trying "not moving" as a method of keeping pain under control but then gets stiff and uncomfortable. ORAL SURGERY ASSISTANT review is below. I will modestly increase the Dilaudid Continuous infusion rate to 0.8 and ORAL SURGERY ASSISTANT demand dose to 0.6mg for his comfort. I again enocuraged him to use the ORAL SURGERY ASSISTANT button as needed. Plan Dilaudid infusion adjusted as noted above, orders written. I have asked head of partner development to visit for ongoing psychosocial support. Additional mgt per hospice. Radha William DNP Clinical Director, Palliative Medicine Admission and Anticipated Discharge Date Admission Date: July 31, 2022 Subjective No active issue today, pain is fairly managed, visited by palliative care, pending placement PG Care Time/CCT Total # of Minutes Spent Total Time Spent with Patient: Total time spent is greater than 50% in coordination of care (as documented) at patient's floor/unit and/or counseling patient: Coding Level of Care Code 66671 SUB INP/OBS CARE 08/01MIN Diagnoses Admission for hospice care Z51.5 Prostate cancer metastatic to bone C61; C79.51 Liver metastases C78.7 YASSINE (acute kidney injury) N17.9 Hyperkalemia E87.5 Palliative care encounter Z51.5 Cancer related pain G89.3
[2022-08-07] MEDS: HYDROmorphone PCA 30 MG/30 ML IV PRN (07:11)
--- NOTE | 2022-08-07 08:39 | Palliative Care Progress Note ---
Date of Service August 07, 2022 at 0800 Assessment & Plan (1) Palliative care encounter: Plan: Abhijit has metastatic prostate cancer to bone, liver etc with refractory and very severe cancer related pain. He did not have relief with multiple oral and transdermal regimens, therefore we initiated infusional Dilaudid and have been steadily escalating dosing, which is leading to modest improvement. He does not always use the PADDING GLUER bolus dosing but when he does, there is better relief. he has used 3 PRN doses in last review, pain control about 9/10 at time fo my visit Abhijit and I discussed the option of making a more significant increase to PADDING GLUER to improve pain. Right now it can be so severe he imply avoids much movement but this can be even to reach for a drink. He is AAOx3, tolerating medication and desires to be more comfortable. He is aware the higher doses can lead to some sedation as a side effect which he accepts in return for improved comfort and relief of very severe / refractory cancer pain. (2) Cancer related pain: Plan: Abhijit has used only 2 PRN doses with 2 attempts, pain is 9/10 at rest today . he still tries to avoid moving to keep pain under control. I will modestly increase the Dilaudid Continuous infusion rate to 1.2mg per hour and I will increased PADDING GLUER demand dose at 0.9mg, orders written. He needs encouragement to use the PADDING GLUER button as needed. (3) Need for comfort care: Plan: GIP severe cancer pain, refractory (4) Admission for hospice care: (5) Prostate cancer metastatic to bone: (6) Liver metastases: Plan For very severe cancer pain mgt: Abhijit has used only 2 PRN doses with 2 attempts, pain is 9/10 at rest today. he still tries to avoid moving to keep pain under control. I am increasing his Dilaudid to 1.2mg per hour with 0.9mg PADDING GLUER q10min prn breakthrough pain, orders have been written. Patient is in agreement with this dose escalation, see discussion above. Ongoing psychosocial support. he has come to terms with mortality but now starting to feel "it's kind of dragging out, all I know is that i just want to feel better somehow, less pain and get out of here hopefully." Placement efforts underway with CM Additional mgt per hospice. Radha William DNP Clinical Director, Palliative Medicine Admission and Anticipated Discharge Date Admission Date: July 31, 2022 Subjective Abhijit remains on comfort care/EOL care, met prostate ca with widespread bony mets and very severe cancer related pain that has been refractory to various oral and transdermal opioid medications. He was then transitioned to Dilaudid PADDING GLUER, which has required multiple dose escalations, pain continues to slowly improve but has not been dramatic. He tells me pain just hums along there in the back ground, it's about a 9/10 right now but I was eating rbeakfast and moving a bit so that's probably why." At rest he feels pain 6/10. He was accepted for [facility] hospice and he is awaiting placement at SNF for continued EOL care. His sister and return to [place] today. he is a little withdrawn about this, and mood is noted to be subdued. No change to energy level - still low. Appetite ok, not great but sometimes hard to find food he likes from daily menu. Denies n/v/d/c has not been getting OOB, pain becomes too severe. Has come to accept more of his impending mortality, noting that there is not anything he can do to change the course. He is sad about nto being able to return home/have dtr care for him AT[facility] or to his friend's house but he does understand why those options were not feasible for him at this junction. Review of Systems Review of Systems: All systems reviewed & are unremarkable except as noted in Subjective Physical Exam Physical Exam: Abhijit is resting in bed, semi reclined. +bitemp wasting noted. perrla. eomi's. Dentition poor. + uncomfortable, moderate distress. respirations even, not labored and no use of accessory muscles. no conversational dyspnea. HARO weakly but cohesively. Neck supple/no stridor. Chest without rhonchi or wheeze. S1S2, no JVD. Abd soft, non distended, non tender. +generalized weakness. +BLE edema +2. Remains AAOx3. Results & Data ([facility]) Laboratory Results no new data Diagnostic Findings no new data PG Care Time/CCT Total # of Minutes Spent Total Time Spent: 55 Total Time Spent with Patient: Total time spent is greater than 50% in coordination of care (as documented) at patient's floor/unit and/or counseling patient: Coding [place] [address] SUB INP/OBS CARE 350MIN Patient Type Established History Detailed Exam Detailed Medical Decision Making High Complexity Diagnoses Palliative care encounter Z51.5 Cancer related pain G89.3 Need for comfort care Admission for hospice care Z51.5 Prostate cancer metastatic to bone C61; C79.51 Liver metastases C78.7
[2022-08-07] MEDS: dexAMETHasone 4 MG in SYRINGE 0 ML IV SCH ×2 (09:14→21:27)
[2022-08-07] MEDS: CYCLOBENZAPRINE HCL 10 MG TAB PO SCH ×2 (09:14→21:27)
[2022-08-07] MEDS: LIDOCAINE 5% 1 PATCH TD SCH (09:15)
--- NOTE | 2022-08-07 17:40 | Hospitalist Progress Note ---
Date of Service August 07, 2022 Assessment & Plan (1) Admission for hospice care: Plan: History of metastatic prostate cancer to bones Appreciate hospice agency support & assistance/recs. Appreciate palliative care team assistance Pain is still an issue, average 6/10 at rest, movement will worsen it such as trying to sit at edge of bed Dilaudid infusion changed to continuous rate 1 mg per hour with 0.8mg INSPECTOR BALL POINTS q10min prn. BP meds, etc have been discontinued. (2) Prostate cancer metastatic to bone: Plan: severe mets to bone left hip pain is the worset area of pain cont INSPECTOR BALL POINTS dilaudid cont dexamethasone 4mg IV BID for bone pain (3) Liver metastases: Plan: numerous, with largest met in the left lobe the left lobe met is palpable on exam and is tender (4) YASSINE (acute kidney injury): Plan: last documented Cr was ~4.5 with resulting hyperkalemia (5) Hyperkalemia: Plan: last documented K was 5.5 2nd to #6 had been treated with IV calcium/bicarbonate drip/multiple doses of patiromer pr ior to initiation of comfort care pathway (6) Palliative care encounter: Plan: Abhijit has metastatic prostate cancer to bone, lier etc with refractory and very severe cancer related pain failing multiple oral and transdermal regimen, now improving with infusional Dilaudid. He is coming to terms with his mortality, he is acknowledging that the end is closer. (7) Cancer related pain: Plan: Abhijit has not used PRN doses but still has pain. He is trying "not moving" as a method of keeping pain under control but then gets stiff and uncomfortable. INSPECTOR BALL POINTS review is below. I will modestly increase the Dilaudid Continuous infusion rate to 0.8 and INSPECTOR BALL POINTS demand dose to 0.6mg for his comfort. I again enocuraged him to use the INSPECTOR BALL POINTS button as needed. Plan Dilaudid infusion adjusted as noted above, orders written. I have asked insurance professional to visit for ongoing psychosocial support. Additional mgt per hospice. Radha William DNP Clinical Director, Palliative Medicine Admission and Anticipated Discharge Date Admission Date: July 31, 2022 Subjective met prostate ca with widespread bony mets and very severe cancer related pain that has been refractory to various oral and transdermal opioid medications. He was then transitioned to Dilaudid INSPECTOR BALL POINTS, which has required multiple dose escalati ons, He was accepted for [facility] hospice and he is awaiting placement at SNF for continued EOL care. Discussed with the casework specialist pending for placement PG Care Time/CCT Total # of Minutes Spent Total Time Spent with Patient: Total time spent is greater than 50% in coordination of care (as documented) at patient's floor/unit and/or counseling patient: Coding Level of Care Code 22450 SUB INP/OBS CARE 2/35MIN Diagnoses Admission for hospice care Z51.5 Prostate cancer metastatic to bone C61; C79.51 Liver metastases C78.7 YASSINE (acute kidney injury) N17.9 Hyperkalemia E87.5 Palliative care encounter Z51.5 Cancer related pain G89.3
[2022-08-07] MEDS: SODIUM CHLORIDE 0.9% 1000ML 1,000 ML IV SCH (22:17)
[2022-08-08] MEDS: HYDROmorphone PCA 30 MG/30 ML IV PRN (05:50)
[2022-08-08] MEDS: LIDOCAINE 5% 1 PATCH TD SCH (08:15)
[2022-08-08] MEDS: dexAMETHasone 4 MG in SYRINGE 0 ML IV SCH ×2 (08:15→19:57)
[2022-08-08] MEDS: CYCLOBENZAPRINE HCL 10 MG TAB PO SCH ×2 (08:15→19:57)
--- NOTE | 2022-08-08 16:47 | Hospitalist Progress Note ---
Date of Service August 08, 2022 Assessment & Plan (1) Admission for hospice care: Plan: History of metastatic prostate cancer to bones Appreciate hospice agency support & assistance/recs. Appreciate palliative care team assistance Pain is still an issue, average 6/10 at rest, movement will worsen it such as trying to sit at edge of bed Dilaudid infusion changed to continuous rate 1 mg per hour with 0.8mg PRIMARY CARE PROVIDER q10min prn. BP meds, etc have been discontinued in keeping with Hospice philosophy (2) Prostate cancer metastatic to bone: Plan: severe mets to bone left hip pain is the worset area of pain cont PRIMARY CARE PROVIDER dilaudid cont dexamethasone 4mg IV BID for bone pain (3) Liver metastases: Plan: numerous, with largest met in the left lobe the left lobe met is palpable on exam and is tender (4) YASSINE (acute kidney injury): Plan: last documented Cr was ~4.5 with resulting hyperkalemia (5) Hyperkalemia: Plan: monitor (6) Palliative care encounter: Plan: Abhijit has metastatic prostate cancer to bone, lier etc with refractory and very severe cancer related pain failing multiple oral and transdermal regimen, now improving with infusional Dilaudid. He is coming to terms with his mortality, he is acknowledging that the end is closer. (7) Cancer related pain: Plan Awaiting placement at SNF Admission and Anticipated Discharge Date Admission Date: July 31, 2022 Subjective patient seen and examined, awaiting placement at SNF, currently enrolled in hospice Review of Systems Review of Systems: All systems reviewed are negative, apart from the ones contained in the history. Physical Exam Physical Exam: The patient is awake, alert and oriented 3, chronically ill looking, pale HEENT--PERRL, EOMI, mucous membranes and oropharynx mildly dry Neck--supple. No JVD. No bruits. Thyroid normal, trachea midline, no adenopathy. Heart--normal S1 and S2. No murmurs, rubs or gallops. Lungs--clear bilaterally, no respiratory distress, no accessory muscle use. Abdomen--some distension Extremities--bilateral leg edema Dermatologic--normal skin turgor, normal color, no abnormal lymph nodes, no rash. Neurologic--cranial nerves II through XII grossly intact. Rheumatologic--normal range of motion. Psychiatric--normal affect. Results & Data Results & Data ([facility]) Vital Signs (Past 12 Hours) Vital Signs O2 Del Method 08/08/22 08:00 Room Air PG Care Time/CCT Total # of Minutes Spent Total Time Spent with Patient: Total time spent is greater than 50% in coordination of care (as documented) at patient's floor/unit and/or counseling patient: Coding Level of Care Code 91361 SUB INP/OBS CARE 2/35MIN Diagnoses Admission for hospice care Z51.5 Prostate cancer metastatic to bone C61; C79.51 Liver metastases C78.7 YASSINE (acute kidney injury) N17.9 Hyperkalemia E87.5 Palliative care encounter Z51.5 Cancer related pain G89.3 Time Spent (min) 35
[2022-08-09] MEDS: HYDROmorphone PCA 30 MG/30 ML IV PRN ×2 (00:51→21:12)
[2022-08-09] MEDS: SODIUM CHLORIDE 0.9% 1000ML 1,000 ML IV SCH (07:20)
[2022-08-09] MEDS: LIDOCAINE 5% 1 PATCH TD SCH (09:38)
[2022-08-09] MEDS: CYCLOBENZAPRINE HCL 10 MG TAB PO SCH ×2 (09:38→21:05)
[2022-08-09] MEDS: dexAMETHasone 4 MG in SYRINGE 0 ML IV SCH ×2 (09:38→21:05)
--- NOTE | 2022-08-09 14:06 | Hospitalist Progress Note ---
Date of Service August 09, 2022 Assessment & Plan (1) Admission for hospice care: Plan: History of metastatic prostate cancer to bones Appreciate hospice agency support & assistance/recs. Appreciate palliative care team assistance Pain is still an issue, average 6/10 at rest, movement will worsen it such as trying to sit at edge of bed Dilaudid infusion changed to continuous rate 1 mg per hour with 0.8mg RADIO DIVISION LIEUTENANT q10min prn. BP meds, etc have been discontinued in keeping with Hospice philosophy (2) Prostate cancer metastatic to bone: Plan: severe mets to bone left hip pain is the worset area of pain cont RADIO DIVISION LIEUTENANT dilaudid cont dexamethasone 4mg IV BID for bone pain (3) Liver metastases: Plan: numerous, with largest met in the left lobe the left lobe met is palpable on exam and is tender (4) YASSINE (acute kidney injury): Plan: last documented Cr was ~4.5 with resulting hyperkalemia (5) Hyperkalemia: Plan: monitor (6) Palliative care encounter: Plan: Abhijit has metastatic prostate cancer to bone, lier etc with refractory and very severe cancer related pain failing multiple oral and transdermal regimen, now improving with infusional Dilaudid. He is coming to terms with his mortality, he is acknowledging that the end is closer. (7) Cancer related pain: Plan Awaiting placement at [facility], [facility] likely to accept Admission and Anticipated Discharge Date Admission Date: July 31, 2022 Subjective patient seen and examined, awaiting placement at SNF, currently enrolled in hospice Review of Systems Review of Systems: All systems reviewed are negative, apart from the ones contained in the history. Physical Exam Physical Exam: The patient is awake, alert and oriented 3, chronically ill looking, pale HEENT--PERRL, EOMI, mucous membranes and oropharynx mildly dry Neck--supple. No JVD. No bruits. Thyroid normal, trachea midline, no adenopathy. Heart--normal S1 and S2. No murmurs, rubs or gallops. Lungs--clear bilaterally, no respiratory distress, no accessory muscle use. Abdomen--some distension Extremities--bilateral leg edema Dermatologic--normal skin turgor, normal color, no abnormal lymph nodes, no rash. Neurologic--cranial nerves II through XII grossly intact. Rheumatologic--normal range of motion. Psychiatric--normal affect. Results & Data Results & Data ([place]) Vital Signs (Past 12 Hours) Vital Signs O2 Del Method 08/09/22 07:30 Room Air PG Care Time/CCT Total # of Minutes Spent Total Time Spent with Patient: Total time spent is greater than 50% in coordination of care (as documented) at patient's floor/unit and/or counseling patient: Coding Level of Care Code 22440 SUB INP/OBS CARE 2/35MIN Diagnoses Admission for hospice care Z51.5 Prostate cancer metastatic to bone C61; C79.51 Liver metastases C78.7 YASSINE (acute kidney injury) N17.9 Hyperkalemia E87.5 Palliative care encounter Z51.5 Cancer related pain G89.3 Time Spent (min) 35
[2022-08-10] MEDS: LIDOCAINE 5% 1 PATCH TD SCH (07:40)
[2022-08-10] MEDS: CYCLOBENZAPRINE HCL 10 MG TAB PO SCH (07:40)
[2022-08-10] MEDS: dexAMETHasone 4 MG in SYRINGE 0 ML IV SCH (07:40)
--- NOTE | 2022-08-10 11:23 | Palliative Care Progress Note ---
Date of Service August 10, 2022 Assessment & Plan (1) Palliative care encounter: Plan: Abhijit has metastatic prostate cancer to bone, liver etc with refractory and very severe cancer related pain. He did not have relief with multiple oral and transdermal regimens, therefore we initiated infusional Dilaudid and have been steadily escalating dosing, w/modest improvement. He has not been able to use the BODY CARE MANAGER button for the past day per family, as he becomes less interactive and is sleeping more I am stopping the BODY CARE MANAGER bc he can no longer operate it. I am starting a Dilaudid infusion at 1.4mg per hour. I have added a nurse administration prn dose of Dilaudid 1mg IV Q10min prn pain, air hunger. I have increased Ativan to 1mg IV for myoclonus and agitation I have stopped oral meds, he is no longer able to take Apneas noted, skin cooler/color paler. patient is beginning to transition to an active dying process and likely has an anticipated survival of days. I have asked CM to update hospice who recently moved him to weekly visits from daily, but I feel he needs to be resumed on daily visits given escalating symptoms and decline as outlined above. (2) Cancer related pain: Plan: See above #1 (3) Need for comfort care: Plan: [facility]: I have asked hospice to resume daily visits, pt is transitioning to active dying severe cancer pain, refractory (4) Admission for hospice care: (5) Prostate cancer metastatic to bone: (6) Liver metastases: Plan Dilaudid infusion ordered, BODY CARE MANAGER has been d/c Have asked hospice to re engage daily visits He is transitioning to active dying, anticipated survival likely days I will follow up on Saturday but page me for ay urgent needs through weekend if needed Please check on pt q2h, turn and position, use mouth swabs with cold water to relieve mucosal dryness. Radha William DNP Clinical Director, Palliative Medicine Admission and Anticipated Discharge Date Admission Date: July 31, 2022 Subjective Pt continues to decline he is now much less interactive or responsive. Dtamaya Palacios at bedside, notes he seems better in the mornings but fades as the day progresses. She sees he is much weaker, cannot hold his drink, not taking much PO/not hungry. Occasionally asking for mouth to be moistened with cold water. ulises notes pt is moaning and grimacing, wrinkling face and appearing to be in pain, she would like to see his pain improve. Advised by care mgt that pt daughter requested family meeting later this afternoon because she has concerns about the following: Nursing care: family perceive pt "not turning/repositioning" Discharge:if SNF move is right move versus staying here Of note, pt had not voiced prior concerns with his care through this admission to me. His Pain mgt has been under constant revision with myself and hospice. Review of Systems Review of Systems: Unobtainable due to reduced consciousness Physical Exam Physical Exam: at time of my eval he is not interactive or arousable, he is asleep, with slightly irreg breaths at time, short apneas 3 sec he is pale, cool to touch, no obvious mottling unable to follow command myoclonic jerks noted intermittently moaning and grimacing at times Results & Data ([facility]) Vital Signs (Past 12 Hours) Vital Signs O2 Del Method 08/10/22 07:35 Room Air PG Care Time/CCT Total # of Minutes Spent Total Time Spent: 60 Total Time Spent with Patient: Total time spent is greater than 50% in coordination of care (as documented) at patient's floor/unit and/or counseling patient: Coding [place] [address] SUB INP/OBS CARE 3/50MIN Patient Type Established History Comprehensive Exam Detailed Medical Decision Making Moderate Complexity Diagnoses Palliative care encounter Z51.5 Cancer related pain G89.3 Need for comfort care Admission for hospice care Z51.5 Prostate cancer metastatic to bone C61; C79.51 Liver metastases C78.7
--- NOTE | 2022-08-10 13:44 | Hospitalist Progress Note ---
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 Appreciate palliative care team assistance Pain is still an issue, average 6/10 at rest, movement will worsen it such as trying to sit at edge of bed Dilaudid infusion changed to continuous rate 1 mg per hour with 0.8mg SR. UNIX SYSTEM ADMINISTRATOR q10min prn. BP meds, etc have been discontinued in keeping with Hospice philosophy (2) Prostate cancer metastatic to bone: Plan: severe mets to bone left hip pain is the worset area of pain cont SR. UNIX SYSTEM ADMINISTRATOR dilaudid cont dexamethasone 4mg IV BID for bone pain (3) Liver metastases: Plan: numerous, with largest met in the left lobe the left lobe met is palpable on exam and is tender (4) YASSINE (acute kidney injury): Plan: last documented Cr was ~4.5 with resulting hyperkalemia (5) Hyperkalemia: Plan: monitor (6) Palliative care encounter: Plan: Abhijit has metastatic prostate cancer to bone, liver etc with refractory and very severe cancer related pain failing multiple oral and transdermal regimen, now improving with infusional Dilaudid. He is coming to terms with his mortality, he is acknowledging that the end is closer. (7) Cancer related pain: Plan Awaiting placement at [facility], [facility] likely to accept, CW working to straighten out issues of financing Admission and Anticipated Discharge Date Admission Date: July 31, 2022 Subjective patient seen and examined, says his pain is under fair control with SR. UNIX SYSTEM ADMINISTRATOR Review of Systems Review of Systems: All systems reviewed are negative, apart from the ones contained in the history. Physical Exam Physical Exam: The patient is awake, alert and oriented 3, chronically ill looking, pale HEENT--PERRL, EOMI, mucous membranes and oropharynx mildly dry Neck--supple. No JVD. No bruits. Thyroid normal, trachea midline, no adenopathy. Heart--normal S1 and S2. No murmurs, rubs or gallops. Lungs--clear bilaterally, no respiratory distress, no accessory muscle use. Abdomen--some distension Extremities--bilateral leg edema Dermatologic--normal skin turgor, normal color, no abnormal lymph nodes, no carlos h. Neurologic--cranial nerves II through XII grossly intact. Rheumatologic--normal range of motion. Psychiatric--normal affect. Results & Data Results & Data ([facility] [place]) Vital Signs (Past 12 Hours) Vital Signs O2 Del Method 08/10/22 07:35 Room Air PG Care Time/CCT Total # of Minutes Spent Total Time Spent with Patient: Total time spent is greater than 50% in coordination of care (as documented) at patient's floor/unit and/or counseling patient: Coding Level of Care Code 93517 SUB INP/OBS CARE 2/35MIN Diagnoses Admission for hospice care Z51.5 Prostate cancer metastatic to bone C61; C79.51 Liver metastases C78.7 YASSINE (acute kidney injury) N17.9 Hyperkalemia E87.5 Palliative care encounter Z51.5 Cancer related pain G89.3 Time Spent (min) 35
[2022-08-10] MEDS: SODIUM CHLORIDE 0.9% 1000ML 1,000 ML IV SCH (15:31)
[2022-08-10] MEDS ORDERED: GLYCOPYRROLATE 0.2 MG/ML VIAL IV PRN (15:33)
[2022-08-10] MEDS: HYDROmorphone/NSS 100 MG/100 ML BAG IV SCH (16:23)
[2022-08-10] MEDS: LORazepam 2 MG/1 ML VIAL IV PRN (20:06)
[2022-08-11] MEDS: LIDOCAINE 5% 1 PATCH TD SCH (09:52)
[2022-08-11] MEDS ORDERED: bisacodyL 10 MG SUPP PR STA (10:47)
[2022-08-11] MEDS ORDERED: bisacodyL 10 MG SUPP PR SCH (11:00)
--- NOTE | 2022-08-11 15:02 | Hospitalist Progress Note ---
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 Appreciate palliative care team assistance Pain is still an issue, average 6/10 at rest, movement will worsen it such as trying to sit at edge of bed Dilaudid infusion changed to continuous rate 1 mg per hour with 0.8mg SAP BW DEVELOPER q10min prn. BP meds, etc have been discontinued in keeping with Hospice philosophy (2) Prostate cancer metastatic to bone: Plan: severe mets to bone left hip pain SAP BW DEVELOPER dilaudid has been replaced by dilaudid drip cont dexamethasone 4mg IV BID for bone pain (3) Liver metastases: Plan: numerous, with largest met in the left lobe the left lobe met is palpable on exam and is tender (4) YASSINE (acute kidney injury): Plan: last documented Cr was ~4.5 with resulting hyperkalemia (5) Hyperkalemia: Plan: monitor (6) Palliative care encounter: Plan: Abhijit has metastatic prostate cancer to bone, liver etc with refractory and very severe cancer related pain failing multiple oral and transdermal regimen, now improving with infusional Dilaudid. He is coming to terms with his mortality, he is acknowledging that the end is closer. (7) Cancer related pain: Plan Awaiting placement at [facility], [facility] lnitially going to accept,but patient now on dilaudid drip Admission and Anticipated Discharge Date Admission Date: July 31, 2022 Subjective patient continues to decline, his now very weak and much less interactive Review of Systems Review of Systems: unreliable due to lethargy Physical Exam Physical Exam: The patient is awake, lethargic, chronically ill looking, pale HEENT--PERRL, EOMI, mucous membranes and oropharynx mildly dry Neck--supple. No JVD. No bruits. Thyroid normal, trachea midline, no adenopathy. Heart--normal S1 and S2. No murmurs, rubs or gallops. Lungs--clear bilaterally, no respiratory distress, no accessory muscle use. Abdomen--some distension Extremities--bilateral leg edema Dermatologic--normal skin turgor, normal color, no abnormal lymph nodes, no rash. Neurologic--cranial nerves II through XII grossly intact. Rheumatologic--normal range of motion. Psychiatric--flat affect PG Care Time/CCT Total # of Minutes Spent Total Time Spent with Patient: Total time spent is greater than 50% in coordination of care (as documented) at patient's floor/unit and/or counseling patient: Coding Level of Care Code 47552 SUB INP/OBS CARE 2/35MIN Diagnoses Admission for hospice care Z51.5 Prostate cancer metastatic to bone C61; C79.51 Liver metastases C78.7 YASSINE (acute kidney injury) N17.9 Hyperkalemia E87.5 Palliative care encounter Z51.5 Cancer related pain G89.3 Time Spent (min) 35
[2022-08-11] MEDS: HYDROmorphone BOLUS from BAG IV PRN (21:23)
[2022-08-12] MEDS: HYDROmorphone BOLUS from BAG IV PRN (05:15)
[2022-08-12] MEDS: LIDOCAINE 5% 1 PATCH TD SCH (07:47)
[2022-08-12] MEDS ORDERED: HYDROmorphone BOLUS from BAG IV PRN (12:53)
--- NOTE | 2022-08-12 12:53 | Hospitalist Progress Note ---
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 Appreciate palliative care team assistance Pain is still an issue, average 6/10 at rest, movement will worsen it such as trying to sit at edge of bed Dilaudid infusion changed to continuous rate 1 mg per hour with 0.8mg NETSUITE DEVELOPER q10min prn. BP meds, etc have been discontinued in keeping with Hospice philosophy (2) Prostate cancer metastatic to bone: Plan: severe mets to bone left hip pain NETSUITE DEVELOPER dilaudid has been replaced by dilaudid drip cont dexamethasone 4mg IV BID for bone pain (3) Liver metastases: Plan: numerous, with largest met in the left lobe the left lobe met is palpable on exam and is tender (4) YASSINE (acute kidney injury): Plan: stable (5) Hyperkalemia: Plan: monitor (6) Palliative care encounter: Plan: Abhijit has metastatic prostate cancer to bone, liver etc with refractory and very severe cancer related pain failing multiple oral and transdermal regimen, now improving with infusional Dilaudid. He is coming to terms with his mortality, he is acknowledging that the end is closer. (7) Cancer related pain: Plan Awaiting placement at [facility], [facility] lnitially going to accept,but patient now on dilaudid drip Admission and Anticipated Discharge Date Admission Date: July 31, 2022 Subjective patient continues to decline, his now very weak and much less interactive Review of Systems Review of Systems: unreliable due to lethargy Physical Exam Physical Exam: The patient is awake, lethargic, chronically ill looking, pale HEENT--PERRL, EOMI, mucous membranes and oropharynx mildly dry Neck--supple. No JVD. No bruits. Thyroid normal, trachea midline, no adenopathy. Heart--normal S1 and S2. No murmurs, rubs or gallops. Lungs--clear bilaterally, no respiratory distress, no accessory muscle use. Abdomen--some distension Extremities--bilateral leg edema Dermatologic--normal skin turgor, normal color, no abnormal lymph nodes, no rash. Neurologic--cranial nerves II through XII grossly intact. Rheumatologic--normal range of motion. Psychiatric--flat affect Results & Data Results & Data ([facility]) Vital Signs (Past 12 Hours) Vital Signs O2 Del Method 02/05/23 08:00 Room Air PG Care Time/CCT Total # of Minutes Spent Total Time Spent with Patient: Total time spent is greater than 50% in coordination of care (as documented) at patient's floor/unit and/or counseling patient: Coding Level of Care Code 61823 SUB INP/OBS CARE 2/35MIN Diagnoses Admission for hospice care Z51.5 Prostate cancer metastatic to bone C61; C79.51 Liver metastases C78.7 YASSINE (acute kidney injury) N17.9 Hyperkalemia E87.5 Palliative care encounter Z51.5 Cancer related pain G89.3 Time Spent (min) 35
[2022-08-12] MEDS ORDERED: HYDROmorphone INJ 1 MG/ML SYRINGE IV PRN (12:57)
[2022-08-12] MEDS: LORazepam 2 MG/1 ML VIAL IV PRN (13:07)
[2022-08-12] MEDS ORDERED: FUROSEMIDE 40 MG/4 ML VIAL IV SCH ×2 (14:45→21:00)
[2022-08-12] MEDS ORDERED: FUROSEMIDE 40 MG/4 ML VIAL IV ONE (14:46)
[2022-08-12] MEDS: HYDROmorphone/NSS 100 MG/100 ML BAG IV SCH (23:33)
[2022-08-13] MEDS: FUROSEMIDE 40 MG/4 ML VIAL IV SCH ×2 (06:25→18:36)
[2022-08-13] MEDS: LORazepam 2 MG/1 ML VIAL IV PRN ×2 (06:44→13:19)
[2022-08-13] MEDS: LIDOCAINE 5% 1 PATCH TD SCH (09:21)
--- NOTE | 2022-08-13 09:22 | Communication Note ---
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 I modified prn dose, increased hourly rate and increased total hourly max for titration protocol. The PRN dose added is in addition to the bolus from bag option, in case he needs more urgent control of symptoms. I have asked nursing to utilize his additional PRN meds to improve sx mgt, a dose of Ativan IV will be given now and I am hopeful it will help with his spasms and agitation. Dary mentioned additional complain of scrotal edema and primary team was willing to diurese but deferred to me. I am ok with a trial of diuresis, but [facility] mgt of same would be per hospice protocols, as pt will be transitioned to a chronic care facility if he remains stable. A follow up family meeting is planned for 08/13/22 at 2pm with daughter, Suzanne, at pt bedside. TS 54min Radha William DNP Clinical Director, Palliative Medicine
--- NOTE | 2022-08-13 13:00 | Hospitalist Progress Note ---
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 Appreciate palliative care team assistance Pain is still an issue, average 6/10 at rest, movement will worsen it such as trying to sit at edge of bed Dilaudid infusion changed to continuous rate 1 mg per hour with 0.8mg UMBRELLA TIPPER q10min prn. BP meds, etc have been discontinued in keeping with Hospice philosophy Patient is now less responsive, I think he is actively dying (2) Prostate cancer metastatic to bone: Plan: severe mets to bone left hip pain UMBRELLA TIPPER dilaudid has been replaced by dilaudid drip cont dexamethasone 4mg IV BID for bone pain (3) Liver metastases: Plan: numerous, with largest met in the left lobe the left lobe met is palpable on exam and is tender (4) YASSINE (acute kidney injury): Plan: stable (5) Hyperkalemia: Plan: monitor (6) Palliative care encounter: Plan: Abhijit has metastatic prostate cancer to bone, liver etc with refractory and very severe cancer related pain failing multiple oral and transdermal regimen, now improving with infusional Dilaudid. He is coming to terms with his mortality, he is acknowledging that the end is closer. (7) Cancer related pain: Plan patient is actively dying Admission and Anticipated Discharge Date Admission Date: July 31, 2022 Subjective patient continues to decline, his now very weak and much less responsive, Review of Systems Review of Systems: unreliable due to lethargy Physical Exam Physical Exam: The patient is lethargic, unable to respond HEENT--PERRL, EOMI, mucous membranes and oropharynx mildly dry Neck--supple. No JVD. No bruits. Thyroid normal, trachea midline, no adenopathy. Heart--normal S1 and S2. No murmurs, rubs or gallops. Lungs--clear bilaterally, no respiratory distress, no accessory muscle use. Abdomen--some distension Extremities--bilateral leg edema Dermatologic--poor skin tugor, shiny Neurologic--cranial nerves II through XII grossly intact. Rheumatologic--normal range of motion. Psychiatric--flat affect Results & Data Results & Data ([facility]) Vital Signs (Past 12 Hours) Vital Signs Temp Pulse Resp BP Pulse Ox O2 Del Method 08/13/22 06:29 98.4 F 132 H 18 106/71 97 Room Air PG Care Time/CCT Total # of Minutes Spent Total Time Spent with Patient: Total time spent is greater than 50% in coordination of care (as documented) at patient's floor/unit and/or counseling patient: Coding Level of Care Code 42175 SUB INP/OBS CARE 08/01MIN Diagnoses Admission for hospice care Z51.5 Prostate cancer metastatic to bone C61; C79.51 Liver metastases C78.7 YASSINE (acute kidney injury) N17.9 Hyperkalemia E87.5 Palliative care encounter Z51.5 Cancer related pain G89.3 Time Spent (min) 25
--- NOTE | 2022-08-13 13:05 | Palliative Care Progress Note ---
Date of Service August 13, 2022 Assessment & Plan (1) Palliative care encounter: Plan: Abhijit has metastatic prostate cancer to bone, liver etc with refractory and very severe cancer related pain. He did not have relief with multiple oral and transdermal regimens, therefore we initiated infusional Dilaudid and have been steadily escalating dosing, w/modest improvement. He has not been able to use the DANCE MASTER button for the past day per family, as he becomes less interactive and is sleeping more I stopped the DANCE MASTER bc he can no longer operate it and started a Dilaudid infusion with a nurse administration prn dose of Dilaudid. The dosing was further modified over the weekend when I was notified of his persisting pain and distress. Continue Ativan to 1mg IV for myoclonus and agitation Apneas noted, skin cooler/color paler. patient is beginning to transition to an active dying process and likely has an anticipated survival of days. I have asked CORY to update hospice who recently moved him to weekly visits from daily, but I feel he needs to be resumed on daily visits given escalating symptoms and decline as outlined above. (2) Cancer related pain: Plan: See above #1 (3) Need for comfort care: Plan: GIP: I have asked hospice to resume daily visits, pt is transitioning to active dying severe cancer pain, refractory (4) Admission for hospice care: (5) Prostate cancer metastatic to bone: (6) Liver metastases: Plan Met with Talat Palacios x 20min at bedside 2-230, joined at 210 by Paxton Salas CM. I reviewed changes as noted above: worsening pain, terminal delirium, he has escalating and complex symptom mgt needs. I advised he is moving to active EOL and likely has hours to days. I discussed changes pt may move through in the dying process including but not limited to sleeping more, disorientation when awake, restlessness, diminished senses/inability to respond to stimulus although ability to be aware of them remains intact longer, changes in body temperatures, skin changes/mottling/cyanosis, respiratory pattern changes, oral secretions. Family verbalized understanding. The goal is to assure a peaceful . She would like to be called if possible, she works in the [employer] and can be here in 5 min. Radha will advised nursing of same. I updated Lucretia about the med changes I made: * Dilaudid infusion as ordered * Ativan increased * Haldol intensol added * continue lasix x1 more day, if not better tomorrow would d/c * d/c scrotal sling, dtr reports pt complained it was uncomfortable through the weekend. Have asked hospice to re engage daily visits He is now in an active dying process, anticipated survival hours to days Please check on pt q2h, turn and position, use mouth swabs with cold water to relieve mucosal dryness. Radha William DNP Clinical Director, Palliative Medicine Admission and Anticipated Discharge Date Admission Date: July 31, 2022 Subjective Pt remains on GIP, end of life care; had increased pain over weekend for which I was paged, orders were modified. He has been more comfortable but still has signif pain and discomfort with repositioning and personal care. Nursing has been using ativan a little more. Ativan 1mg given today, on dose 08/12 and one dose 08/10/22 Dilaudid 1.2mg bolus x 3 given 08/12/22 Dilaudid 1.5mg prn dose given x3 08/12/22 Dilaudid continuous rate is 2mg/hr Review of Systems Review of Systems: Unobtainable due to reduced consciousness Physical Exam Physical Exam: Weakly arousable, grimacing, moaning, eyes open to voice but no focus +apneas to 10 sec lungs diminished S1S2, tachy at times abd soft he is pale, cool to touch, mild cyanosis nailbeds unable to follow command myoclonic jerks noted intermittently Results & Data ([facility]) Vital Signs (Past 12 Hours) Vital Signs Temp Pulse Resp BP Pulse Ox O2 Del Method 08/13/22 06:29 36.9 C 132 H 18 106/71 97 Room Air PG Care Time/CCT Total # of Minutes Spent Total Time Spent: 60 Total Time Spent with Patient: Total time spent is greater than 50% in coordination of care (as documented) at patient's floor/unit and/or counseling patient: Coding [place] [address] SUB INP/OBS CARE 3/50MIN Patient Type Established History Expanded Problem Focused Exam Comprehensive Medical Decision Making High Complexity Diagnoses Palliative care encounter Z51.5 Cancer related pain G89.3 Need for comfort care Admission for hospice care Z51.5 Prostate cancer metastatic to bone C61; C79.51 Liver metastases C78.7
[2022-08-13] MEDS ORDERED: HALOPERIDOL 2 MG/1 ML UDP PO PRN (13:26)
[2022-08-13] MEDS ORDERED: HYDROmorphone BOLUS from BAG IV PRN (13:29)
[2022-08-13] MEDS ORDERED: LORazepam 2 MG/1 ML VIAL IV PRN (13:29)
[2022-08-14] MEDS: FUROSEMIDE 40 MG/4 ML VIAL IV SCH ×2 (06:06→18:05)
--- NOTE | 2022-08-14 13:56 | Hospitalist Progress Note ---
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 Appreciate palliative care team assistance Dilaudid infusion changed to continuous rate 1 mg per hour with 0.8mg SHRIMPING BOAT CAPTAIN q10min prn. meds, etc have been discontinued in keeping with Hospice philosophy Patient is now less responsive, he is actively dying (2) Prostate cancer metastatic to bone: Plan: severe mets to bone SHRIMPING BOAT CAPTAIN dilaudid has been replaced by dilaudid drip cont dexamethasone 4mg IV BID for bone pain (3) Liver metastases: Plan: numerous, with largest met in the left lobe the left lobe met is palpable on exam and is tender (4) YASSINE (acute kidney injury): Plan: stable (5) Hyperkalemia: Plan: monitor (6) Palliative care encounter: Plan: Abhijit has metastatic prostate cancer to bone, liver etc with refractory and very severe cancer related pain failing multiple oral and transdermal regimen, now improving with infusional Dilaudid. He is actively dying (7) Cancer related pain: Plan patient is actively dying Admission and Anticipated Discharge Date Admission Date: July 31, 2022 Subjective patient is now unresponsive, actively dying Review of Systems Review of Systems: unreliable due to lethargy Physical Exam Physical Exam: The patient is unresponsive HEENT--PERRL, EOMI,dry Neck--supple. No JVD. No bruits. Thyroid normal, trachea midline, no adenopathy. Heart--normal S1 and S2. No murmurs, rubs or gallops. Lungs--reduced air entry Abdomen--some distension Extremities--bilateral leg edema Dermatologic--poor skin tugor, shiny Neurologic--cranial nerves II through XII grossly intact. Psychiatric--unresponsive Results & Data Results & Data ([facility]) Vital Signs (Past 12 Hours) Vital Signs O2 Del Method 08/14/22 07:11 Room Air PG Care Time/CCT Total # of Minutes Spent Total Time Spent with Patient: Total time spent is greater than 50% in coordination of care (as documented) at patient's floor/unit and/or counseling patient: Coding Level of Care Code 20928 SUB INP/OBS CARE /25MIN Diagnoses Admission for hospice care Z51.5 Prostate cancer metastatic to bone C61; C79.51 Liver metastases C78.7 YASSINE (acute kidney injury) N17.9 Hyperkalemia E87.5 Palliative care encounter Z51.5 Cancer related pain G89.3 Time Spent (min) 25
--- NOTE | 2022-08-14 21:01 | Death Pronouncement Note ---
Date of Service August 14, 2022 Pronouncement Note Admission Date Admission Date: July 31, 2022 Date and Time of Date of : 08/14/22 Time of : 20:56 PCOD Preliminary cause of : Prostate cancer metastatic to multiple sites Contributing Factors (1) Admission for hospice care: (2) Prostate cancer metastatic to bone: (3) Liver metastases: (4) YASSINE (acute kidney injury): (5) Hyperkalemia: (6) Palliative care encounter: (7) Cancer related pain: Summary Additional details: I was called to pronounce the of Abhijit Brennan ( 1960) by María Elena Siddiqi on 08/14/2022. Upon entering the room, patient was found to be in a terminal state. They were unresponsive to, and did not withdrawal from, verbal or tactile stimuli. They were unresponsive to pupillary and oculocephalic reflexes. On cardiopulmonary exam, they were found to be without detectable carotid pulses, and without spontaneous heart tones or respirations. Time of was pronounced by me on 08/14/2022 at 20:56. Attending physican was notified. Next of kin was notified by María Elena Siddiqi. Signed: Alex Holland D.O. Additional Data Attending physician: Lesia Osorio MD
--- NOTE | 2022-08-15 07:34 | Discharge Summary ---
Date of Service August 15, 2022 Admission HPI Per Admitting Provider Very pleasant but unfortunate 62yo male with stage 4 prostate cancer and extensive metastatic disease to the bones, lymph nodes, and liver - recently hospitalized from 07/13/22 to 07/31/22 for weakness/severe L hip pain due to bony mets/failure to thrive/YASSINE. He had a protracted hospitalization marked by initiation of palliative radiation to the left hip for pain control, initiation of fentanyl patch and other modalities for pain control, placement of b/l ureteral stents for b/l hydronephrosis, and later in his stay treatment of recurrent YASSINE with hyperkalemia. Despite 9 fractions of palliative radiation and escalating amounts of fentanyl patch his left hip pain and upper abdominal pain persisted. He was ultimately placed on UNIVERSITY DEMONSTRATOR dilaudid for control of his pain. YASSINE late in the previous stay was thought 2nd to dehydration/pre-renal causes. Hyperkalemia was treated. The palliative care team continued to assist in management of his pain. There was discussion about him going to a local SNF post-discharge with perhaps hospice. On 07/30/22 the patient's sister arrived from out of town. Discussions were held between the palliative care team and Mr Brennan along with his family. At that time he was transitioned to full comfort care pathway. Additional adjustments were made on his UNIVERSITY DEMONSTRATOR dilaudid. On 07/31/22 a local hospice agency evaluated Mr Brennan for inpatient hospice status and was indeed approved for inpatient hospice status/treatment. Thus, he is now being readmitted to inpatient hospice status for pain control and symptom control with the help of his local hospice agency as well as our palliative care team. Principal Diagnosis metastatic cancer Discharge Exam The patient is unresponsive HEENT--PERRL, EOMI,dry Neck--supple. No JVD. No bruits. Thyroid normal, trachea midline, no adenopathy. Heart--normal S1 and S2. No murmurs, rubs or gallops. Lungs--reduced air entry Abdomen--some distension Extremities--bilateral leg edema Dermatologic--poor skin tugor, shiny Neurologic--cranial nerves II through XII grossly intact. Psychiatric--unresponsive Discharge Data Allergies Allergy/AdvReac Type Severity Reaction Status Date / Time No Known Allergies Allergy Verified 07/13/22 15:19 Consultations 07/31/22 16:10 Consult Palliative Care Routine Hospital Course (1) Admission for hospice care: History of metastatic prostate cancer to bones Appreciate hospice agency support & assistance/recs. Appreciate palliative care team assistance Dilaudid infusion changed to continuous rate 1 mg per hour with 0.8mg UNIVERSITY DEMONSTRATOR q10min prn. meds, etc have been discontinued in keeping with Hospice philosophy Patient (2) Prostate cancer metastatic to bone: Patient (3) Liver metastases: Patient (4) YASSINE (acute kidney injury): Patient (5) Hyperkalemia: monitor (6) Palliative care encounter: Patient (7) Cancer related pain: Plan Patient Total Time Total Time Spent Total Time Spent (In Minutes): 20 Discharge Plan Discharge Items Patient Disposition: Other Date/Time: 08/14/22 20:56 Coding Level of Care Code None Diagnoses Admission for hospice care Z51.5 Prostate cancer metastatic to bone C61; C79.51 Liver metastases C78.7 YASSINE (acute kidney injury) N17.9 Hyperkalemia E87.5 Palliative care encounter Z51.5 Cancer related pain G89.3 Time Spent (min) 20
== END 2022-08-15 01:07 | disposition expired | DRG 951 ==
LOC: SUATTDRO 15:30 → 3E 15:30